=== PATIENT | male | born 1965 | race Caucasian/White ===

== ENCOUNTER 2019-03-28 04:32 | Inpatient (IN) | payer OTHER ==
[~2019-03-28] VITALS: Ht 172.7 cm; Wt 75.4 kg
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
--- OUTSIDE RECORDS SUMMARY | 2019-03-28 04:38 | XMS REPORT | CCD ---
Author Author Auto Generated Organization [facility] Address Unknown Phone Unavailable Care Team Providers Care Ticket Taker Name Role Phone Ken Alvares CP Allergies, Adverse Reactions, Alerts Substance Reaction Status NKDA Active Problem List Condition Effective Dates Status Chest pain Active Medications Medication Instructions Start Date End Date Status Saline Flush 0.9% 5 ml, Route: IVP, Drug Form: INJ, 10/22/2011 10/22/2011 Discontinued PRN, PRN Line Flush, Start date: 10/22/11 15:08:00, Duration: 24 hr, Stop date: 10/23/11 15:07:00 pneumococcal 0.5 ml, Route: IM, Drug Form: INJ, 12/16/2008 12/17/2008 Completed 23-valent vaccine ONCALL, Start date: 12/16/08 10:05:11, Stop date: 01/15/09 9:50:11 Zofran 4 mg, Route: IVP, Drug form: INJ, 10/22/2011 10/22/2011 Completed ONCE, Priority: STAT, Start date: 10/22/11 17:01:00, Stop date: 10/22/11 17:01:00 morphine Sulfate 4 mg, Route: IVP, ONCE, Priority: 10/22/2011 10/22/2011 Completed STAT, Start date: 10/22/11 17:00:00, Stop date: 10/22/11 17:00:00 acetaminophen-hydroc 1 tab, PO, Q4H, PRN, 15 tab, for 10/22/2011 Ordered odone 325 mg-5 mg pain, Substitution Allowed, oral tablet Maintenance, TAB Immunizations Vaccine Date Status pneumococcal 23-valent vaccine 12/17/2008 Auth (Verified) Vital Signs Most recent to oldest [Reference Range]: 1 Height 172.72 cm (10/22/2011 13:28:00) Weight 72.727 kg (10/22/2011 13:28:00) Results URINALYSIS Most recent to oldest [Reference Range]: 1 UA Turbidity [Clear] Clear (10/22/2011 17:00:00) UA Color [Yellow] Yellow *NA* (10/22/2011 17:00:00) UA pH [5.0-8.0] 8.5 *HI* (10/22/2011 17:00:00) UA Spec Grav [<=1.030] 1.010 (10/22/2011 17:00:00) UA Glucose [Negative] Negative (10/22/2011 17:00:00) UA Blood [Negative] Negative (10/22/2011 17:00:00) UA Ketones [Negative] Negative *NA* (10/22/2011 17:00:00) UA Protein [Negative] Trace *ABN* (10/22/2011 17:00:00) UA Urobilinogen [0.1-1.0 EU/dL] 1.0 EU/dL (10/22/2011 17:00:00) UA Bili [Negative] Negative *NA* (10/22/2011 17:00:00) UA Leuk Est [Negative] Negative (10/22/2011 17:00:00) UA Nitrite [Negative] Negative (10/22/2011 17:00:00) UA WBC [None Seen /HPF] 3-5 /HPF (10/22/2011 17:00:00) UA RBC [0-2 /HPF] 0-2 /HPF (10/22/2011 17:00:00) UA Bacteria [None Seen /HPF] Occasional /HPF (10/22/2011 17:00:00) UA Sq Epi [Few /LPF] Rare /LPF (10/22/2011 17:00:00) Micro? Performed (10/22/2011 17:00:00) CHEMISTRY Most recent to oldest [Reference Range]: 1 Sodium Lvl [135-145 mEq/L] 141 mEq/L (10/22/2011 15:00:00) Potassium Lvl [3.5-5.1 mEq/L] 4.2 mEq/L (10/22/2011 15:00:00) Chloride Lvl [95-109 mEq/L] 106 mEq/L (10/22/2011 15:00:00) CO2 [24-32 mEq/L] 26 mEq/L (10/22/2011 15:00:00) AGAP [10.0-20.0 mEq/L] 13.2 mEq/L (10/22/2011 15:00:00) Creatinine Lvl [0.5-1.4 mg/dL] 0.7 mg/dL (10/22/2011 15:00:00) BUN [7-22 mg/dL] 10 mg/dL (10/22/2011 15:00:00) B/C Ratio [6-25] 14 (10/22/2011 15:00:00) Glucose Lvl 92 mg/dL 1 *NA* (10/22/2011:00:00) Total Protein [6.4-8.4 g/dL] 7.2 g/dL (10/22/2011:00:00) Albumin Lvl [3.5-5.0 g/dL] 3.9 g/dL (10/22/2011 15:00:00) Globulin [2.0-4.0 g/dL] 3.3 g/dL (10/22/2011 15:00:00) A/G Ratio [0.7-1.6] 1.2 (10/22/2011 15:00:00) Calcium Lvl [8.5-10.5 mg/dL] 8.7 mg/dL (10/22/2011 15:00:00) ALT [0-65 U/L] 52 U/L (10/22/2011 15:00:00) AST [0-37 U/L] 42 U/L *HI* (10/22/2011 15:00:00) Alk Phos [39-136 U/L] 97 U/L (10/22/2011 15:00:00) Bili Total [0.2-1.3 mg/dL] 0.3 mg/dL (10/22/2011 15:00:00) Lipase Lvl [73-393 U/L] 494 U/L *HI* (10/22/2011 15:00:00) Total CK [12-191 U/L] 23 U/L (10/22/2011 15:00:00) CK MB [0.5-3.6 ng/mL] <0.5 ng/mL (10/22/2011 15:00:00) CK MB Index [0.0-2.5] <2.2 (10/22/2011 15:00:00) Troponin-I [0.00-0.40 ng/mL] <0.02 ng/mL (10/22/2011 15:00:00) U Amph Scr [Negative] Negative *NA* (10/22/2011 17:00:00) U Stephanie Scr [Negative] Negative *NA* (10/22/2011 17:00:00) U Benzodia Scr [Negative] Positive *ABN* (10/22/2011 17:00:00) U Cocaine Scr [Negative] Negative *NA* (10/22/2011 17:00:00) U Opiate Scr [Negative] Negative *NA* (10/22/2011 17:00:00) U Phencyc Scr [Negative] Negative *NA* (10/22/2011 17:00:00) U Cannab Scr [Negative] Positive *ABN* (10/22/2011 17:00:00) UDS Note See Note 2 (10/22/2011 17:00:00) 1Interpretive Data: Reference Ranges : 0 - 7 days : 41 - 90 mg/dL7 days - 150 yrs : 70 - 99 mg/dL (fasting), based on the clinical recommendations of the [place] [employer]. 2Interpretive Data: Drugs reported as positive have not been confirmed by a second method and should be used for medical purposes only. To orderconfirmation, contact laboratory. note: Below are cut-off concentrations for all urine drugs of abuse performed in the laboratory. Some drugs listed in the table may not be included in this panel.Description Cut-off concentration Amphetamine 1000 ng/mLBarbiturates 200 ng/mLBenzodiazepines 300 ng/mLCocaine metabolites 300 ng/mLOpiates 300 ng/mLPhencyclidine 25 ng/mLPropoxyphene 300 ng/mLMarijuana metabolites 50 ng/mLMethadone 300 ng/mLUrine alcohol 20 mg/dL HEMATOLOGY Most recent to oldest [Reference Range]: 1 WBC [3.7-10.4 K/CMM] 2.9 K/CMM *LOW* (10/22/2011 15:00:00) RBC [4.70-6.10 M/CMM] 3.70 M/CMM *LOW* (10/22/2011 15:00:00) Hgb [14.0-18.0 g/dL] 12.2 g/dL *LOW* (10/22/2011 15:00:00) Hct [42.0-54.0 %] 35.3 % *LOW* (10/22/2011:00:00) MCV [80.0-94.0 fL] 95.6 fL *HI* (10/22/2011 15:00:00) MCH [27.0-31.0 pg] 33.1 pg *HI* (10/22/2011:00:00) MCHC [32.0-36.0 g/dL] 34.6 g/dL (10/22/2011 15:00:00) RDW [11.5-14.5 %] 15.4 % *HI* (10/22/2011 15:00:00) Platelet [133-450 K/CMM] 113 K/CMM *LOW* (10/22/2011 15:00:00) MPV [7.4-10.4 fL] 7.5 fL (10/22/2011 15:00:00) Segs [45.0-75.0 %] 36.0 % *LOW* (10/22/2011:00:00) Bands [0.0-11.0 %] 26.0 % *HI* (10/22/2011 15:00:00) Lymphocytes [20.0-40.0 %] 23.0 % (10/22/2011 15:00:00) Monocytes [2.0-12.0 %] 13.0 % *HI* (10/22/2011:00:00) Eosinophils [0.0-4.0 %] 2.0 % (10/22/2011 15:00:00) Segs-Bands # [1.5-8.1 K/CMM] 1.8 K/CMM (10/22/2011 15:00:00) Lymphocytes # [1.0-5.5 K/CMM] 0.7 K/CMM *LOW* (10/22/2011 15:00:00) Monocytes # [0.0-0.8 K/CMM] 0.4 K/CMM (10/22/2011 15:00:00) Eosinophils # [0.0-0.5 K/CMM] 0.1 K/CMM (10/22/2011 15:00:00) Tear Cell [None Seen] Slight *ABN* (10/22/2011 15:00:00) Elliptocyte [None Seen] Slight *ABN* (10/22/2011 15:00:00) Schistocyte [None Seen] 1-3 per HPF (10/22/2011 15:00:00) Plt Morph Normal (10/22/2011 15:00:00)
--- OUTSIDE RECORDS SUMMARY | 2019-03-28 04:39 | XMS REPORT | CCD ---
Author Author Auto Generated Organization [facility] Address Unknown Phone Unavailable Care Team Providers Care Link Wire Fabric Machine Operator Name Role Phone Ariel Weir CP Allergies, Adverse Reactions, Alerts Substance Reaction Status NKDA Active Problem List Condition Effective Dates Status Chest pain Active Medications Medication Instructions Start Date End Date Status morphine Sulfate 4 mg, Route: IVP, Drug form: INJ, 10/26/2011 10/26/2011 Completed ONCE, Priority: STAT, Start date: 10/26/11 15:51:00, Stop date: 10/26/11 15:51:00 ondansetron 4 mg, 2 mL, Route: IVP, Drug form: 10/26/2011 10/26/2011 Completed INJ, ONCE, Priority: STAT, Start date: 10/26/11 15:51:00, Stop date: 10/26/11 15:51:00 Saline Flush 0.9% 5 ml, Route: IVP, Drug Form: INJ, 10/26/2011 10/26/2011 Discontinued PRN, PRN Line Flush, Start date: 10/26/11 15:51:00, Duration: 24 hr, Stop date: 10/27/11 15:50:00 pneumococcal 0.5 ml, Route: IM, Drug Form: INJ, 12/16/2008 12/17/2008 Completed 23-valent vaccine ONCALL, Start date: 12/16/08 10:05:11, Stop date: 01/15/09 9:50:11 Immunizations Vaccine Date Status pneumococcal 23-valent vaccine 12/17/2008 Auth (Verified) Vital Signs Most recent to oldest [Reference Range]: 1 Height 172.72 cm (10/26/2011 13:42:00) Weight 72.727 kg (10/26/2011 13:42:00) Results CHEMISTRY Most recent to oldest [Reference Range]: 1 Sodium Lvl [135-145 mEq/L] 144 mEq/L (10/26/2011 16:09:00) Potassium Lvl [3.5-5.1 mEq/L] 3.6 mEq/L (10/26/2011 16:09:00) Chloride Lvl [95-109 mEq/L] 111 mEq/L *HI* (10/26/2011 16:09:00) CO2 [24-32 mEq/L] 24 mEq/L (10/26/2011 16:09:00) AGAP [10.0-20.0 mEq/L] 12.6 mEq/L (10/26/2011 16:09:00) Creatinine Lvl [0.5-1.4 mg/dL] 0.7 mg/dL (10/26/2011 16:09:00) BUN [7-22 mg/dL] 8 mg/dL (10/26/2011 16:09:00) B/C Ratio [6-25] 11 (10/26/2011:09:00) Glucose Lvl 100 mg/dL 1 *NA* (10/26/2011 16:09:00) Total Protein [6.4-8.4 g/dL] 7.1 g/dL (10/26/2011 16:09:00) Albumin Lvl [3.5-5.0 g/dL] 3.7 g/dL (10/26/2011 16:09:00) Globulin [2.0-4.0 g/dL] 3.4 g/dL (10/26/2011 16:09:00) A/G Ratio [0.7-1.6] 1.1 (10/26/2011:09:00) Calcium Lvl [8.5-10.5 mg/dL] 8.9 mg/dL (10/26/2011 16:09:00) ALT [0-65 U/L] 62 U/L (10/26/2011 16:09:00) AST [0-37 U/L] 33 U/L (10/26/2011 16:09:00) Alk Phos [39-136 U/L] 119 U/L (10/26/2011 16:09:00) Bili Total [0.2-1.3 mg/dL] 0.3 mg/dL (10/26/2011 16:09:00) Amylase Lvl [25-115 U/L] 31 U/L (10/26/2011 16:09:00) Lipase Lvl [73-393 U/L] 142 U/L (10/26/2011 16:09:00) 1Interpretive Data: Reference Ranges : 0 - 7 days : 41 - 90 mg/dL7 days - 150 yrs : 70 - 99 mg/dL (fasting), based on the clinical recommendations of the [place] [employer]. HEMATOLOGY Most recent to oldest [Reference Range]: 1 WBC [3.7-10.4 K/CMM] 2.7 K/CMM *LOW* (10/26/2011 16:09:00) RBC [4.70-6.10 M/CMM] 3.70 M/CMM *LOW* (10/26/2011 16:09:00) Hgb [14.0-18.0 g/dL] 12.2 g/dL *LOW* (10/26/2011 16:09:00) Hct [42.0-54.0 %] 35.0 % *LOW* (10/26/2011 16:09:00) MCV [80.0-94.0 fL] 94.7 fL *HI* (10/26/2011 16:09:00) MCH [27.0-31.0 pg] 32.9 pg *HI* (10/26/2011 16:09:00) MCHC [32.0-36.0 g/dL] 34.8 g/dL (10/26/2011 16:09:00) RDW [11.5-14.5 %] 15.2 % *HI* (10/26/2011 16:09:00) Platelet [133-450 K/CMM] 100 K/CMM *LOW* (10/26/2011 16:09:00) MPV [7.4-10.4 fL] 7.9 fL (10/26/2011 16:09:00) Segs [45.0-75.0 %] 61.0 % (10/26/2011 16:09:00) Bands [0.0-11.0 %] 4.0 % (10/26/2011 16:09:00) Lymphocytes [20.0-40.0 %] 22.0 % (10/26/2011 16:09:00) Atypical Lymphs [<=0.0 %] 4.0 % *HI* (10/26/2011 16:09:00) Monocytes [2.0-12.0 %] 7.0 % (10/26/2011 16:09:00) Eosinophils [0.0-4.0 %] 2.0 % (10/26/2011 16:09:00) Segs-Bands # [1.5-8.1 K/CMM] 1.8 K/CMM (10/26/2011 16:09:00) Lymphocytes # [1.0-5.5 K/CMM] 0.7 K/CMM *LOW* (10/26/2011 16:09:00) Monocytes # [0.0-0.8 K/CMM] 0.2 K/CMM (10/26/2011 16:09:00) Eosinophils # [0.0-0.5 K/CMM] 0.1 K/CMM (10/26/2011 16:09:00) RBC Morph See Note (10/26/2011 16:09:00) Anisocyte [None Seen] 1+ *ABN* (10/26/2011 16:09:00) Polychrom [None Seen] Slight (10/26/2011 16:09:00) Hypochrom [None Seen] Slight (10/26/2011 16:09:00) Tear Cell [None Seen] Slight *ABN* (10/26/2011 16:09:00) Elliptocyte [None Seen] Slight *ABN* (10/26/2011 16:09:00) Neut Vac [None Seen] Slight *ABN* (10/26/2011 16:09:00) Hayden Cell [None Seen] Slight *ABN* (10/26/2011 16:09:00) Schistocyte [None Seen] 1-3 per HPF (10/26/2011 16:09:00) Plt Morph Normal (10/26/2011 16:09:00)
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
--- OUTSIDE RECORDS SUMMARY | 2019-03-28 04:39 | XMS REPORT | CCD ---
Author Author Auto Generated Organization [facility] Address Unknown Phone Unavailable Care Team Providers Care Casing Finisher And Stuffer Name Role Phone Ariel Nunez CP Allergies, Adverse Reactions, Alerts Substance Reaction Status NKDA Active Problem List Condition Effective Dates Status Chest pain Active Medications Medication Instructions Start Date End Date Status ondansetron 4 mg, 2 mL, Route: IVP, Drug form: 11/21/2011 11/21/2011 Completed INJ, ONCE, Priority: STAT, Start date: 11/21/11 10:21:00, Stop date: 11/21/11 10:21:00 morphine Sulfate 4 mg, 2 mL, Route: IVP, Drug form: 11/21/2011 11/21/2011 Completed INJ, ONCE, Priority: STAT, Start date: 11/21/11 10:21:00, Stop date: 11/21/11 10:21:00 Saline Flush 0.9% 5 ml, Route: IVP, Drug Form: INJ, 11/21/2011 11/21/2011 Discontinued PRN, PRN Line Flush, Start date: 11/21/11 10:21:00, Duration: 24 hr, Stop date: 11/22/11 11:20:00 pneumococcal 0.5 ml, Route: IM, Drug Form: INJ, 12/16/2008 12/17/2008 Completed 23-valent vaccine ONCALL, Start date: 12/16/08 10:05:11, Stop date: 01/15/09 9:50:11 Immunizations Vaccine Date Status pneumococcal 23-valent vaccine 12/17/2008 Auth (Verified) Vital Signs Most recent to oldest [Reference Range]: 1 Height 167.64 cm (11/21/2011 10:00:00) Weight 81.818 kg (11/21/2011 10:00:00) Results CHEMISTRY Most recent to oldest [Reference Range]: 1 Sodium Lvl [135-145 mEq/L] 144 mEq/L (11/21/2011 11:00:00) Potassium Lvl [3.5-5.1 mEq/L] 4.3 mEq/L (11/21/2011 11:00:00) Chloride Lvl [95-109 mEq/L] 109 mEq/L (11/21/2011 11:00:00) CO2 [24-32 mEq/L] 25 mEq/L (11/21/2011 11:00:00) AGAP [10.0-20.0 mEq/L] 14.3 mEq/L (11/21/2011 11:00:00) Creatinine Lvl [0.5-1.4 mg/dL] 0.7 mg/dL (11/21/2011 11:00:00) BUN [7-22 mg/dL] 5 mg/dL *LOW* (11/21/2011 11:00:00) B/C Ratio [6-25] 7 (11/21/2011 11:00:00) Glucose Lvl 103 mg/dL 1 *NA* (11/21/2011 11:00:00) Total Protein [6.4-8.4 g/dL] 7.4 g/dL (11/21/2011 11:00:00) Albumin Lvl [3.5-5.0 g/dL] 3.9 g/dL (11/21/2011 11:00:00) Globulin [2.0-4.0 g/dL] 3.5 g/dL (11/21/2011 11:00:00) A/G Ratio [0.7-1.6] 1.1 (11/21/2011 11:00:00) Calcium Lvl [8.5-10.5 mg/dL] 8.9 mg/dL (11/21/2011 11:00:00) ALT [0-65 U/L] 31 U/L (11/21/2011 11:00:00) AST [0-37 U/L] 25 U/L (11/21/2011 11:00:00) Alk Phos [39-136 U/L] 109 U/L (11/21/2011 11:00:00) Bili Total [0.2-1.3 mg/dL] 0.2 mg/dL (11/21/2011 11:00:00) Amylase Lvl [25-115 U/L] 37 U/L (11/21/2011 11:00:00) Lipase Lvl [73-393 U/L] 185 U/L (11/21/2011 11:00:00) Total CK [12-191 U/L] 37 U/L (11/21/2011 11:00:00) CK MB [0.5-3.6 ng/mL] 1.1 ng/mL (11/21/2011 11:00:00) CK MB Index [0.0-2.5] 3.0 *HI* (11/21/2011 11:00:00) Troponin-I [0.00-0.40 ng/mL] <0.02 ng/mL (11/21/2011 11:00:00) 1Interpretive Data: Reference Ranges : 0 - 7 days : 41 - 90 mg/dL7 days - 150 yrs : 70 - 99 mg/dL (fasting), based on the clinical recommendations of the [place] [employer]. HEMATOLOGY Most recent to oldest [Reference Range]: 1 WBC [3.7-10.4 K/CMM] 2.4 K/CMM *LOW* (11/21/2011 11:00:00) RBC [4.70-6.10 M/CMM] 3.82 M/CMM *LOW* (11/21/2011 11:00:00) Hgb [14.0-18.0 g/dL] 12.3 g/dL *LOW* (11/21/2011 11:00:00) Hct [42.0-54.0 %] 36.3 % *LOW* (11/21/2011 11:00:00) MCV [80.0-94.0 fL] 95.0 fL *HI* (11/21/2011 11:00:00) MCH [27.0-31.0 pg] 32.1 pg *HI* (11/21/2011 11:00:00) MCHC [32.0-36.0 g/dL] 33.8 g/dL (11/21/2011 11:00:00) RDW [11.5-14.5 %] 14.5 % (11/21/2011 11:00:00) Platelet [133-450 K/CMM] 82 K/CMM *LOW* (11/21/2011 11:00:00) MPV [7.4-10.4 fL] 7.2 fL *LOW* (11/21/2011 11:00:00) Segs [45.0-75.0 %] 68.8 % (11/21/2011 11:00:00) Lymphocytes [20.0-40.0 %] 24.1 % (11/21/2011 11:00:00) Monocytes [2.0-12.0 %] 5.0 % (11/21/2011 11:00:00) Eosinophils [0.0-4.0 %] 1.9 % (11/21/2011 11:00:00) Basophils [0.0-1.0 %] 0.2 % (11/21/2011 11:00:00) Segs-Bands # [1.5-8.1 K/CMM] 1.7 K/CMM (11/21/2011 11:00:00) Lymphocytes # [1.0-5.5 K/CMM] 0.6 K/CMM *LOW* (11/21/2011 11:00:00) Monocytes # [0.0-0.8 K/CMM] 0.1 K/CMM (11/21/2011 11:00:00) Eosinophils # [0.0-0.5 K/CMM] 0.0 K/CMM (11/21/2011 11:00:00) Basophils # [0.0-0.2 K/CMM] 0.0 K/CMM (11/21/2011 11:00:00) RBC Morph Normal (11/21/2011 11:00:00) Plt Morph Normal (11/21/2011 11:00:00)
--- OUTSIDE RECORDS SUMMARY | 2019-03-28 04:39 | XMS REPORT ---
Author Author Jovi Elizabeth [facility] eClinicalWorks Address Unknown Phone Unavailable Care Team Providers Care Merchandise Associate Name Role Phone Jovi Elizabeth CP Unavailable Allergies, Adverse Reactions, Alerts Substance Reaction Event Type N.K.D.A. 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 Problem Splenomegaly R16.1 Active Medications Medication Code System Code Instructions Start Date End Date Status Dosage Ergocalciferol [facility] 17732542362 [address]63 UNIT Orally once week Oct 26, 2018 January 24, 2019 Active 1 capsule Toprol XL [facility] 13687243064 25 MG Orally Once a day December 16, 2018 Active 1 tablet Pantoprazole Sodium [facility] 06078245587 40 MG Orally Once a day Active 1 tablet Losartan Potassium ND 03524581090 25 MG Orally Once a day Active 1 tablet Suboxone [facility] 47356530425 8-2 MG Sublingual three times a day (tid) Active 1 tablet under the tongue and allow to dissolve Mucinex [facility] [address]-79 600 MG Orally every 12 hrs December 16, 2018 December 31, 2018 Active 1 tablet as needed Metoprolol Succinate ND 0 50 mg Orally once a day Active not defined Mirtazapine ND 73148536318 30 MG Orally Once a day Active 1 tablet before bedtime in the evening Fish Oil [facility] 85181513248 1200 MG Orally Once a day Active 1 capsule Lactulose [facility] 82162805839 20 GM/30ML Orally twice a day (bid) December 16, 2018 Jun 14, 2019 Active 15 ml Vital Signs Date/Time: December 16, 2018 BMI 29.98 Index Weight 186.3 lbs Height 66.1 in Temperature 98.4 F Cardiac Monitoring Heart Rate 79 /min Blood Pressure Diastolic 62 mm Hg Blood Pressure Systolic 125 mm Hg Results No Known Results Summary Purpose eClinicalWorks Submission
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
--- OUTSIDE RECORDS SUMMARY | 2019-03-28 04:40 | XMS REPORT ---
Author Author Jovi Elizabeth Organization [employer] Address Unknown Phone Unavailable Care Team Providers Care Shellfish Bed Worker Name Role Phone Jovi Elizabeth CP Unavailable Allergies, Adverse Reactions, Alerts Substance Reaction Event Type N.K.D.A. 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 Problem COPD exacerbation J44.1 Active Problem Splenomegaly R16.1 Active Problem Portal hypertension K76.6 Active Problem Hepatitis C B19.20 Active Problem Hx of pancreatitis Z87.19 Active Medications Medication Code System Code Instructions Start Date End Date Status Dosage ProAir HFA [facility] 37762457088 108 (90 Base) MCG/ACT Inhalation every 6 hrs January 13, 2019 Active 2 puffs as needed Medrol (Dimitri) NDC 0 4 mg Orally as directed January 13, 2019 January 19, 2019 Active as directed Toprol XL ND 58485026442 25 MG Orally Once a day December 16, 2018 Active 1 tablet Lactulose ND 53554456182 20 GM/30ML Orally twice a day (bid) December 16, 2018 Jun 14, 2019 Active 15 ml Ceftin NDC 0 500 mg Orally every 12 hrs January 13, 2019 January 23, 2019 Active 1 tablet Suboxone [facility] 32822289385 8-2 MG Sublingual three times a day (tid) Active 1 tablet under the tongue and allow to dissolve Omeprazole ND 64643474659 40 mg Orally Once a day January 13, 2019 Active 1 capsule Metoprolol Succinate [facility] [address]-53 50 mg Orally once a day Active not defined Losartan Potassium ND 07602710754 25 MG Orally Once a day Active 1 tablet Clonazepam ND 52577313095 1 MG Orally Once a day Active 1 tablet Fish Oil ND 23031421230 1200 MG Orally Once a day Active 1 capsule Mirtazapine [facility] 49564840030 30 MG Orally Once a day Active 1 tablet before bedtime in the evening Pantoprazole Sodium [facility] 56285900515 40 MG Orally Once a day Active 1 tablet Ergocalciferol [facility] 12526662444 [address] UNIT Orally once week Oct 26, 2018 January 24, 2019 Active 1 capsule Vital Signs Date/Time: January 13, 2019 BMI 28.95 Index Weight 179.9 lbs Height 66.1 in Temperature 98.2 F Cardiac Monitoring Heart Rate 89 /min Blood Pressure Diastolic 75 mm Hg Blood Pressure Systolic 143 mm Hg Results No Known Results Summary Purpose eClinicalWorks Submission
--- OUTSIDE RECORDS SUMMARY | 2019-03-28 04:40 | XMS REPORT ---
Author Author Jovi Elizabeth [facility] eClinicalWorks Address Unknown Phone Unavailable Care Team Providers Care Full Time Babysitter Name Role Phone Jovi Elizabeth CP Unavailable Allergies, Adverse Reactions, Alerts Substance Reaction Event Type N.K.D.A. 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 24786571879 20 MG Orally Once a day Active 1 tablet Metoprolol Succinate ER ND 98096550479 25 MG Orally Once a day Active 1 tablet Fish Oil [facility] 62277488043 1200 MG Orally Once a day Active 1 capsule Spironolactone [facility] 61086101721 100 MG Orally Once a day Active 1 tablet Lactulose [facility] 24683064802 20 GM/30ML Orally twice a day (bid) December 16, 2018 Jun 14, 2019 Active 15 ml Clonazepam [facility] 93670717079 1 MG Orally Once a day Active 1 tablet Suboxone [facility] 79965954407 8-2 MG Sublingual three times a day (tid) Active 1 tablet under the tongue and allow to dissolve Losartan Potassium ND 15312428237 25 MG Orally Once a day Active 1 tablet Cefdinir [facility] [address]-42 300 MG Orally twice a day (bid) Active as directed Neurontin ND 80994102967 100 mg Orally Twice a day January 27, 2019 Active 1 capsule Mirtazapine [facility] 07394785421 30 MG Orally Once a day Active 1 tablet before bedtime in the evening Pantoprazole Sodium [facility] 77213698174 40 MG Orally Once a day Active 1 tablet [place] [facility] 97822904551 5-325 MG Orally every 6 hrs February 21, 2019 March 08, 2019 Active 1 tablet as needed Toprol XL [facility] 87806089410 25 MG Orally Once a day December 16, 2018 Active 1 tablet Metoprolol Succinate [facility] [address]-47 50 mg Orally once a day Active not defined Omeprazole [facility] 84660491148 40 mg Orally Once a day January 13, 2019 Active 1 capsule ProAir HFA [facility] 89509507881 108 (90 Base) MCG/ACT Inhalation every 6 hrs January 13, 2019 Active 2 puffs as needed Vital Signs Date/Time: February 21, 2019 BMI 28.72 Index Weight 178.5 lbs Height 66.1 in Temperature 97.0 F Cardiac Monitoring Heart Rate 88 /min Blood Pressure Diastolic 70 mm Hg Blood Pressure Systolic 133 mm Hg Results No Known Results Summary Purpose eClinicalWorks Submission
--- OUTSIDE RECORDS SUMMARY | 2019-03-28 04:40 | XMS REPORT ---
Author Author Jovi Elizabeth [facility] eClinicalWorks Address Unknown Phone Unavailable Care Team Providers Care Field Administrative Assistant Name Role Phone Jovi Elizabeth CP Unavailable Allergies, Adverse Reactions, Alerts Substance Reaction Event Type N.K.D.A. 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 Problem Splenomegaly R16.1 Active Assessment Splenomegaly R16.1 Active Assessment Portal hypertension K76.6 Active Assessment Hx of pancreatitis Z87.19 Active Assessment Pancytopenia D61.818 Active Assessment Hepatitis C B19.20 Active Assessment Benign essential hypertension I10 Active Assessment 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 Assessment Coronary atherosclerosis of [place] coronary artery I25.10 Active Assessment Hepatic cirrhosis K74.60 Active Assessment Encounter for general adult medical examination with abnormal findings Z00.01 Active Medications Medication Code System Code Instructions Start Date End Date Status Dosage Pantoprazole Sodium [facility] 79418434702 40 MG Orally Once a day Active 1 tablet Mirtazapine [facility] 23598566886 30 MG Orally Once a day Active 1 tablet before bedtime in the evening Fish Oil [facility] 09868226319 1200 MG Orally Once a day Active 1 capsule Suboxone [facility] 80958467352 8-2 MG Sublingual three times a day (tid) Active 1 tablet under the tongue and allow to dissolve Prevnar 13 [facility] 30118458274 - Intramuscular as directed Aug 17, 2018 Aug 18, 2018 Active as directed Metoprolol Succinate ND 0 50 mg Orally once a day Active not defined Losartan Potassium ND 44808136195 25 MG Orally Once a day Active 1 tablet Vital Signs Date/Time: Aug 17, 2018 BMI 29.49 Index Weight 183.3 lbs Height 66.1 in Temperature 97.7 F Cardiac Monitoring Heart Rate 79 /min Blood Pressure Diastolic 63 mm Hg Blood Pressure Systolic 116 mm Hg Results No Known Results Summary Purpose eClinicalWorks Submission
--- OUTSIDE RECORDS SUMMARY | 2019-03-28 04:41 | XMS REPORT ---
Author Author Jovi Elizabeth [facility] eClinicalWorks Address Unknown Phone Unavailable Care Team Providers Care Locomotive Electrician Name Role Phone Jovi Elizabeth CP Unavailable Allergies No Known Allergies Problems Problem Type Condition Code Onset Dates Condition Status Problem Benign essential hypertension I10 Active Problem Coronary atherosclerosis of [place] coronary artery I25.10 Active Problem Hx of pancreatitis Z87.19 Active Problem Hepatic cirrhosis K74.60 Active Problem Hepatitis C B19.20 Active Problem Portal hypertension K76.6 Active Problem Pancytopenia D61.818 Active Problem 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
--- OUTSIDE RECORDS SUMMARY | 2019-03-28 04:41 | XMS REPORT ---
Author Author Jovi Elizabeth [facility] eClinicalWorks Address Unknown Phone Unavailable Care Team Providers Care Jewel Bearing Broacher Name Role Phone Jovi Elizabeth CP Unavailable Allergies, Adverse Reactions, Alerts Substance Reaction Event Type N.K.D.A. 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10 Active Assessment Hepatic cirrhosis K74.60 Active Assessment Benign essential hypertension I10 Active Medications Medication Code System Code Instructions Start Date End Date Status Dosage Twinrix [facility] [address]-37 720-20 Intramuscular as directed January 27, 2016 January 28, 2016 Active as directed Fish Oil [facility] [address]-77 1200 MG Orally Once a day Active 1 capsule Pantoprazole Sodium [facility] [address]-77 40 MG Orally Once a day Active 1 tablet Mirtazapine [facility] [address]-94 30 MG Orally Once a day Active 1 tablet before bedtime in the evening omeprazole 40 mg Cap, Delayed Release Unknown 0 40 mg by ORAL route Oct 23, 2011 Inactive take [place] 10 mg-325 mg Tab Unknown 0 10-325 mg by ORAL route Oct 23, 2011 Inactive take Losartan Potassium [facility] [address]-35 25 MG Orally Once a day Active 1 tablet Metoprolol Succinate Unknown 0 50 MG Orally Active Unknown Suboxone [facility] [address]-88 8-2 MG Sublingual three times a day (tid) Active 1 tablet under the tongue and allow to dissolve Pancreaze 4,200-10,000-17,500 unit Cap Unknown 0 4,200-10,000 -17,500 unit -17,500 unit Oct 23, 2011 Inactive Unknown Social History Social History Element Qualifiers Date Reported Tobacco Use: . Are you a: former smoker HE IS QUITTING TODAY. 01/27/16, How much do you smoke? Half of a pack to a full pack per day, Pack Years 20, What year did you quit? 2015January 27, 2016 Use of recreational / street drugs? . Answer: No January 27, 2016 Marital Status: . January 27, 2016 Do you drink alcohol? . Status: No January 27, 2016 Occupation: . NOT WOKING--ON SSI January 27, 2016 Vital Signs Date/Time: January 27, 2016 Weight 202.7 lbs Height 66.1 in Temperature 97.9 F Cardiac Monitoring Heart Rate 76 /min Blood Pressure Diastolic 78 mm Hg Blood Pressure Systolic 149 mm Hg Immunizations Vaccine Administration Date Pneumococcal January 27, 2016 Summary Purpose eClinicalWorks Submission
--- OUTSIDE RECORDS SUMMARY | 2019-03-28 04:41 | XMS REPORT ---
Author Author Jovi Elizabeth Organization eClinicalWorks Address Unknown Phone Unavailable Care Team Providers Care Nuclear Equipment Operator Name Role Phone Jovi Elizabeth CP Unavailable Allergies No Known Allergies Problems Problem Type Condition Code Onset Dates Condition Status Problem Benign essential hypertension I10 Active Problem Coronary atherosclerosis of [place] coronary artery I25.10 Active Problem Hx of pancreatitis Z87.19 Active Problem Hepatic cirrhosis K74.60 Active Problem Hepatitis C B19.20 Active Problem Portal hypertension K76.6 Active Problem Pancytopenia D61.818 Active Problem 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
--- OUTSIDE RECORDS SUMMARY | 2019-03-28 04:41 | XMS REPORT ---
Author Author Jovi Elizabeth [facility] eClinicalWorks Address Unknown Phone Unavailable Care Team Providers Care Counter Server Name Role Phone Jovi Elizabeth CP Unavailable Allergies, Adverse Reactions, Alerts Substance Reaction Event Type N.K.D.A. 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 Problem Hepatitis C B19.20 Active Problem Pancytopenia D61.818 Active Problem Hx of pancreatitis Z87.19 Active Problem Portal hypertension K76.6 Active Problem Splenomegaly R16.1 Active Assessment Portal hypertension K76.6 Active Assessment Hepatic cirrhosis K74.60 Active Assessment Wheezing R06.2 Active Assessment Hepatitis C B19.20 Active Assessment Pancytopenia D61.818 Active Assessment Coronary atherosclerosis 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 Active Medications Medication Code System Code Instructions Start Date End Date Status Dosage Pantoprazole Sodium [facility] [address]-17 40 MG Orally Once a day Active 1 tablet Losartan Potassium [facility] [address]-94 25 MG Orally Once a day Active 1 tablet Breo Ellipta [facility] [address]-96 200-25 MCG/INH Inhalation Once a day November 13, 2016 February 13, 2017 Active 1 puff Mirtazapine [facility] [address]-43 30 MG Orally Once a day Active 1 tablet before bedtime in the evening Fish Oil [facility] [address]-12 1200 MG Orally Once a day Active 1 capsule Metoprolol Succinate Unknown 0 50 MG Orally Active Unknown Suboxone [facility] [address]-37 8-2 MG Sublingual three times a day (tid) Active 1 tablet under the tongue and allow to dissolve Social History Social History Element Qualifiers Date [...] . NOT WOKING--ON SSI November 13, 2016 Family history Qualifier Description Comment Date Reported Maternal Grandmother Comment not available November [...] SISTER HAD BREAST CA November 13, 2016 Vital Signs Date/Time: November 13, 2016 Weight 203.0 lbs Height 66.1 in Temperature 98.0 F Cardiac Monitoring Heart Rate 74 /min Blood Pressure Diastolic 63 mm Hg Blood Pressure Systolic 117 mm Hg Summary Purpose eClinicalWorks Submission
--- OUTSIDE RECORDS SUMMARY | 2019-03-28 04:41 | XMS REPORT ---
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 NOT WOKING--ON SSI January 27, 2016 Summary Purpose eClinicalWorks Submission
--- OUTSIDE RECORDS SUMMARY | 2019-03-28 04:42 | XMS REPORT ---
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 Allergies, Adverse Reactions, Alerts Allergy Name Allergy Type Status Severity Reaction(s) Onset Date Inactive Date Treating Clinician Comments No Known Allergies DA Active U 2016 00:00:00 Medications This patient has no known medications. Results Test Description Test Time Test Comments Text Results Atomic Results Result Comments AMMONIA 2019-02-17 06:15:00 AMMONIA (test code=AMM) 25 umol/L 0-35 CBC W/AUTO [id number] 08:14:00* Test Item Value Reference Range Comments WHITE BLOOD CELL (test code=WBC) 1.98 x10 3/uL 4.5-11.0 RED BLOOD CELL (test code=RBC) 2.83 x10 6/uL 4.00-5.60 HEMOGLOBIN (test code=HGB) 8.5 g/dL 12.5-16.9 HEMATOCRIT (test code=HCT) 25.4 % 37.5-50.7 MEAN CELL VOLUME (test code=MCV) 89.8 fL 81.0-99.0 MEAN CELL HGB (test code=MCH) 30.0 pg 27.0-33.0 MEAN CELL HGB CONCETRATION (test code=MCHC) 33.5 g/dL 33.0-37.0 RED CELL DISTRIBUTION WIDTH CV (test code=RDW) 15.5 % 11.5-14.5 RED CELL DISTRIBUTION WIDTH SD (test code=RDW-SD) 49.0 fL 37.0-54.0 PLATELET COUNT (test code=PLT) x10 3/uL 150-400 SEE PLT ESTIMATE MEAN PLATELET VOLUME (test code=MPV) 10.5 fL 7.0-9.0 NEUTROPHIL % (test code=NT%) 56.6 % 56.0-77.0 IMMATURE GRANULOCYTE % (test code=IG%) 0.5 % 0.0-2.0 LYMPHOCYTE % (test code=LY%) 27.8 % 14.0-32.0 MONOCYTE % (test code=MO%) 12.1 % 4.8-9.0 EOSINOPHIL % (test code=EO%) 2.0 % 0.3-3.7 BASOPHIL % (test code=BA%) 1.0 % 0.0-2.0 NUCLEATED RBC % (test code=NRBC%) 0.0 % 0-0 NEUTROPHIL # (test code=NT#) 1.12 x10 3/uL 2.0-7.6 IMMATURE GRANULOCYTE # (test code=IG#) 0.01 x10 3/uL 0.00-0.03 LYMPHOCYTE # (test code=LY#) 0.55 x10 3/uL 1.0-3.8 MONOCYTE # (test code=MO#) 0.24 x10 3/uL 0.1-0.8 EOSINOPHIL # (test code=EO#) 0.04 x10 3/uL 0.0-0.2 BASOPHIL # (test code=BA#) 0.02 x10 3/uL 0.0-0.2 NUCLEATED RBC # (test code=NRBC#) 0.00 x10 3/uL 0.0-0.1 MANUAL DIFF REQUIRED (test code=MDIFF) NO SLIDE REVIEWED, CONSISTENT WITH AUTO DIFF. COMMENTS: Daily while in ICUPLT [id number] 08:14:00* Test Item Value Reference Range Comments PLATELET ESTIMATE (test code=PLTEST) 72-90 THOUSAND ADEQUATE PLATELET MORPHOLOGY (test code=PLTMORPH) LARGE PLATELETS COMMENTS: Daily while in ICUCBC W/AUTO [id number] 08:13:00* Test Item Value Reference Range Comments WHITE BLOOD CELL (test code=WBC) 1.98 x10 3/uL 4.5-11.0 RED BLOOD CELL (test code=RBC) 2.83 x10 6/uL 4.00-5.60 HEMOGLOBIN (test code=HGB) 8.5 g/dL 12.5-16.9 HEMATOCRIT (test code=HCT) 25.4 % 37.5-50.7 MEAN CELL VOLUME (test code=MCV) 89.8 fL 81.0-99.0 MEAN CELL HGB (test code=MCH) 30.0 pg 27.0-33.0 MEAN CELL HGB CONCETRATION (test code=MCHC) 33.5 g/dL 33.0-37.0 RED CELL DISTRIBUTION WIDTH CV (test code=RDW) 15.5 % 11.5-14.5 RED CELL DISTRIBUTION WIDTH SD (test code=RDW-SD) 49.0 fL 37.0-54.0 PLATELET COUNT (test code=PLT) x10 3/uL 150-400 SEE PLT ESTIMATE MEAN PLATELET VOLUME (test code=MPV) 10.5 fL 7.0-9.0 NEUTROPHIL % (test code=NT%) 56.6 % 56.0-77.0 IMMATURE GRANULOCYTE % (test code=IG%) 0.5 % 0.0-2.0 LYMPHOCYTE % (test code=LY%) 27.8 % 14.0-32.0 MONOCYTE % (test code=MO%) 12.1 % 4.8-9.0 EOSINOPHIL % (test code=EO%) 2.0 % 0.3-3.7 BASOPHIL % (test code=BA%) 1.0 % 0.0-2.0 NUCLEATED RBC % (test code=NRBC%) 0.0 % 0-0 NEUTROPHIL # (test code=NT#) 1.12 x10 3/uL 2.0-7.6 IMMATURE GRANULOCYTE # (test code=IG#) 0.01 x10 3/uL 0.00-0.03 LYMPHOCYTE # (test code=LY#) 0.55 x10 3/uL 1.0-3.8 MONOCYTE # (test code=MO#) 0.24 x10 3/uL 0.1-0.8 EOSINOPHIL # (test code=EO#) 0.04 x10 3/uL 0.0-0.2 BASOPHIL # (test code=BA#) 0.02 x10 3/uL 0.0-0.2 NUCLEATED RBC # (test code=NRBC#) 0.00 x10 3/uL 0.0-0.1 MANUAL DIFF REQUIRED (test code=MDIFF) NO SLIDE REVIEWED, CONSISTENT WITH AUTO DIFF. COMMENTS: Daily while in ICUPLT [id number] 08:13:00* Test Item Value Reference Range Comments PLATELET ESTIMATE (test code=PLTEST) THOUSAND ADEQUATE COMMENTS: Daily while in ICUCBC W/AUTO [id number] 08:13:00* Test Item Value Reference Range Comments WHITE BLOOD CELL (test code=WBC) 1.98 x10 3/uL 4.5-11.0 RED BLOOD CELL (test code=RBC) 2.83 x10 6/uL 4.00-5.60 HEMOGLOBIN (test code=HGB) 8.5 g/dL 12.5-16.9 HEMATOCRIT (test code=HCT) 25.4 % 37.5-50.7 MEAN CELL VOLUME (test code=MCV) 89.8 fL 81.0-99.0 MEAN CELL HGB (test code=MCH) 30.0 pg 27.0-33.0 MEAN CELL HGB CONCETRATION (test code=MCHC) 33.5 g/dL 33.0-37.0 RED CELL DISTRIBUTION WIDTH CV (test code=RDW) 15.5 % 11.5-14.5 RED CELL DISTRIBUTION WIDTH SD (test code=RDW-SD) 49.0 fL 37.0-54.0 PLATELET COUNT (test code=PLT) x10 3/uL 150-400 SEE PLT ESTIMATE MEAN PLATELET VOLUME (test code=MPV) 10.5 fL 7.0-9.0 NEUTROPHIL % (test code=NT%) 56.6 % 56.0-77.0 IMMATURE GRANULOCYTE % (test code=IG%) 0.5 % 0.0-2.0 LYMPHOCYTE % (test code=LY%) 27.8 % 14.0-32.0 MONOCYTE % (test code=MO%) 12.1 % 4.8-9.0 EOSINOPHIL % (test code=EO%) 2.0 % 0.3-3.7 BASOPHIL % (test code=BA%) 1.0 % 0.0-2.0 NUCLEATED RBC % (test code=NRBC%) 0.0 % 0-0 NEUTROPHIL # (test code=NT#) 1.12 x10 3/uL 2.0-7.6 IMMATURE GRANULOCYTE # (test code=IG#) 0.01 x10 3/uL 0.00-0.03 LYMPHOCYTE # (test code=LY#) 0.55 x10 3/uL 1.0-3.8 MONOCYTE # (test code=MO#) 0.24 x10 3/uL 0.1-0.8 EOSINOPHIL # (test code=EO#) 0.04 x10 3/uL 0.0-0.2 BASOPHIL # (test code=BA#) 0.02 x10 3/uL 0.0-0.2 NUCLEATED RBC # (test code=NRBC#) 0.00 x10 3/uL 0.0-0.1 MANUAL DIFF REQUIRED (test code=MDIFF) NO SLIDE REVIEWED, CONSISTENT WITH AUTO DIFF. COMMENTS: Daily while in ICUPLT [id number] 08:13:00* Test Item Value Reference Range Comments PLATELET ESTIMATE (test code=PLTEST) THOUSAND ADEQUATE COMMENTS: Daily while in ICUBASIC METABOLIC [id number] 08:05:00* Test Item Value Reference Range Comments SODIUM (test code=NA) 139 mEq/L 134-147 POTASSIUM (test code=K) 3.7 mEq/L 3.4-5.0 CHLORIDE (test code=CL) 108 mEq/L 100-108 CARBON DIOXIDE (test code=CO2) 26 mEq/L 21-33 ANION GAP (test code=GAP) 9 0-20 GLUCOSE (test code=GLU) 92 mg/dL 70-110 BLOOD UREA NITROGEN (test code=BUN) 14 mg/dL 7-18 GLOMERULAR FILTRATION RATE (test code=GFR) 173.9 90-95 Units of measure=ml/min/1.73 m2 CREATININE (test code=CREAT) 0.5 mg/dL 0.6-1.3 CALCIUM (test code=CA) 7.8 mg/dL 8.0-10.5 COMMENTS: Daily while in ICUCBC W/AUTO [id number] 07:41:00* Test Item Value Reference Range Comments WHITE BLOOD CELL (test code=WBC) 1.98 x10 3/uL 4.5-11.0 RED BLOOD CELL (test code=RBC) 2.83 x10 6/uL 4.00-5.60 HEMOGLOBIN (test code=HGB) 8.5 g/dL 12.5-16.9 HEMATOCRIT (test code=HCT) 25.4 % 37.5-50.7 MEAN CELL VOLUME (test code=MCV) 89.8 fL 81.0-99.0 MEAN CELL HGB (test code=MCH) 30.0 pg 27.0-33.0 MEAN CELL HGB CONCETRATION (test code=MCHC) 33.5 g/dL 33.0-37.0 RED CELL DISTRIBUTION WIDTH CV (test code=RDW) 15.5 % 11.5-14.5 RED CELL DISTRIBUTION WIDTH SD (test code=RDW-SD) 49.0 fL 37.0-54.0 PLATELET COUNT (test code=PLT) x10 3/uL 150-400 SEE PLT ESTIMATE MEAN PLATELET VOLUME (test code=MPV) 10.5 fL 7.0-9.0 LYMPHOCYTE % (test code=LY%) % 14.0-32.0 MANUAL DIFF REQUIRED (test code=MDIFF) COMMENTS: Daily while in [id number] 05:57:00* Test Item Value Reference Range Comments AMMONIA (test code=AMM) 46 umol/L 0-35 [id number] 03:58:00* Test Item Value Reference Range Comments AMMONIA (test code=AMM) 28 umol/L 0-35 ICE,INFORMED RN SHEREEN HICKS TO SEND GREEN TOP ON ICE.BY G.LAB.KDPBASIC METABOLIC [id number] 03:51:00* Test Item Value Reference Range Comments SODIUM (test code=NA) 140 mEq/L 134-147 POTASSIUM (test code=K) 3.8 mEq/L 3.4-5.0 CHLORIDE (test code=CL) 107 mEq/L 100-108 CARBON DIOXIDE (test code=CO2) 27 mEq/L 21-33 ANION GAP (test code=GAP) 10 0-20 GLUCOSE (test code=GLU) 102 mg/dL 70-110 BLOOD UREA NITROGEN (test code=BUN) 9 mg/dL 7-18 GLOMERULAR FILTRATION RATE (test code=GFR) 140.9 90-95 Units of measure=ml/min/1.73 m2 CREATININE (test code=CREAT) 0.6 mg/dL 0.6-1.3 CALCIUM (test code=CA) 7.3 mg/dL 8.0-10.5 COMMENTS: Daily while in ICUCBC W/AUTO [id number] 03:34:00* Test Item Value Reference Range Comments WHITE BLOOD CELL (test code=WBC) 2.78 x10 3/uL 4.5-11.0 RED BLOOD CELL (test code=RBC) 3.18 x10 6/uL 4.00-5.60 HEMOGLOBIN (test code=HGB) 9.5 g/dL 12.5-16.9 HEMATOCRIT (test code=HCT) 28.2 % 37.5-50.7 MEAN CELL VOLUME (test code=MCV) 88.7 fL 81.0-99.0 MEAN CELL HGB (test code=MCH) 29.9 pg 27.0-33.0 MEAN CELL HGB CONCETRATION (test code=MCHC) 33.7 g/dL 33.0-37.0 RED CELL DISTRIBUTION WIDTH CV (test code=RDW) 15.2 % 11.5-14.5 RED CELL DISTRIBUTION WIDTH SD (test code=RDW-SD) 47.3 fL 37.0-54.0 PLATELET COUNT (test code=PLT) 58 x10 3/uL 150-400 IMMATURE PLATELET FRACTION (test code=IPF) 1.7 % 0.9-11.2 MEAN PLATELET VOLUME (test code=MPV) 10.0 fL 7.0-9.0 NEUTROPHIL % (test code=NT%) 49.3 % 56.0-77.0 IMMATURE GRANULOCYTE % (test code=IG%) 1.1 % 0.0-2.0 LYMPHOCYTE % (test code=LY%) 30.2 % 14.0-32.0 MONOCYTE % (test code=MO%) 16.9 % 4.8-9.0 EOSINOPHIL % (test code=EO%) 1.8 % 0.3-3.7 BASOPHIL % (test code=BA%) 0.7 % 0.0-2.0 NUCLEATED RBC % (test code=NRBC%) 1.4 % 0-0 NEUTROPHIL # (test code=NT#) 1.37 x10 3/uL 2.0-7.6 IMMATURE GRANULOCYTE # (test code=IG#) 0.03 x10 3/uL 0.00-0.03 LYMPHOCYTE # (test code=LY#) 0.84 x10 3/uL 1.0-3.8 MONOCYTE # (test code=MO#) 0.47 x10 3/uL 0.1-0.8 EOSINOPHIL # (test code=EO#) 0.05 x10 3/uL 0.0-0.2 BASOPHIL # (test code=BA#) 0.02 x10 3/uL 0.0-0.2 NUCLEATED RBC # (test code=NRBC#) 0.04 x10 3/uL 0.0-0.1 MANUAL DIFF REQUIRED (test code=MDIFF) NO COMMENTS: Daily while in ICUPROTHROMBIN [id number] 18:16:00* Test Item Value Reference Range Comments PROTHROMBIN TIME PATIENT (test code=PTP) 20.1 SECONDS 9.3-12.9 INTERNATIONAL NORMAL RATIO (test code=INR) 1.8 0.8-1.2 TARGET INR BY INDICATION Indication INR1. Prophylaxis of venous thrombosis 2.0 - 3.0 (orthopedic surgery), Prophylaxis of venous thrombosis (other than high-risk surgery), Treatment of Deep Vein Thrombosis/Pulmonary Embolism, Prevention of systemic embolism - Tissue heart valves, Acute Myocardial Infarction (to prevent systemic embolism), Valvular heart disease, Atrial Fibrillation, Bileaflet mechanical valve in aortic position.2. Mechanical prosthetic valves (high risk), 2.5 - 3.5 Presence of Lupus Anticoagulant or Antiphospholipid Antibodies, Prevention of systemic embolism - Acute Myocardial Infarction (to prevent recurrent infarct). THROMBOPLASTIN TIME [id number] 18:16:00* Test Item Value Reference Range Comments THROMBOPLASTIN TIME PARTIAL (test code=PTT) 39.1 Seconds 25.0-39.5 Therapeutic Range: 50.4 - 88.3 Seconds Effective 12/27/2018 - US ABDOMEN [id number] 15:30:00 Name: ISAK BEAN [facility] : 1965 Age/S: 54 / M [address] [place] [address] Unit #: [id number] Loc: [place] [address] Phys: aYz Rodriguez MD Acct: [id number] Dis Date: Status: ADM IN PHONE #: [phone] Exam Date: 02/14/2019 1522 FAX #: [phone] Reason: ascites EXAMS: CPT CODE: [id number] US ABDOMEN LTD 13043 Limited abdominal ultrasound HISTORY: Ascites. Comparison made to CT abdomen dated 02/11/19. FINDINGS: There is trace perihepatic ascites. Insufficient volume for paracentesis, which was not performed. IMPRESSION: Trace perihepatic ascites. SL:01 at 1530 Reported and signed by: Larry Hester M.D. CC: Annmarie Jaquez MD; Yaz Rodriguez MD Technologist: Salma Marrero Trnscb Date/Time: 02/14/2019 (153) tFCO Orig Print D/T: S: 02/14/2019 (1532) Probe: PAGE 1 Signed Report CBC W/AUTO DIFF 2019-02-14 10:41:00* Test Item Value Reference Range Comments WHITE BLOOD CELL (test code=WBC) 2.02 x10 3/uL 4.5-11.0 RED BLOOD CELL (test code=RBC) 3.22 x10 6/uL 4.00-5.60 HEMOGLOBIN (test code=HGB) 9.7 g/dL 12.5-16.9 HEMATOCRIT (test code=HCT) 29.2 % 37.5-50.7 MEAN CELL VOLUME (test code=MCV) 90.7 fL 81.0-99.0 MEAN CELL HGB (test code=MCH) 30.1 pg 27.0-33.0 MEAN CELL HGB CONCETRATION (test code=MCHC) 33.2 g/dL 33.0-37.0 RED CELL DISTRIBUTION WIDTH CV (test code=RDW) 15.2 % 11.5-14.5 RED CELL DISTRIBUTION WIDTH SD (test code=RDW-SD) 47.0 fL 37.0-54.0 PLATELET COUNT (test code=PLT) x10 3/uL 150-400 SEE PLT EST. MEAN PLATELET VOLUME (test code=MPV) 10.4 fL 7.0-9.0 NEUTROPHIL % (test code=NT%) 59.8 % 56.0-77.0 IMMATURE GRANULOCYTE % (test code=IG%) 1.0 % 0.0-2.0 LYMPHOCYTE % (test code=LY%) 23.3 % 14.0-32.0 MONOCYTE % (test code=MO%) 13.4 % 4.8-9.0 EOSINOPHIL % (test code=EO%) 2.0 % 0.3-3.7 BASOPHIL % (test code=BA%) 0.5 % 0.0-2.0 NUCLEATED RBC % (test code=NRBC%) 2.0 % 0-0 NEUTROPHIL # (test code=NT#) 1.21 x10 3/uL 2.0-7.6 IMMATURE GRANULOCYTE # (test code=IG#) 0.02 x10 3/uL 0.00-0.03 LYMPHOCYTE # (test code=LY#) 0.47 x10 3/uL 1.0-3.8 MONOCYTE # (test code=MO#) 0.27 x10 3/uL 0.1-0.8 EOSINOPHIL # (test code=EO#) 0.04 x10 3/uL 0.0-0.2 BASOPHIL # (test code=BA#) 0.01 x10 3/uL 0.0-0.2 NUCLEATED RBC # (test code=NRBC#) 0.04 x10 3/uL 0.0-0.1 MANUAL DIFF REQUIRED (test code=MDIFF) NO PLT [id number] 10:41:00* Test Item Value Reference Range Comments PLATELET ESTIMATE (test code=PLTEST) 68-85 THOUSAND ADEQUATE PLATELET MORPHOLOGY (test code=PLTMORPH) GIANT PLATELETS COMPREHENSIVE METABOLIC [id number] 08:30:00* Test Item Value Reference Range Comments SODIUM (test code=NA) 139 mEq/L 134-147 POTASSIUM (test code=K) 3.7 mEq/L 3.4-5.0 CHLORIDE (test code=CL) 111 mEq/L 100-108 CARBON DIOXIDE (test code=CO2) 21 mEq/L 21-33 ANION GAP (test code=GAP) 11 0-20 GLUCOSE (test code=GLU) 83 mg/dL 70-110 BLOOD UREA NITROGEN (test code=BUN) 8 mg/dL 7-18 GLOMERULAR FILTRATION RATE (test code=GFR) 173.9 90-95 Units of measure=ml/min/1.73 m2 CREATININE (test code=CREAT) 0.5 mg/dL 0.6-1.3 TOTAL PROTEIN (test code=PROT) 5.1 g/dL 6.4-8.2 ALBUMIN (test code=ALB) 2.20 g/dL 3.4-5.0 CALCIUM (test code=CA) 7.4 mg/dL 8.0-10.5 BILIRUBIN TOTAL (test code=BILT) 1.60 mg/dL 0.0-1.0 SGOT/AST (test code=AST) 228 IUnit/L 15-37 SGPT/ALT (test code=ALT) 159 IUnit/L 15-65 ALKALINE PHOSPHATASE TOTAL (test code=ALKP) 99 IUnit/L 20-125 CBC W/AUTO [id number] 08:13:00* Test Item Value Reference Range Comments WHITE BLOOD CELL (test code=WBC) 2.02 x10 3/uL 4.5-11.0 RED BLOOD CELL (test code=RBC) 3.22 x10 6/uL 4.00-5.60 HEMOGLOBIN (test code=HGB) 9.7 g/dL 12.5-16.9 HEMATOCRIT (test code=HCT) 29.2 % 37.5-50.7 MEAN CELL VOLUME (test code=MCV) 90.7 fL 81.0-99.0 MEAN CELL HGB (test code=MCH) 30.1 pg 27.0-33.0 MEAN CELL HGB CONCETRATION (test code=MCHC) 33.2 g/dL 33.0-37.0 RED CELL DISTRIBUTION WIDTH CV (test code=RDW) 15.2 % 11.5-14.5 RED CELL DISTRIBUTION WIDTH SD (test code=RDW-SD) 47.0 fL 37.0-54.0 PLATELET COUNT (test code=PLT) x10 3/uL 150-400 SEE PLT EST. MEAN PLATELET VOLUME (test code=MPV) 10.4 fL 7.0-9.0 NEUTROPHIL % (test code=NT%) 59.8 % 56.0-77.0 IMMATURE GRANULOCYTE % (test code=IG%) 1.0 % 0.0-2.0 LYMPHOCYTE % (test code=LY%) 23.3 % 14.0-32.0 MONOCYTE % (test code=MO%) 13.4 % 4.8-9.0 EOSINOPHIL % (test code=EO%) 2.0 % 0.3-3.7 BASOPHIL % (test code=BA%) 0.5 % 0.0-2.0 NUCLEATED RBC % (test code=NRBC%) 2.0 % 0-0 NEUTROPHIL # (test code=NT#) 1.21 x10 3/uL 2.0-7.6 IMMATURE GRANULOCYTE # (test code=IG#) 0.02 x10 3/uL 0.00-0.03 LYMPHOCYTE # (test code=LY#) 0.47 x10 3/uL 1.0-3.8 MONOCYTE # (test code=MO#) 0.27 x10 3/uL 0.1-0.8 EOSINOPHIL # (test code=EO#) 0.04 x10 3/uL 0.0-0.2 BASOPHIL # (test code=BA#) 0.01 x10 3/uL 0.0-0.2 NUCLEATED RBC # (test code=NRBC#) 0.04 x10 3/uL 0.0-0.1 MANUAL DIFF REQUIRED (test code=MDIFF) NO PLT [id number] 08:13:00* Test Item Value Reference Range Comments PLATELET ESTIMATE (test code=PLTEST) THOUSAND ADEQUATE CBC W/AUTO [id number] 08:13:00* Test Item Value Reference Range Comments WHITE BLOOD CELL (test code=WBC) 2.02 x10 3/uL 4.5-11.0 RED BLOOD CELL (test code=RBC) 3.22 x10 6/uL 4.00-5.60 HEMOGLOBIN (test code=HGB) 9.7 g/dL 12.5-16.9 HEMATOCRIT (test code=HCT) 29.2 % 37.5-50.7 MEAN CELL VOLUME (test code=MCV) 90.7 fL 81.0-99.0 MEAN CELL HGB (test code=MCH) 30.1 pg 27.0-33.0 MEAN CELL HGB CONCETRATION (test code=MCHC) 33.2 g/dL 33.0-37.0 RED CELL DISTRIBUTION WIDTH CV (test code=RDW) 15.2 % 11.5-14.5 RED CELL DISTRIBUTION WIDTH SD (test code=RDW-SD) 47.0 fL 37.0-54.0 PLATELET COUNT (test code=PLT) x10 3/uL 150-400 SEE PLT EST. MEAN PLATELET VOLUME (test code=MPV) 10.4 fL 7.0-9.0 NEUTROPHIL % (test code=NT%) 59.8 % 56.0-77.0 IMMATURE GRANULOCYTE % (test code=IG%) 1.0 % 0.0-2.0 LYMPHOCYTE % (test code=LY%) 23.3 % 14.0-32.0 MONOCYTE % (test code=MO%) 13.4 % 4.8-9.0 EOSINOPHIL % (test code=EO%) 2.0 % 0.3-3.7 BASOPHIL % (test code=BA%) 0.5 % 0.0-2.0 NUCLEATED RBC % (test code=NRBC%) 2.0 % 0-0 NEUTROPHIL # (test code=NT#) 1.21 x10 3/uL 2.0-7.6 IMMATURE GRANULOCYTE # (test code=IG#) 0.02 x10 3/uL 0.00-0.03 LYMPHOCYTE # (test code=LY#) 0.47 x10 3/uL 1.0-3.8 MONOCYTE # (test code=MO#) 0.27 x10 3/uL 0.1-0.8 EOSINOPHIL # (test code=EO#) 0.04 x10 3/uL 0.0-0.2 BASOPHIL # (test code=BA#) 0.01 x10 3/uL 0.0-0.2 NUCLEATED RBC # (test code=NRBC#) 0.04 x10 3/uL 0.0-0.1 MANUAL DIFF REQUIRED (test code=MDIFF) NO PLT [id number] 08:13:00* Test Item Value Reference Range Comments PLATELET ESTIMATE (test code=PLTEST) THOUSAND ADEQUATE HGB [id number] 20:16:00* Test Item Value Reference Range Comments HEMOGLOBIN (test code=HGB) 9.1 g/dL 12.5-16.9 HEMATOCRIT (test code=HCT) 26.3 % 37.5-50.7 [id number] 15:14:00* Test Item Value Reference Range Comments AMMONIA (test code=AMM) 74 umol/L 0-35 HGB [id number] 14:59:00* Test Item Value Reference Range Comments HEMOGLOBIN (test code=HGB) 8.5 g/dL 12.5-16.9 HEMATOCRIT (test code=HCT) 25.8 % 37.5-50.7 CBC W/AUTO [id number] 12:02:00* Test Item Value Reference Range Comments WHITE BLOOD CELL (test code=WBC) 2.05 x10 3/uL 4.5-11.0 RED BLOOD CELL (test code=RBC) 2.76 x10 6/uL 4.00-5.60 HEMOGLOBIN (test code=HGB) 8.2 g/dL 12.5-16.9 HEMATOCRIT (test code=HCT) 24.7 % 37.5-50.7 MEAN CELL VOLUME (test code=MCV) 89.5 fL 81.0-99.0 MEAN CELL HGB (test code=MCH) 29.7 pg 27.0-33.0 MEAN CELL HGB CONCETRATION (test code=MCHC) 33.2 g/dL 33.0-37.0 RED CELL DISTRIBUTION WIDTH CV (test code=RDW) 14.8 % 11.5-14.5 RED CELL DISTRIBUTION WIDTH SD (test code=RDW-SD) 47.5 fL 37.0-54.0 PLATELET COUNT (test code=PLT) x10 3/uL 150-400 SEE PLT EST MEAN PLATELET VOLUME (test code=MPV) 10.2 fL 7.0-9.0 NEUTROPHIL % (test code=NT%) 61.9 % 56.0-77.0 IMMATURE GRANULOCYTE % (test code=IG%) 1.0 % 0.0-2.0 LYMPHOCYTE % (test code=LY%) 22.4 % 14.0-32.0 MONOCYTE % (test code=MO%) 11.7 % 4.8-9.0 EOSINOPHIL % (test code=EO%) 2.0 % 0.3-3.7 BASOPHIL % (test code=BA%) 1.0 % 0.0-2.0 NUCLEATED RBC % (test code=NRBC%) 2.0 % 0-0 NEUTROPHIL # (test code=NT#) 1.27 x10 3/uL 2.0-7.6 IMMATURE GRANULOCYTE # (test code=IG#) 0.02 x10 3/uL 0.00-0.03 LYMPHOCYTE # (test code=LY#) 0.46 x10 3/uL 1.0-3.8 MONOCYTE # (test code=MO#) 0.24 x10 3/uL 0.1-0.8 EOSINOPHIL # (test code=EO#) 0.04 x10 3/uL 0.0-0.2 BASOPHIL # (test code=BA#) 0.02 x10 3/uL 0.0-0.2 NUCLEATED RBC # (test code=NRBC#) 0.04 x10 3/uL 0.0-0.1 MANUAL DIFF REQUIRED (test code=MDIFF) NO COMMENTS: Daily while in ICUPLT [id number] 12:02:00* Test Item Value Reference Range Comments PLATELET ESTIMATE (test code=PLTEST) 84-105 THOUSAND ADEQUATE COMMENTS: Daily while in ICUCOMPREHENSIVE METABOLIC [id number] 06:18:00* Test Item Value Reference Range Comments SODIUM (test code=NA) 142 mEq/L 134-147 POTASSIUM (test code=K) 3.7 mEq/L 3.4-5.0 CHLORIDE (test code=CL) 110 mEq/L 100-108 CARBON DIOXIDE (test code=CO2) 27 mEq/L 21-33 ANION GAP (test code=GAP) 9 0-20 GLUCOSE (test code=GLU) 109 mg/dL 70-110 BLOOD UREA NITROGEN (test code=BUN) 9 mg/dL 7-18 GLOMERULAR FILTRATION RATE (test code=GFR) 173.9 90-95 Units of measure=ml/min/1.73 m2 CREATININE (test code=CREAT) 0.5 mg/dL 0.6-1.3 TOTAL PROTEIN (test code=PROT) 4.7 g/dL 6.4-8.2 ALBUMIN (test code=ALB) 2.50 g/dL 3.4-5.0 CALCIUM (test code=CA) 7.7 mg/dL 8.0-10.5 BILIRUBIN TOTAL (test code=BILT) 1.70 mg/dL 0.0-1.0 SGOT/AST (test code=AST) 377 IUnit/L 15-37 SGPT/ALT (test code=ALT) 183 IUnit/L 15-65 ALKALINE PHOSPHATASE TOTAL (test code=ALKP) 98 IUnit/L 20-125 COMMENTS: Daily while in [id number] 06:18:00* Test Item Value Reference Range Comments MAGNESIUM (test code=MAG) 2.00 mg/dL 1.8-2.4 COMMENTS: Daily while in ICUCBC W/AUTO [id number] 06:01:00* Test Item Value Reference Range Comments WHITE BLOOD CELL (test code=WBC) 2.05 x10 3/uL 4.5-11.0 RED BLOOD CELL (test code=RBC) 2.76 x10 6/uL 4.00-5.60 HEMOGLOBIN (test code=HGB) 8.2 g/dL 12.5-16.9 HEMATOCRIT (test code=HCT) 24.7 % 37.5-50.7 MEAN CELL VOLUME (test code=MCV) 89.5 fL 81.0-99.0 MEAN CELL HGB (test code=MCH) 29.7 pg 27.0-33.0 MEAN CELL HGB CONCETRATION (test code=MCHC) 33.2 g/dL 33.0-37.0 RED CELL DISTRIBUTION WIDTH CV (test code=RDW) 14.8 % 11.5-14.5 RED CELL DISTRIBUTION WIDTH SD (test code=RDW-SD) 47.5 fL 37.0-54.0 PLATELET COUNT (test code=PLT) x10 3/uL 150-400 SEE PLT EST MEAN PLATELET VOLUME (test code=MPV) 10.2 fL 7.0-9.0 NEUTROPHIL % (test code=NT%) 61.9 % 56.0-77.0 IMMATURE GRANULOCYTE % (test code=IG%) 1.0 % 0.0-2.0 LYMPHOCYTE % (test code=LY%) 22.4 % 14.0-32.0 MONOCYTE % (test code=MO%) 11.7 % 4.8-9.0 EOSINOPHIL % (test code=EO%) 2.0 % 0.3-3.7 BASOPHIL % (test code=BA%) 1.0 % 0.0-2.0 NUCLEATED RBC % (test code=NRBC%) 2.0 % 0-0 NEUTROPHIL # (test code=NT#) 1.27 x10 3/uL 2.0-7.6 IMMATURE GRANULOCYTE # (test code=IG#) 0.02 x10 3/uL 0.00-0.03 LYMPHOCYTE # (test code=LY#) 0.46 x10 3/uL 1.0-3.8 MONOCYTE # (test code=MO#) 0.24 x10 3/uL 0.1-0.8 EOSINOPHIL # (test code=EO#) 0.04 x10 3/uL 0.0-0.2 BASOPHIL # (test code=BA#) 0.02 x10 3/uL 0.0-0.2 NUCLEATED RBC # (test code=NRBC#) 0.04 x10 3/uL 0.0-0.1 MANUAL DIFF REQUIRED (test code=MDIFF) NO COMMENTS: Daily while in ICUPLT [id number] 06:01:00* Test Item Value Reference Range Comments PLATELET ESTIMATE (test code=PLTEST) THOUSAND ADEQUATE COMMENTS: Daily while in ICUCBC W/AUTO [id number] 06:01:00* Test Item Value Reference Range Comments WHITE BLOOD CELL (test code=WBC) 2.05 x10 3/uL 4.5-11.0 RED BLOOD CELL (test code=RBC) 2.76 x10 6/uL 4.00-5.60 HEMOGLOBIN (test code=HGB) 8.2 g/dL 12.5-16.9 HEMATOCRIT (test code=HCT) 24.7 % 37.5-50.7 MEAN CELL VOLUME (test code=MCV) 89.5 fL 81.0-99.0 MEAN CELL HGB (test code=MCH) 29.7 pg 27.0-33.0 MEAN CELL HGB CONCETRATION (test code=MCHC) 33.2 g/dL 33.0-37.0 RED CELL DISTRIBUTION WIDTH CV (test code=RDW) 14.8 % 11.5-14.5 RED CELL DISTRIBUTION WIDTH SD (test code=RDW-SD) 47.5 fL 37.0-54.0 PLATELET COUNT (test code=PLT) x10 3/uL 150-400 SEE PLT EST MEAN PLATELET VOLUME (test code=MPV) 10.2 fL 7.0-9.0 NEUTROPHIL % (test code=NT%) 61.9 % 56.0-77.0 IMMATURE GRANULOCYTE % (test code=IG%) 1.0 % 0.0-2.0 LYMPHOCYTE % (test code=LY%) 22.4 % 14.0-32.0 MONOCYTE % (test code=MO%) 11.7 % 4.8-9.0 EOSINOPHIL % (test code=EO%) 2.0 % 0.3-3.7 BASOPHIL % (test code=BA%) 1.0 % 0.0-2.0 NUCLEATED RBC % (test code=NRBC%) 2.0 % 0-0 NEUTROPHIL # (test code=NT#) 1.27 x10 3/uL 2.0-7.6 IMMATURE GRANULOCYTE # (test code=IG#) 0.02 x10 3/uL 0.00-0.03 LYMPHOCYTE # (test code=LY#) 0.46 x10 3/uL 1.0-3.8 MONOCYTE # (test code=MO#) 0.24 x10 3/uL 0.1-0.8 EOSINOPHIL # (test code=EO#) 0.04 x10 3/uL 0.0-0.2 BASOPHIL # (test code=BA#) 0.02 x10 3/uL 0.0-0.2 NUCLEATED RBC # (test code=NRBC#) 0.04 x10 3/uL 0.0-0.1 MANUAL DIFF REQUIRED (test code=MDIFF) NO COMMENTS: Daily while in ICUPLT [id number] 06:01:00* Test Item Value Reference Range Comments PLATELET ESTIMATE (test code=PLTEST) THOUSAND ADEQUATE COMMENTS: Daily while in ICUHGB [id number] 23:35:00* Test Item Value Reference Range Comments HEMOGLOBIN (test code=HGB) 8.6 g/dL 12.5-16.9 HEMATOCRIT (test code=HCT) 25.4 % 37.5-50.7 HGB [id number] 17:48:00* Test Item Value Reference Range Comments HEMOGLOBIN (test code=HGB) 9.4 g/dL 12.5-16.9 HEMATOCRIT (test code=HCT) 27.9 % 37.5-50.7 ALPHA FETOPROTEIN TUMOR [id number] 12:07:00* Test Item Value Reference Range Comments ALPHA FETOPROTEIN TUMOR MARKER (test code=AFPTM) 0.9 ng/mL 0.0-8.3 [employer] Electrochemiluminescence Immunoassay(ECLIA)Values obtained with different assay methods or kits cannotbe used interchangeably. Results cannot be interpreted asabsolute evidence of the presence or absence of malignantdisease.This test is not interpretable in females.Performed At: [facility] [id number] [place], [place] [id number] Georges Guerra MD Ph:[phone] CBC W/AUTO [id number] 12:01:00* Test Item Value Reference Range Comments WHITE BLOOD CELL (test code=WBC) 1.50 x10 3/uL 4.5-11.0 RED BLOOD CELL (test code=RBC) 2.05 x10 6/uL 4.00-5.60 HEMOGLOBIN (test code=HGB) 5.9 g/dL 12.5-16.9 HEMATOCRIT (test code=HCT) 18.4 % 37.5-50.7 MEAN CELL VOLUME (test code=MCV) 89.8 fL 81.0-99.0 MEAN CELL HGB (test code=MCH) 28.8 pg 27.0-33.0 MEAN CELL HGB CONCETRATION (test code=MCHC) 32.1 g/dL 33.0-37.0 RED CELL DISTRIBUTION WIDTH CV (test code=RDW) 15.3 % 11.5-14.5 RED CELL DISTRIBUTION WIDTH SD (test code=RDW-SD) 49.8 fL 37.0-54.0 PLATELET COUNT (test code=PLT) x10 3/uL 150-400 SEE PLT EST. MEAN PLATELET VOLUME (test code=MPV) 9.2 fL 7.0-9.0 MANUAL DIFF REQUIRED (test code=MDIFF) YES COMMENTS: Daily while in ICUWBC [id number] 12:01:00* Test Item Value Reference Range Comments SEGMENTED NEUTROPHILS (test code=SEG) 58.0 % 37-69 LYMPHOCYTE (test code=LYMPH) 30.8 % 23-55 MONOCYTE (test code=MON) 7.5 % 0-10 EOSINOPHIL (test code=EOS) 2.8 % 0.0-4.0 BASOPHIL (test code=BASO) 0.9 % 0.0-2.0 NUCLEATED RED BLOOD CELL (test code=NRBC) 0.9 % POLYCHROMASIA (test code=POLC) 1+ POIKILOCYTOSIS (test code=POIK) SLIGHT BASOPHILIC STIPPLING (test code=STP) FEW ANISOCYTOSIS (test code=ANISO) 1+ MICROCYTOSIS (test code=MICR) 1+ PLATELET ESTIMATE (test code=PLTEST) 80-100 THOUSAND ADEQUATE PLATELET MORPHOLOGY (test code=PLTMORPH) LARGE PLATELETS FEW LARGE PLTS SEEN COMMENTS: [facility] [id number] 11:56:00* Test Item Value Reference Range Comments WHITE BLOOD CELL (test code=WBC) 1.50 x10 3/uL 4.5-11.0 RED BLOOD CELL (test code=RBC) 2.05 x10 6/uL 4.00-5.60 HEMOGLOBIN (test code=HGB) 5.9 g/dL 12.5-16.9 HEMATOCRIT (test code=HCT) 18.4 % 37.5-50.7 MEAN CELL VOLUME (test code=MCV) 89.8 fL 81.0-99.0 MEAN CELL HGB (test code=MCH) 28.8 pg 27.0-33.0 MEAN CELL HGB CONCETRATION (test code=MCHC) 32.1 g/dL 33.0-37.0 RED CELL DISTRIBUTION WIDTH CV (test code=RDW) 15.3 % 11.5-14.5 RED CELL DISTRIBUTION WIDTH SD (test code=RDW-SD) 49.8 fL 37.0-54.0 PLATELET COUNT (test code=PLT) x10 3/uL 150-400 SEE PLT EST. MEAN PLATELET VOLUME (test code=MPV) 9.2 fL 7.0-9.0 MANUAL DIFF REQUIRED (test code=MDIFF) YES COMMENTS: Daily while in [facility] [id number] 11:56:00* Test Item Value Reference Range Comments ANISOCYTOSIS (test code=ANISO) PLATELET ESTIMATE (test code=PLTEST) THOUSAND ADEQUATE COMMENTS: Daily while in [facility] W/AUTO [id number] 11:56:00* Test Item Value Reference Range Comments WHITE BLOOD CELL (test code=WBC) 1.50 x10 3/uL 4.5-11.0 RED BLOOD CELL (test code=RBC) 2.05 x10 6/uL 4.00-5.60 HEMOGLOBIN (test code=HGB) 5.9 g/dL 12.5-16.9 HEMATOCRIT (test code=HCT) 18.4 % 37.5-50.7 MEAN CELL VOLUME (test code=MCV) 89.8 fL 81.0-99.0 MEAN CELL HGB (test code=MCH) 28.8 pg 27.0-33.0 MEAN CELL HGB CONCETRATION (test code=MCHC) 32.1 g/dL 33.0-37.0 RED CELL DISTRIBUTION WIDTH CV (test code=RDW) 15.3 % 11.5-14.5 RED CELL DISTRIBUTION WIDTH SD (test code=RDW-SD) 49.8 fL 37.0-54.0 PLATELET COUNT (test code=PLT) x10 3/uL 150-400 SEE PLT EST. MEAN PLATELET VOLUME (test code=MPV) 9.2 fL 7.0-9.0 MANUAL DIFF REQUIRED (test code=MDIFF) YES COMMENTS: Daily while in ICUWBC [id number] 11:56:00* Test Item Value Reference Range Comments ANISOCYTOSIS (test code=ANISO) PLATELET ESTIMATE (test code=PLTEST) THOUSAND ADEQUATE COMMENTS: Daily while in ICUCBC W/AUTO [id number] 07:33:00* Test Item Value Reference Range Comments WHITE BLOOD CELL (test code=WBC) 1.50 x10 3/uL 4.5-11.0 RED BLOOD CELL (test code=RBC) 2.05 x10 6/uL 4.00-5.60 HEMOGLOBIN (test code=HGB) 5.9 g/dL 12.5-16.9 HEMATOCRIT (test code=HCT) 18.4 % 37.5-50.7 MEAN CELL VOLUME (test code=MCV) 89.8 fL 81.0-99.0 MEAN CELL HGB (test code=MCH) 28.8 pg 27.0-33.0 MEAN CELL HGB CONCETRATION (test code=MCHC) 32.1 g/dL 33.0-37.0 RED CELL DISTRIBUTION WIDTH CV (test code=RDW) 15.3 % 11.5-14.5 RED CELL DISTRIBUTION WIDTH SD (test code=RDW-SD) 49.8 fL 37.0-54.0 PLATELET COUNT (test code=PLT) x10 3/uL 150-400 SEE PLT EST. MEAN PLATELET VOLUME (test code=MPV) 9.2 fL 7.0-9.0 LYMPHOCYTE % (test code=LY%) % 14.0-32.0 MANUAL DIFF REQUIRED (test code=MDIFF) COMMENTS: Daily while in [facility] [id number] 07:22:00* Test Item Value Reference Range Comments SODIUM (test code=NA) 144 mEq/L 134-147 POTASSIUM (test code=K) 3.9 mEq/L 3.4-5.0 CHLORIDE (test code=CL) 111 mEq/L 100-108 CARBON DIOXIDE (test code=CO2) 27 mEq/L 21-33 ANION GAP (test code=GAP) 10 0-20 GLUCOSE (test code=GLU) 99 mg/dL 70-110 BLOOD UREA NITROGEN (test code=BUN) 11 mg/dL 7-18 GLOMERULAR FILTRATION RATE (test code=GFR) 173.9 90-95 Units of measure=ml/min/1.73 m2 CREATININE (test code=CREAT) 0.5 mg/dL 0.6-1.3 CALCIUM (test code=CA) 7.3 mg/dL 8.0-10.5 COMMENTS: Daily while in [id number] 07:22:00* Test Item Value Reference Range Comments TROPONIN-I (test code=TROPI) 0.418 ng/mL 0.000-0.045 Negative: <=0.045 Positive: >=0.046 Correlation with serial results, other cardiac markers andclinical findings is necessary to determine the clinicalsignificance of this result. Results using different methodologies should not be comparedto one another as quantitative results may vary by method. COMMENTS: Daily while in ICUPROTHROMBIN [id number] 06:29:00* Test Item Value Reference Range Comments PROTHROMBIN TIME PATIENT (test code=PTP) 14.4 SECONDS 9.3-12.9 INTERNATIONAL NORMAL RATIO (test code=INR) 1.3 0.8-1.2 TARGET INR BY INDICATION Indication INR1. Prophylaxis of venous thrombosis 2.0 - 3.0 (orthopedic surgery), Prophylaxis of venous thrombosis (other than high-risk surgery), Treatment of Deep Vein Thrombosis/Pulmonary Embolism, Prevention of systemic embolism - Tissue heart valves, Acute Myocardial Infarction (to prevent systemic embolism), Valvular heart disease, Atrial Fibrillation, Bileaflet mechanical valve in aortic position.2. Mechanical prosthetic valves (high risk), 2.5 - 3.5 Presence of Lupus Anticoagulant or Antiphospholipid Antibodies, Prevention of systemic embolism - Acute Myocardial Infarction (to prevent recurrent infarct). LIPOPROTEIN [id number] 20:40:00* Test Item Value Reference Range Comments LIPOPROTEIN LDL (test code=LDL) 95 mg/dL 0-100 <100 [id number] NEAR OPTIMAL/ABOVE [id number] HIGH>XR=471 VERY HIGH*Guidelines provided by the National Cholesterol EducationProgram Adult Treatment Panel III [id number] 20:20:00* Test Item Value Reference Range Comments TROPONIN-I (test code=TROPI) 0.347 ng/mL 0.000-0.045 Negative: <=0.045 Positive: >=0.046 Correlation with serial results, other cardiac markers andclinical findings is necessary to determine the clinicalsignificance of this result. Results using different methodologies should not be comparedto one another as quantitative results may vary by method. HGB [id number] 12:35:00* Test Item Value Reference Range Comments HEMOGLOBIN (test code=HGB) 7.7 g/dL 12.5-16.9 HEMATOCRIT (test code=HCT) 22.7 % 37.5-50.7 [id number] 12:11:00* Test Item Value Reference Range Comments AMMONIA (test code=AMM) 43 umol/L 0-35 [id number] 12:11:00* Test Item Value Reference Range Comments TROPONIN-I (test code=TROPI) 0.029 ng/mL 0.000-0.045 Negative: <=0.045 Positive: >=0.046 Correlation with serial results, other cardiac markers andclinical findings is necessary to determine the clinicalsignificance of this result. Results using different methodologies should not be comparedto one another as quantitative results may vary by method. COMMENTS: 3 troponins total (including troponin done in ED)URINALYSIS COMPLETE 2019-02-11 07:03:00* Test Item Value Reference Range Comments UA COLOR (test code=COLU) YELLOW YEL/STRAW UA APPEARANCE (test code=APPU) CLEAR CLEAR UA GLUCOSE DIPSTICK (test code=DGLUU) NEGATIVE NEGATIVE UA BILIRUBIN DIPSTICK (test code=BILU) NEGATIVE NEGATIVE UA KETONE DIPSTICK (test code=KETU) 1+ NEGATIVE UA SPECIFIC GRAVITY (test code=SGU) 1.015 1.005-1.030 UA BLOOD DIPSTICK (test code=MIKAYLA) 1+ NEGATIVE UA PH DIPSTICK (test code=LI) 5.0 5.0-7.0 UA PROTEIN DIPSTICK (test code=PROU) 2+ NEGATIVE UA UROBILINIOGEN DIPSTICK (test code=URO) 0.2 mg/dL 0.2-1.0 UA NITRITE DIPSTICK (test code=ABRAM) NEGATIVE NEGATIVE UA LEUKOCYTE ESTERASE DIPSTICK (test code=LEUU) NEGATIVE NEGATIVE UA WBC (test code=WBCU) WBC/HPF 0-3 UA RBC (test code=RBCU) RBC/HPF 0-3 COMMENTS: Clean CatchURINALYSIS [id number] 07:03:00* Test Item Value Reference Range Comments UA COLOR (test code=COLU) YELLOW YEL/STRAW UA APPEARANCE (test code=APPU) CLEAR CLEAR UA GLUCOSE DIPSTICK (test code=DGLUU) NEGATIVE NEGATIVE UA BILIRUBIN DIPSTICK (test code=BILU) NEGATIVE NEGATIVE UA KETONE DIPSTICK (test code=KETU) 1+ NEGATIVE UA SPECIFIC GRAVITY (test code=SGU) 1.015 1.005-1.030 UA BLOOD DIPSTICK (test code=MIKAYLA) 1+ NEGATIVE UA PH DIPSTICK (test code=LI) 5.0 5.0-7.0 UA PROTEIN DIPSTICK (test code=PROU) 2+ NEGATIVE UA UROBILINIOGEN DIPSTICK (test code=URO) 0.2 mg/dL 0.2-1.0 UA NITRITE DIPSTICK (test code=ABRAM) NEGATIVE NEGATIVE UA LEUKOCYTE ESTERASE DIPSTICK (test code=LEUU) NEGATIVE NEGATIVE UA WBC (test code=WBCU) 0-3 WBC/HPF 0-3 UA RBC (test code=RBCU) 0-3 RBC/HPF 0-3 UA BACTERIA (test code=BACU) TRACE /HPF NONE SEEN UA SQUAMOUS CELLS (test code=SQU) 0-5 /HPF NONE SEEN UA MUCUS (test code=MUCU) TRACE /LPF NONE SEEN COMMENTS: Clean [id number] 05:44:00* Test Item Value Reference Range Comments PHOSPHOROUS (test code=PHOS) 4.3 mg/dL 2.5-4.9 [id number] 05:44:00* Test Item Value Reference Range Comments MAGNESIUM (test code=MAG) 1.70 mg/dL 1.8-2.4 THYROID STIMULATING [id number] 05:44:00* Test Item Value Reference Range Comments THYROID STIMULATING HORMONE (test code=TSH) 1.52 0.42-5.47 Results in farheen-International Units/mL [id number] 05:44:00* Test Item Value Reference Range Comments TROPONIN-I (test code=TROPI) 0.017 ng/mL 0.000-0.045 Negative: <=0.045 Positive: >=0.046 Correlation with serial results, other cardiac markers andclinical findings is necessary to determine the clinicalsignificance of this result. Results using different methodologies should not be comparedto one another as quantitative results may vary by method. - CT ABD PELVIS [id number] 05:36:00 Name: ISAK BEAN [facility] : 1965 Age/S: 54 / M [address] [place] [address] Blvd Unit #: [id number] Loc: [place] [address] Phys: Talon Deras MD Acct: [id number] Dis Date: Status: REG ER PHONE #: [phone] Exam Date: 02/11/2019 0453 FAX #: [phone] Reason: UPPER AND LOWER GI BLEED; ABDOMINAL PAINS/P COL EXAMS: CPT CODE: [id number] CT ABD PELVIS W/CONT [id number] PROCEDURE: CT abdomen and pelvis with contrast dated 02/11/2019 INDICATION: GI bleed. Abdominal pain. Nausea and vomiting. COMPARISON: CT abdomen dated 11/08/2018. TECHNIQUE: A CT of the abdomen pelvis was performed using helical images from the thoracic outlet through the pubic symphysis with subsequent sagittal and coronal reconstruction. IV CONTRAST: 100 cc of Isovue-300 GI CONTRAST: None. CT imaging performed at this location utilizes radiation dose optimization techniques which include one or more of the followin) Automated exposure control; 2) Adjustment of mA and/or kV; 3) Use of iterative reconstructive technique. CT radiation dose DLP (mGy- cm): 299. FINDINGS: SOLID ORGANS: The liver demonstrates diffuse parenchymal heterogeneity with surface lobularity, compatible with cirrhosis. Ill-defined decreased density is identified in the medial segment of the left hepatic lobe that appears new when compared to the preceding CT. The main portal vein appears patent. Low-density filling defects are identified in both the left and right portal veins which may represent bland or tumor thrombus. The spleen is markedly enlarged (20 cm). This finding combined with recanalization of the paraumbilical vein likely indicate portal hypertension. The spleen appears to enhance homogeneously. No CT abnormalities of the pancreas, ad renal glands or kidneys are identified. There is no CT evidence of acute renal collecting system obstruction or calcified renal collecting system stone. BILIARY: The gallbladder is normally distended. No si gnificant biliary ductal dilatation is identified. BOWEL: Jc wel assessment is limited by the absence of bowel contrast. No gross abno rmalities of the stomach or duodenum are identified. No small bowel dilat ation is present to suggest obstruction. No findings concerning for appen dicitis are noted. A metallic clip is noted to project in the lumen of th e cecum. No diverticular disease is identified. The portions of the colo n that are sufficiently distended for wall assessment demonstrate no signi ficant inflammatory wall PAGE 1 Signed Report (CONTINUED) Name: ISAK BEAN [facility] : 1965 Age/S: 54 / M [address] [place] [address] B lvd Unit #: [id number] Loc: [place] [address] Phys: Talon Deras MD Acct: [id number] Dis Date: Status: REG ER PHONE #: [phone] Exam Date: 02/11/2019 0453 FAX #: [phone] Reason: UPPER AND LOWER GI BLEED; ABDOMINAL PAINS/P COL EXAMS: CPT CODE: [id number] CT ABD PELVIS W/CONT 41743 < Continued> thickening. PERITONEUM: There is no evidence of free intraperitoneal air. A small volume of free intraperitoneal fluid is identified adjacent to the liver and spleen. RETROPERITONEUM: The abdominal aorta is normal in caliber. Several enlarged retroperitoneal lymph nodes are again identified and appear stable. PELVIS: The bladder has an unremarkable appearance. LOWER CHEST: The lung bases appear clear of acute disease. ADDITIONAL FINDINGS: A fluid containing ventral hernia is identified just above the umbilicus. IMPRESSION: 1. Cirrhosis of the liver with portal hypertension, marked splenomegaly and small volume ascites. 2. Ill-defined decreased density is identified in the medial segment of the left lobe of the liver that appears new when compared to the prior CT of 11/08/2018. While nonspecific, infiltrating hepatocellular carcinoma would be included in the differential diagnosis. 3. Low-density filling defects are identified in the left and right portal veins which may represent bland or tumor thrombus. SL: 131 at 0536 Reported and signed by: Jamshid Valerio M.D. CC: Talon Deras MD Technologist:Yani Streeter RT(R)(CT) CTDI: DLP: Trnscb Date/Time: 02/11/2019 (0536) t.SORIN Orig Print D/T: S: 02/11/2019 (0516) PAGE 2 Signed Report PROTHROMBIN [id number] 05:30:00* Test Item Value Reference Range Comments PROTHROMBIN TIME PATIENT (test code=PTP) 20.2 SECONDS 9.3-12.9 INTERNATIONAL NORMAL RATIO (test code=INR) 1.8 0.8-1.2 TARGET INR BY INDICATION Indication INR1. Prophylaxis of venous thrombosis 2.0 - 3.0 (orthopedic surgery), Prophylaxis of venous thrombosis (other than high-risk surgery), Treatment of Deep Vein Thrombosis/Pulmonary Embolism, Prevention of systemic embolism - Tissue heart valves, Acute Myocardial Infarction (to prevent systemic embolism), Valvular heart disease, Atrial Fibrillation, Bileaflet mechanical valve in aortic position.2. Mechanical prosthetic valves (high risk), 2.5 - 3.5 Presence of Lupus Anticoagulant or Antiphospholipid Antibodies, Prevention of systemic embolism - Acute Myocardial Infarction (to prevent recurrent infarct). HEPATIC FUNCTION [id number] 05:01:00* Test Item Value Reference Range Comments TOTAL PROTEIN (test code=PROT) 5.4 g/dL 6.4-8.2 ALBUMIN (test code=ALB) 3.00 g/dL 3.4-5.0 BILIRUBIN TOTAL (test code=BILT) 1.60 mg/dL 0.0-1.0 BILIRUBIN DIRECT (test code=BILD) 0.40 MG/DL 0.0-0.30 BILIRUBIN INDIRECT (test code=BILIND) 1.20 MG/DL SGOT/AST (test code=AST) 157 IUnit/L 15-37 SGPT/ALT (test code=ALT) 89 IUnit/L 15-65 ALKALINE PHOSPHATASE TOTAL (test code=ALKP) 124 IUnit/L 20-125 [id number] 05:01:00* Test Item Value Reference Range Comments LIPASE (test code=LIP) 89 IUnit/L 73-393 CBC W/AUTO [id number] 04:24:00* Test Item Value Reference Range Comments WHITE BLOOD CELL (test code=WBC) 9.59 x10 3/uL 4.5-11.0 RED BLOOD CELL (test code=RBC) 3.53 x10 6/uL 4.00-5.60 HEMOGLOBIN (test code=HGB) 10.3 g/dL 12.5-16.9 HEMATOCRIT (test code=HCT) 30.3 % 37.5-50.7 MEAN CELL VOLUME (test code=MCV) 85.8 fL 81.0-99.0 MEAN CELL HGB (test code=MCH) 29.2 pg 27.0-33.0 MEAN CELL HGB CONCETRATION (test code=MCHC) 34.0 g/dL 33.0-37.0 RED CELL DISTRIBUTION WIDTH CV (test code=RDW) 15.4 % 11.5-14.5 RED CELL DISTRIBUTION WIDTH SD (test code=RDW-SD) 47.5 fL 37.0-54.0 PLATELET COUNT (test code=PLT) 136 x10 3/uL 150-400 MEAN PLATELET VOLUME (test code=MPV) 9.2 fL 7.0-9.0 NEUTROPHIL % (test code=NT%) 64.1 % 56.0-77.0 IMMATURE GRANULOCYTE % (test code=IG%) 0.6 % 0.0-2.0 LYMPHOCYTE % (test code=LY%) 23.4 % 14.0-32.0 MONOCYTE % (test code=MO%) 9.6 % 4.8-9.0 EOSINOPHIL % (test code=EO%) 1.8 % 0.3-3.7 BASOPHIL % (test code=BA%) 0.5 % 0.0-2.0 NUCLEATED RBC % (test code=NRBC%) 0.3 % 0-0 NEUTROPHIL # (test code=NT#) 6.15 x10 3/uL 2.0-7.6 IMMATURE GRANULOCYTE # (test code=IG#) 0.06 x10 3/uL 0.00-0.03 LYMPHOCYTE # (test code=LY#) 2.24 x10 3/uL 1.0-3.8 MONOCYTE # (test code=MO#) 0.92 x10 3/uL 0.1-0.8 EOSINOPHIL # (test code=EO#) 0.17 x10 3/uL 0.0-0.2 BASOPHIL # (test code=BA#) 0.05 x10 3/uL 0.0-0.2 NUCLEATED RBC # (test code=NRBC#) 0.03 x10 3/uL 0.0-0.1 MANUAL DIFF REQUIRED (test code=MDIFF) NO CHEMISTRY 8 [id number] 04:19:00* Test Item Value Reference Range Comments ISTAT-SODIUM (test code=NAP) MMOL/L 134-147 ISTAT-POTASSIUM (test code=KP) MMOL/L 3.4-5.0 ISTAT-CHLORIDE (test code=CLP) MMOL/L 100-108 ISTAT CARBON DIOXIDE (test code=ISTAT-CO2) mmol/L 21-33 ISTAT CALCIUM IONIZED (test code=ISTAT-STEVEN) MG/DL 1.12-1.32 ISTAT-GLUCOSE (test code=GLUP) MG/DL 70-110 ISTAT-BUN (test code=BUNP) MG/DL 7-18 BEDSIDE CREATININE (test code=CREATBED) MG/DL 0.6-1.3 GLOMERULAR FILTRATION RATE POC (test code=GFRBED) 239 ML/MIN CHEMISTRY 8 [id number] 04:19:00* Test Item Value Reference Range Comments ISTAT-SODIUM (test code=NAP) 143 MMOL/L 134-147 ISTAT-POTASSIUM (test code=KP) 3.2 MMOL/L 3.4-5.0 ISTAT-CHLORIDE (test code=CLP) 107 MMOL/L 100-108 Performed by certified cylinder press operator helper at [facility] ISTAT CARBON DIOXIDE (test code=ISTAT-CO2) 21.0 mmol/L 21-33 ISTAT CALCIUM IONIZED (test code=ISTAT-STEVEN) 1.02 MG/DL 1.12-1.32 ISTAT-GLUCOSE (test code=GLUP) 115 MG/DL 70-110 ISTAT-BUN (test code=BUNP) 18 MG/DL 7-18 BEDSIDE CREATININE (test code=CREATBED) 0.4 MG/DL 0.6-1.3 GLOMERULAR FILTRATION RATE POC (test code=GFRBED) 239 ML/MIN CBC W/AUTO [id number] 14:51:00* Test Item Value Reference Range Comments WHITE BLOOD CELL (test code=WBC) 2.27 x10 3/uL 4.5-11.0 RED BLOOD CELL (test code=RBC) 4.14 x10 6/uL 4.00-5.60 HEMOGLOBIN (test code=HGB) 12.3 g/dL 12.5-16.9 HEMATOCRIT (test code=HCT) 37.5 % 37.5-50.7 MEAN CELL VOLUME (test code=MCV) 90.6 fL 81.0-99.0 MEAN CELL HGB (test code=MCH) 29.7 pg 27.0-33.0 MEAN CELL HGB CONCETRATION (test code=MCHC) 32.8 g/dL 33.0-37.0 RED CELL DISTRIBUTION WIDTH CV (test code=RDW) 14.8 % 11.5-14.5 RED CELL DISTRIBUTION WIDTH SD (test code=RDW-SD) 49.1 fL 37.0-54.0 PLATELET COUNT (test code=PLT) x10 3/uL 150-400 SEE PLT EST MEAN PLATELET VOLUME (test code=MPV) 9.8 fL 7.0-9.0 NEUTROPHIL % (test code=NT%) 60.5 % 56.0-77.0 IMMATURE GRANULOCYTE % (test code=IG%) 0.4 % 0.0-2.0 LYMPHOCYTE % (test code=LY%) 25.1 % 14.0-32.0 MONOCYTE % (test code=MO%) 10.1 % 4.8-9.0 EOSINOPHIL % (test code=EO%) 3.5 % 0.3-3.7 BASOPHIL % (test code=BA%) 0.4 % 0.0-2.0 NUCLEATED RBC % (test code=NRBC%) 0.0 % 0-0 NEUTROPHIL # (test code=NT#) 1.37 x10 3/uL 2.0-7.6 IMMATURE GRANULOCYTE # (test code=IG#) 0.01 x10 3/uL 0.00-0.03 LYMPHOCYTE # (test code=LY#) 0.57 x10 3/uL 1.0-3.8 MONOCYTE # (test code=MO#) 0.23 x10 3/uL 0.1-0.8 EOSINOPHIL # (test code=EO#) 0.08 x10 3/uL 0.0-0.2 BASOPHIL # (test code=BA#) 0.01 x10 3/uL 0.0-0.2 NUCLEATED RBC # (test code=NRBC#) 0.00 x10 3/uL 0.0-0.1 MANUAL DIFF REQUIRED (test code=MDIFF) NO PLT [id number] 14:51:00* Test Item Value Reference Range Comments PLATELET ESTIMATE (test code=PLTEST) 72-90 THOUSAND ADEQUATE PLATELET MORPHOLOGY (test code=PLTMORPH) LARGE PLATELETS CBC W/AUTO [id number] 14:48:00* Test Item Value Reference Range Comments WHITE BLOOD CELL (test code=WBC) 2.27 x10 3/uL 4.5-11.0 RED BLOOD CELL (test code=RBC) 4.14 x10 6/uL 4.00-5.60 HEMOGLOBIN (test code=HGB) 12.3 g/dL 12.5-16.9 HEMATOCRIT (test code=HCT) 37.5 % 37.5-50.7 MEAN CELL VOLUME (test code=MCV) 90.6 fL 81.0-99.0 MEAN CELL HGB (test code=MCH) 29.7 pg 27.0-33.0 MEAN CELL HGB CONCETRATION (test code=MCHC) 32.8 g/dL 33.0-37.0 RED CELL DISTRIBUTION WIDTH CV (test code=RDW) 14.8 % 11.5-14.5 RED CELL DISTRIBUTION WIDTH SD (test code=RDW-SD) 49.1 fL 37.0-54.0 PLATELET COUNT (test code=PLT) x10 3/uL 150-400 SEE PLT EST MEAN PLATELET VOLUME (test code=MPV) 9.8 fL 7.0-9.0 NEUTROPHIL % (test code=NT%) 60.5 % 56.0-77.0 IMMATURE GRANULOCYTE % (test code=IG%) 0.4 % 0.0-2.0 LYMPHOCYTE % (test code=LY%) 25.1 % 14.0-32.0 MONOCYTE % (test code=MO%) 10.1 % 4.8-9.0 EOSINOPHIL % (test code=EO%) 3.5 % 0.3-3.7 BASOPHIL % (test code=BA%) 0.4 % 0.0-2.0 NUCLEATED RBC % (test code=NRBC%) 0.0 % 0-0 NEUTROPHIL # (test code=NT#) 1.37 x10 3/uL 2.0-7.6 IMMATURE GRANULOCYTE # (test code=IG#) 0.01 x10 3/uL 0.00-0.03 LYMPHOCYTE # (test code=LY#) 0.57 x10 3/uL 1.0-3.8 MONOCYTE # (test code=MO#) 0.23 x10 3/uL 0.1-0.8 EOSINOPHIL # (test code=EO#) 0.08 x10 3/uL 0.0-0.2 BASOPHIL # (test code=BA#) 0.01 x10 3/uL 0.0-0.2 NUCLEATED RBC # (test code=NRBC#) 0.00 x10 3/uL 0.0-0.1 MANUAL DIFF REQUIRED (test code=MDIFF) NO PLT [id number] 14:48:00* Test Item Value Reference Range Comments PLATELET ESTIMATE (test code=PLTEST) THOUSAND ADEQUATE - XR CHEST 2 [id number] 09:50:00 FAX: Horace Reis MD [phone] [place]: St: PRE FAX: Jovi Edward MD [phone] FAX: Eliseo Garsia [facility] [phone] Name: ISAK BEAN [facility] : 1965 Age/S: 54/M [address] [place] [address] Blvd Unit #: [id number] Loc: [place] [address] Phys: Eliseo Garsia MURPHY Acct: [id number] Dis Date: Status: PRE SDC PH ONE #: [phone] Exam Date: 02/09/2019 0941 FAX #: [phone] Reason: CIRRHOSIS EXAMS: CPT CODE: [id number] XR CHEST 2 V 50488 CLINICAL HISTO RY: CIRRHOSIS COMPARISON: November 30, 2018. PA and lat eral films of the chest demonstrate that heart size is normal. Lung field s are clear. No evidence of pneumonia or congestive failure is seen. Reg ional skeletal structures are within normal limits. IMPRES JOSE: No evidence of pneumonia or congestive failure is seen. Electr onically Signed by Robert Patel on 02/09/2019 at 0950 Reported and signed by: Minor Patel M.D. CC: Luisa Arias MD; Jovi Elizabeth MD; Eliseo Garsia Technologist: Antonia jarrett RT(R) Trnscrd Date/Time/By: 02/09/2019 (9679) : By: Joanna Orig Print D/T: S: 02/09/2019 (0953) PAGE 1 Signed Report CBC W/AUTO [id number] 09:40:00* Test Item Value Reference Range Comments WHITE BLOOD CELL (test code=WBC) 2.27 x10 3/uL 4.5-11.0 RED BLOOD CELL (test code=RBC) 4.14 x10 6/uL 4.00-5.60 HEMOGLOBIN (test code=HGB) 12.3 g/dL 12.5-16.9 HEMATOCRIT (test code=HCT) 37.5 % 37.5-50.7 MEAN CELL VOLUME (test code=MCV) 90.6 fL 81.0-99.0 MEAN CELL HGB (test code=MCH) 29.7 pg 27.0-33.0 MEAN CELL HGB CONCETRATION (test code=MCHC) 32.8 g/dL 33.0-37.0 RED CELL DISTRIBUTION WIDTH CV (test code=RDW) 14.8 % 11.5-14.5 RED CELL DISTRIBUTION WIDTH SD (test code=RDW-SD) 49.1 fL 37.0-54.0 PLATELET COUNT (test code=PLT) x10 3/uL 150-400 MEAN PLATELET VOLUME (test code=MPV) 9.8 fL 7.0-9.0 NEUTROPHIL % (test code=NT%) 60.5 % 56.0-77.0 IMMATURE GRANULOCYTE % (test code=IG%) 0.4 % 0.0-2.0 LYMPHOCYTE % (test code=LY%) 25.1 % 14.0-32.0 MONOCYTE % (test code=MO%) 10.1 % 4.8-9.0 EOSINOPHIL % (test code=EO%) 3.5 % 0.3-3.7 BASOPHIL % (test code=BA%) 0.4 % 0.0-2.0 NUCLEATED RBC % (test code=NRBC%) 0.0 % 0-0 NEUTROPHIL # (test code=NT#) 1.37 x10 3/uL 2.0-7.6 IMMATURE GRANULOCYTE # (test code=IG#) 0.01 x10 3/uL 0.00-0.03 LYMPHOCYTE # (test code=LY#) 0.57 x10 3/uL 1.0-3.8 MONOCYTE # (test code=MO#) 0.23 x10 3/uL 0.1-0.8 EOSINOPHIL # (test code=EO#) 0.08 x10 3/uL 0.0-0.2 BASOPHIL # (test code=BA#) 0.01 x10 3/uL 0.0-0.2 NUCLEATED RBC # (test code=NRBC#) 0.00 x10 3/uL 0.0-0.1 MANUAL DIFF REQUIRED (test code=MDIFF) NO PLT [id number] 09:40:00* Test Item Value Reference Range Comments PLATELET ESTIMATE (test code=PLTEST) THOUSAND ADEQUATE CBC W/AUTO [id number] 09:40:00* Test Item Value Reference Range Comments WHITE BLOOD CELL (test code=WBC) 2.27 x10 3/uL 4.5-11.0 RED BLOOD CELL (test code=RBC) 4.14 x10 6/uL 4.00-5.60 HEMOGLOBIN (test code=HGB) 12.3 g/dL 12.5-16.9 HEMATOCRIT (test code=HCT) 37.5 % 37.5-50.7 MEAN CELL VOLUME (test code=MCV) 90.6 fL 81.0-99.0 MEAN CELL HGB (test code=MCH) 29.7 pg 27.0-33.0 MEAN CELL HGB CONCETRATION (test code=MCHC) 32.8 g/dL 33.0-37.0 RED CELL DISTRIBUTION WIDTH CV (test code=RDW) 14.8 % 11.5-14.5 RED CELL DISTRIBUTION WIDTH SD (test code=RDW-SD) 49.1 fL 37.0-54.0 PLATELET COUNT (test code=PLT) x10 3/uL 150-400 MEAN PLATELET VOLUME (test code=MPV) 9.8 fL 7.0-9.0 NEUTROPHIL % (test code=NT%) 60.5 % 56.0-77.0 IMMATURE GRANULOCYTE % (test code=IG%) 0.4 % 0.0-2.0 LYMPHOCYTE % (test code=LY%) 25.1 % 14.0-32.0 MONOCYTE % (test code=MO%) 10.1 % 4.8-9.0 EOSINOPHIL % (test code=EO%) 3.5 % 0.3-3.7 BASOPHIL % (test code=BA%) 0.4 % 0.0-2.0 NUCLEATED RBC % (test code=NRBC%) 0.0 % 0-0 NEUTROPHIL # (test code=NT#) 1.37 x10 3/uL 2.0-7.6 IMMATURE GRANULOCYTE # (test code=IG#) 0.01 x10 3/uL 0.00-0.03 LYMPHOCYTE # (test code=LY#) 0.57 x10 3/uL 1.0-3.8 MONOCYTE # (test code=MO#) 0.23 x10 3/uL 0.1-0.8 EOSINOPHIL # (test code=EO#) 0.08 x10 3/uL 0.0-0.2 BASOPHIL # (test code=BA#) 0.01 x10 3/uL 0.0-0.2 NUCLEATED RBC # (test code=NRBC#) 0.00 x10 3/uL 0.0-0.1 MANUAL DIFF REQUIRED (test code=MDIFF) NO PLT [id number] 09:40:00* Test Item Value Reference Range Comments PLATELET ESTIMATE (test code=PLTEST) THOUSAND ADEQUATE PROTHROMBIN [id number] 09:27:00* Test Item Value Reference Range Comments PROTHROMBIN TIME PATIENT (test code=PTP) 16.3 SECONDS 9.3-12.9 INTERNATIONAL NORMAL RATIO (test code=INR) 1.4 0.8-1.2 TARGET INR BY INDICATION Indication INR1. Prophylaxis of venous thrombosis 2.0 - 3.0 (orthopedic surgery), Prophylaxis of venous thrombosis (other than high-risk surgery), Treatment of Deep Vein Thrombosis/Pulmonary Embolism, Prevention of systemic embolism - Tissue heart valves, Acute Myocardial Infarction (to prevent systemic embolism), Valvular heart disease, Atrial Fibrillation, Bileaflet mechanical valve in aortic position.2. Mechanical prosthetic valves (high risk), 2.5 - 3.5 Presence of Lupus Anticoagulant or Antiphospholipid Antibodies, Prevention of systemic embolism - Acute Myocardial Infarction (to prevent recurrent infarct). THROMBOPLASTIN TIME [id number] 09:27:00* Test Item Value Reference Range Comments THROMBOPLASTIN TIME PARTIAL (test code=PTT) 43.7 Seconds 25.0-39.5 Therapeutic Range: 50.4 - 88.3 Seconds Effective 12/27/2018 BASIC METABOLIC [id number] 08:57:00* Test Item Value Reference Range Comments SODIUM (test code=NA) 140 mEq/L 134-147 POTASSIUM (test code=K) 4.4 mEq/L 3.4-5.0 CHLORIDE (test code=CL) 106 mEq/L 100-108 CARBON DIOXIDE (test code=CO2) 30 mEq/L 21-33 ANION GAP (test code=GAP) 8 0-20 GLUCOSE (test code=GLU) 109 mg/dL 70-110 BLOOD UREA NITROGEN (test code=BUN) 7 mg/dL 7-18 GLOMERULAR FILTRATION RATE (test code=GFR) 118.0 90-95 Units of measure=ml/min/1.73 m2 CREATININE (test code=CREAT) 0.7 mg/dL 0.6-1.3 CALCIUM (test code=CA) 8.3 mg/dL 8.0-10.5 CBC W/AUTO [id number] 14:50:00* Test Item Value Reference Range Comments WHITE BLOOD CELL (test code=WBC) 1.47 x10 3/uL 4.5-11.0 RED BLOOD CELL (test code=RBC) 3.55 x10 6/uL 4.00-5.60 HEMOGLOBIN (test code=HGB) 10.7 g/dL 12.5-16.9 HEMATOCRIT (test code=HCT) 33.1 % 37.5-50.7 MEAN CELL VOLUME (test code=MCV) 93.2 fL 81.0-99.0 MEAN CELL HGB (test code=MCH) 30.1 pg 27.0-33.0 MEAN CELL HGB CONCETRATION (test code=MCHC) 32.3 g/dL 33.0-37.0 RED CELL DISTRIBUTION WIDTH CV (test code=RDW) 14.1 % 11.5-14.5 RED CELL DISTRIBUTION WIDTH SD (test code=RDW-SD) 47.9 fL 37.0-54.0 PLATELET COUNT (test code=PLT) x10 3/uL 150-400 SEE PLT EST MEAN PLATELET VOLUME (test code=MPV) 9.8 fL 7.0-9.0 NEUTROPHIL % (test code=NT%) 53.7 % 56.0-77.0 IMMATURE GRANULOCYTE % (test code=IG%) 0.0 % 0.0-2.0 LYMPHOCYTE % (test code=LY%) 34.0 % 14.0-32.0 MONOCYTE % (test code=MO%) 8.2 % 4.8-9.0 EOSINOPHIL % (test code=EO%) 3.4 % 0.3-3.7 BASOPHIL % (test code=BA%) 0.7 % 0.0-2.0 NUCLEATED RBC % (test code=NRBC%) 0.0 % 0-0 NEUTROPHIL # (test code=NT#) 0.79 x10 3/uL 2.0-7.6 IMMATURE GRANULOCYTE # (test code=IG#) 0.00 x10 3/uL 0.00-0.03 LYMPHOCYTE # (test code=LY#) 0.50 x10 3/uL 1.0-3.8 MONOCYTE # (test code=MO#) 0.12 x10 3/uL 0.1-0.8 EOSINOPHIL # (test code=EO#) 0.05 x10 3/uL 0.0-0.2 BASOPHIL # (test code=BA#) 0.01 x10 3/uL 0.0-0.2 NUCLEATED RBC # (test code=NRBC#) 0.00 x10 3/uL 0.0-0.1 MANUAL DIFF REQUIRED (test code=MDIFF) NO SLIDE REVIEWED, CONSISTENT WITH AUTO DIFF. PLT [id number] 14:50:00* Test Item Value Reference Range Comments PLATELET ESTIMATE (test code=PLTEST) 52-65 THOUSAND ADEQUATE CBC W/AUTO [id number] 14:49:00* Test Item Value Reference Range Comments WHITE BLOOD CELL (test code=WBC) 1.47 x10 3/uL 4.5-11.0 RED BLOOD CELL (test code=RBC) 3.55 x10 6/uL 4.00-5.60 HEMOGLOBIN (test code=HGB) 10.7 g/dL 12.5-16.9 HEMATOCRIT (test code=HCT) 33.1 % 37.5-50.7 MEAN CELL VOLUME (test code=MCV) 93.2 fL 81.0-99.0 MEAN CELL HGB (test code=MCH) 30.1 pg 27.0-33.0 MEAN CELL HGB CONCETRATION (test code=MCHC) 32.3 g/dL 33.0-37.0 RED CELL DISTRIBUTION WIDTH CV (test code=RDW) 14.1 % 11.5-14.5 RED CELL DISTRIBUTION WIDTH SD (test code=RDW-SD) 47.9 fL 37.0-54.0 PLATELET COUNT (test code=PLT) x10 3/uL 150-400 SEE PLT EST MEAN PLATELET VOLUME (test code=MPV) 9.8 fL 7.0-9.0 NEUTROPHIL % (test code=NT%) 53.7 % 56.0-77.0 IMMATURE GRANULOCYTE % (test code=IG%) 0.0 % 0.0-2.0 LYMPHOCYTE % (test code=LY%) 34.0 % 14.0-32.0 MONOCYTE % (test code=MO%) 8.2 % 4.8-9.0 EOSINOPHIL % (test code=EO%) 3.4 % 0.3-3.7 BASOPHIL % (test code=BA%) 0.7 % 0.0-2.0 NUCLEATED RBC % (test code=NRBC%) 0.0 % 0-0 NEUTROPHIL # (test code=NT#) 0.79 x10 3/uL 2.0-7.6 IMMATURE GRANULOCYTE # (test code=IG#) 0.00 x10 3/uL 0.00-0.03 LYMPHOCYTE # (test code=LY#) 0.50 x10 3/uL 1.0-3.8 MONOCYTE # (test code=MO#) 0.12 x10 3/uL 0.1-0.8 EOSINOPHIL # (test code=EO#) 0.05 x10 3/uL 0.0-0.2 BASOPHIL # (test code=BA#) 0.01 x10 3/uL 0.0-0.2 NUCLEATED RBC # (test code=NRBC#) 0.00 x10 3/uL 0.0-0.1 MANUAL DIFF REQUIRED (test code=MDIFF) NO SLIDE REVIEWED, CONSISTENT WITH AUTO DIFF. PLT [id number] 14:49:00* Test Item Value Reference Range Comments PLATELET ESTIMATE (test code=PLTEST) THOUSAND ADEQUATE CBC W/AUTO [id number] 14:49:00* Test Item Value Reference Range Comments WHITE BLOOD CELL (test code=WBC) 1.47 x10 3/uL 4.5-11.0 RED BLOOD CELL (test code=RBC) 3.55 x10 6/uL 4.00-5.60 HEMOGLOBIN (test code=HGB) 10.7 g/dL 12.5-16.9 HEMATOCRIT (test code=HCT) 33.1 % 37.5-50.7 MEAN CELL VOLUME (test code=MCV) 93.2 fL 81.0-99.0 MEAN CELL HGB (test code=MCH) 30.1 pg 27.0-33.0 MEAN CELL HGB CONCETRATION (test code=MCHC) 32.3 g/dL 33.0-37.0 RED CELL DISTRIBUTION WIDTH CV (test code=RDW) 14.1 % 11.5-14.5 RED CELL DISTRIBUTION WIDTH SD (test code=RDW-SD) 47.9 fL 37.0-54.0 PLATELET COUNT (test code=PLT) x10 3/uL 150-400 SEE PLT EST MEAN PLATELET VOLUME (test code=MPV) 9.8 fL 7.0-9.0 NEUTROPHIL % (test code=NT%) 53.7 % 56.0-77.0 IMMATURE GRANULOCYTE % (test code=IG%) 0.0 % 0.0-2.0 LYMPHOCYTE % (test code=LY%) 34.0 % 14.0-32.0 MONOCYTE % (test code=MO%) 8.2 % 4.8-9.0 EOSINOPHIL % (test code=EO%) 3.4 % 0.3-3.7 BASOPHIL % (test code=BA%) 0.7 % 0.0-2.0 NUCLEATED RBC % (test code=NRBC%) 0.0 % 0-0 NEUTROPHIL # (test code=NT#) 0.79 x10 3/uL 2.0-7.6 IMMATURE GRANULOCYTE # (test code=IG#) 0.00 x10 3/uL 0.00-0.03 LYMPHOCYTE # (test code=LY#) 0.50 x10 3/uL 1.0-3.8 MONOCYTE # (test code=MO#) 0.12 x10 3/uL 0.1-0.8 EOSINOPHIL # (test code=EO#) 0.05 x10 3/uL 0.0-0.2 BASOPHIL # (test code=BA#) 0.01 x10 3/uL 0.0-0.2 NUCLEATED RBC # (test code=NRBC#) 0.00 x10 3/uL 0.0-0.1 MANUAL DIFF REQUIRED (test code=MDIFF) NO SLIDE REVIEWED, CONSISTENT WITH AUTO DIFF. PLT [id number] 14:49:00* Test Item Value Reference Range Comments PLATELET ESTIMATE (test code=PLTEST) THOUSAND ADEQUATE BASIC METABOLIC [id number] 13:28:00* Test Item Value Reference Range Comments SODIUM (test code=NA) 140 mEq/L 134-147 POTASSIUM (test code=K) 4.0 mEq/L 3.4-5.0 CHLORIDE (test code=CL) 109 mEq/L 100-108 CARBON DIOXIDE (test code=CO2) 29 mEq/L 21-33 ANION GAP (test code=GAP) 6 0-20 GLUCOSE (test code=GLU) 95 mg/dL 70-110 BLOOD UREA NITROGEN (test code=BUN) 9 mg/dL 7-18 GLOMERULAR FILTRATION RATE (test code=GFR) 141.5 90-95 Units of measure=ml/min/1.73 m2 CREATININE (test code=CREAT) 0.6 mg/dL 0.6-1.3 CALCIUM (test code=CA) 8.3 mg/dL 8.0-10.5 PROTHROMBIN [id number] 13:24:00* Test Item Value Reference Range Comments PROTHROMBIN TIME PATIENT (test code=PTP) 14.2 SECONDS 9.3-12.9 INTERNATIONAL NORMAL RATIO (test code=INR) 1.3 0.8-1.2 TARGET INR BY INDICATION Indication INR1. Prophylaxis of venous thrombosis 2.0 - 3.0 (orthopedic surgery), Prophylaxis of venous thrombosis (other than high-risk surgery), Treatment of Deep Vein Thrombosis/Pulmonary Embolism, Prevention of systemic embolism - Tissue heart valves, Acute Myocardial Infarction (to prevent systemic embolism), Valvular heart disease, Atrial Fibrillation, Bileaflet mechanical valve in aortic position.2. Mechanical prosthetic valves (high risk), 2.5 - 3.5 Presence of Lupus Anticoagulant or Antiphospholipid Antibodies, Prevention of systemic embolism - Acute Myocardial Infarction (to prevent recurrent infarct). THROMBOPLASTIN TIME [id number] 13:24:00* Test Item Value Reference Range Comments THROMBOPLASTIN TIME PARTIAL (test code=PTT) 34.7 Seconds 25.0-39.5 Therapeutic Range: 61.8-83.8 Sec Effective 10/11/2013 CBC W/AUTO [id number] 13:19:00* Test Item Value Reference Range Comments WHITE BLOOD CELL (test code=WBC) 1.47 x10 3/uL 4.5-11.0 RED BLOOD CELL (test code=RBC) 3.55 x10 6/uL 4.00-5.60 HEMOGLOBIN (test code=HGB) 10.7 g/dL 12.5-16.9 HEMATOCRIT (test code=HCT) 33.1 % 37.5-50.7 MEAN CELL VOLUME (test code=MCV) 93.2 fL 81.0-99.0 MEAN CELL HGB (test code=MCH) 30.1 pg 27.0-33.0 MEAN CELL HGB CONCETRATION (test code=MCHC) 32.3 g/dL 33.0-37.0 RED CELL DISTRIBUTION WIDTH CV (test code=RDW) 14.1 % 11.5-14.5 RED CELL DISTRIBUTION WIDTH SD (test code=RDW-SD) 47.9 fL 37.0-54.0 PLATELET COUNT (test code=PLT) x10 3/uL 150-400 SEE PLT EST MEAN PLATELET VOLUME (test code=MPV) 9.8 fL 7.0-9.0 LYMPHOCYTE % (test code=LY%) % 14.0-32.0 MANUAL DIFF REQUIRED (test code=MDIFF) - XR CHEST 2 [id number] 12:34:00 FAX: Horace Reis MD [phone] [place]: St: PRE FAX: Jovi Edward MD [phone] FAX: Sara Almonte Name: ISAK BEAN [facility] : 1965 Age/S: 53/M [address] [place] [address] Unit #: [id number] Loc: [place] [address] Phys: Sara Almonte INSURANCE ASSOCIATE Acct: [id number] Dis Date: Status: PRE SDC PH ONE #: [phone] Exam Date: 11/30/2018 1226 FAX #: [phone] Reason: ADVANCED CIRRHOSIS/UMBILICAL HERNIA/PRE PROCEDU EXAMS: CPT CODE: [id number] XR CHEST 2 V 95375 PROCEDURE: [facility] TWO VIEW INDICATION: ADVANCED CIRRHOSIS/UMBILICAL HERNIA/PRE P ROCEDURE COMPARISON: November 2015 FINDINGS: The lungs are clear. No pleural abnormality. The cardiomediastinal silhouette is normal. The trachea is midline. Chronic healed right rib fractures. No acute skeletal abnormality. IMPRESSION: No acute radiographic ab normality. SL: [id number] El ectronically Signed by Robert Sin on 11/30 at 1234 Reported and signed by: Peña Sin M.D. CC: Horace Arias MD; Jovi Elizabeth MD; Sara Almonte NP Technologist: RT Delano(R) Trnscrd Date/Time/By: 11/30/2018 (1233) : By: [email or web address] Orig Pr int D/T: S: 11/30/2018 (7003) PAGE 1 Signed Report - CT ABD PELVIS [id number] 16:18:00 Name: ISAK BEAN [facility] : 1965 Age/S: 53 / M [address] [place] [address] Unit #: [id number] Loc: [place] [address] Phys: Horace Arias MD Acct: [id number] Dis Date: Status: REG CLI PHONE #: [phone] Exam Date: 11/08/2018 1409 FAX #: [phone] Reason: K42.9 UMB HERNIA EXAMS: CPT CODE: [id number] CT ABD PELVIS W/CONT 97968 CT ABDOMEN AND PELVIS WITH CONTRAST AND MULTIPLANAR REFORMATS 11/08/2018. INDICATION: Umbilical hernia. COMPARISON: None relevant. TECHNIQUE: Helical imaging was performed diaphragm through the symphysis with axial and coronal reformations obtained. IV CONTRAST: 100 mL Isovue-300. GI CONTRAST: 10 mL Gastrografin diluted in water. RSM=174.4 mGy-cm FINDINGS: LOWER CHEST: Clear lung bases with old granulomatous disease. No pleural or pericardial effusion. No adenopathy. SOLID ORGANS: Markedly enlarged spleen measuring 24.5 cm in craniocaudal dimension with very prominent, redundant splenic vein measuring up to 3.2 cm in maximum diameter (compared to 2.5 cm IVC diameter). Patent, albeit prominent main portal vein. The liver measures 11.7 cm in craniocaudal dimension at the midclavicular line with mild diffuse hypodensity and mild surface contour nodularity likely reflecting cirrhosis. The gallbladder, pancreas, adrenal glands and kidneys show no gross focal abnormality other than partial right renal displacement by the enlarged spleen. BOWEL: Nonobstructive bowel gas pattern without pneumatosis or portal venous air. Negative appendix. No signs of diverticulitis. Normal caliber small bowel. PERITONEUM: No free intraperitoneal fluid or air. Multiple prominent splenic hilar lymph nodes measuring up to 14 mm in short axis. RETROPERITONEUM: Scattered mildly prominent aortocaval/pericaval lymph nodes measuring up to 13 mm in short axis diameter. Moderate aortoiliac calcification without aneurysm. PELVIS: No pelvic adenopathy, mass or free fluid. Unremarkable bladder. No inguinal hernia or adenopathy. Mild presacral/pelvic wall edema, of indeterminate significance. MUSCULOSKELETAL: Severe degenerative disc disease at L5-S1 with moderate to severe lumbosacral facet arthrosis. Superior endplate Schmorl node is noted at L2. Unfused versus chronically fractured PAGE 1 Signed Report (CONTINUED) Name: ISAK BEAN [facility] : 1965 Age/S: 53 / M [address] [place] [address] Unit #: [id number] Loc: [place] [address] Phys: Horace Arias MD Acct: [id number] Dis Date: Status: REG CLI PHONE #: [phone] Exam Date: 11/08/2018 1409 FAX #: [phone] Reason: K42.9 UMB HERNIA EXAMS: CPT CODE: [id number] CT ABD PELVIS W/CONT 91963 <Continued> right L4 transverse process. IMPRESSION: 1. Cirrhotic, fatty-replaced liver with patent, albeit prominent splenoportal venous system. No enhancing lesion. 2. Marked splenomegaly with prominent splenic venous drainage and mild splenic hilum/retroperitoneal adenopathy. This may be reactive or neoplastic. 3. Atherosclerosis. ____ CT imaging performed at this location utilizes radiation dose optimization techniques which include one or more of the following: - Automated exposure control -Adjustment of the mA and/or kV according to patient size -Use of iterative reconstruction technique SL: [id number] at 1618 Reported and signed by: Kj Zendejas M.D. CC: Horace Arias MD; Jovi Elizabeth MD Technologist:Kristian Worley, RT(R)(CT) CTDI: DLP: Trnscb Date/Time: 11/08/2018 (9076) [email or web address] Orig Print D/T: S: 11/08/2018 (3154) CTDI: DLP: PAGE 2 Signed Report
[2019-03-28 05:09] LABS: BASOPHILS % 0.6 % (0.0-1.0); EOSINOPHILS # (AUTO) 0.1 (0.0-0.4); EOSINOPHILS % 2.1 % (0.0-6.0); HEMATOCRIT 32.8 % (38.2-49.6); HEMOGLOBIN 10.4 g/dL (14.0-18.0); LYMPHOCYTES # (AUTO) 0.6 (1.0-3.2); LYMPHOCYTES % 18.7 % (18.0-39.1); MEAN CORPUSCULAR HEMOGLOBIN 26.3 pg (28-32); MEAN CORPUSCULAR HGB CONC 31.7 g/dL (31-35); MONOCYTES # (AUTO) 0.4 (0.2-0.8); NEUTROPHILS # (AUTO) 2.3 (2.1-6.9); PLATELET COUNT 98 x10e3/uL (140-360); RED BLOOD COUNT 3.95 x10e6/uL (4.3-5.7); RED CELL DISTRIBUTION WIDTH 15.2 % (11.7-14.4)
[2019-03-28 05:11] LABS: INR 1.28; PROTHROMBIN TIME 16.6 seconds (11.9-14.5)
[2019-03-28 05:12] LABS: PARTIAL THROMBOPLASTIN TIME 45.6 seconds (23.8-35.5)
[2019-03-28 05:20] LABS: AMYLASE 24 U/L (25-125); LIPASE 24 U/L (8-78)
[2019-03-28 05:22] LABS: ALANINE AMINOTRANSFERASE 203 IU/L (0-55); ALBUMIN 3.3 g/dL (3.5-5.0); ALBUMIN/GLOBULIN RATIO 1.1 (0.8-2.0); ALKALINE PHOSPHATASE 206 IU/L (40-150); ANION GAP 14.6 mmol/L (8-16); BLOOD UREA NITROGEN 10 mg/dL (7-26); BUN/CREATININE RATIO 16 (6-25); CALCIUM 8.8 mg/dL (8.4-10.2); CARBON DIOXIDE 25 mmol/L (22-29); CHLORIDE 99 mmol/L (98-107); CREATININE, SERUM 0.63 mg/dL (0.72-1.25); EST GLOMERULAR FILTRATION RATE > 60 ML/MIN (60-); GLUCOSE 105 mg/dL (74-118); POTASSIUM 3.6 mmol/L (3.5-5.1); SODIUM 135 mmol/L (136-145)
[2019-03-28] MEDS ORDERED: PANTOPRAZOLE 40 MG 10ML VIAL IV STA (05:40)
[2019-03-28] MEDS ORDERED: SODIUM CHLORIDE 0.9% 50ML 50 ML ONE (05:58)
[2019-03-28] MEDS ORDERED: IOPAMIDOL 370 MG/ML 200 ML INFUS..BTL INJ ONE (05:59)
--- NOTE | 2019-03-28 06:59 | Diagnostic Imaging Report ---
EXAM: CT of the abdomen and pelvis WITH contrast HISTORY: Abdominal pain, history of cirrhosis, epigastric pain COMPARISON: None. TECHNIQUE: The abdomen and pelvis were scanned utilizing a multidetector helical scanner. Coronal and sagittal reformats are provided. PROTOCOL: Routine IV CONTRAST: 100 cc of Isovue-370. ORAL CONTRAST: Water RADIATION DOSE: Total DLP: 548.98 mGy*cm Estimated effective dose: (DLP x 0.015 x size factor) Dose modulation, iterative reconstruction, and/or weight based adjustment of the mA/kV was utilized to reduce the radiation dose to as low as reasonably achievable. COMPLICATIONS: None FINDINGS: LOWER THORAX: Two subcentimeter calcified granulomas within the right lower lobe. Trace left effusion. HEPATOBILIARY: Nodular contour with heterogeneous density of the right lobe greater than the left lobe. A 1.9 cm fluid density near the dome of the right lobe, compatible with a cyst. The gallbladder is contracted with prominent nonspecific wall edema. Branching hypodensities within the central liver. SPLEEN: Severely enlarged spleen, 24 cm. PANCREAS: No focal masses or ductal dilatation. Diffuse parenchymal atrophy. ADRENALS: No discrete adrenal nodule. KIDNEYS/URETERS: No hydronephrosis, stones, or definite solid mass lesions. A too small to characterize hypodensity within the left kidney, statistically most likely small cyst. PELVIC ORGANS/BLADDER: The urinary bladder is partially decompressed, which limits the evaluation. GI TRACT: The stomach is decompressed, which limits evaluation. Mild nonspecific duodenal wall edema. No focal inflammatory changes about the cecum. PERITONEUM / RETROPERITONEUM: Small volume low density ascites. Diffuse mesenteric fat stranding and small lymph nodes. LYMPH NODES: No pathologically enlarged lymph node. VESSELS: Diffuse scattered atherosclerotic vascular calcifications. Prominent valentine-splenic varices. Enlarged main portal vein, up to 3.1 cm in diameter. Branching hypodensity within the right hepatic vein. Probable branching more subtle hypodensities within the left portal vein and branches, biliary dilation appears less likely. BONES: No aggressive osseous lesion or acute fracture. Chronic appearing superior endplate central compression deformity of L2. SOFT TISSUES: A small fluid containing supraumbilical hernia. IMPRESSION: 1. Multifocal portal vein thrombus. If warranted, ultrasound evaluation may provide further characterization regarding the extent of the thrombus burden. 2. Cirrhosis with portal hypertension, marked splenomegaly, ascites, nonspecific gallbladder and bowel wall thickening. Discussed with Dr. Galarza via phone on March 28, 2019 at 0655. Signed by: Dr. Celestino Monroy D.O., M.M.M. on 03/28/2019 6:56 AM
--- NOTE | 2019-03-28 07:00 | NUR ---
walking rounds with justin walton
[2019-03-28] MEDS ORDERED: SODIUM CHLORIDE 0.9% 500ML 500 ML IV STA (07:29)
[2019-03-28] MEDS ORDERED: DIPHENHYDRAMINE HCL INJ 50 MG/ML VIAL IV PRN (07:30)
--- NOTE | 2019-03-28 07:39 | NUR ---
LAB CALLED TO DRAW BLOOD CULTURES
--- NOTE | 2019-03-28 07:51 | NUR ---
LAB AT BEDSIDE DRAWING BLOOD CULTURES AND AMMONIA
[2019-03-28] MEDS: TRAMADOL HCL 50 MG TAB PO PRN (08:13)
[2019-03-28] MEDS: CEFTRIAXONE SOD 1 GRAM/0.9% SOD CHL 50ML BAG IV SCH (08:13)
[2019-03-28] MEDS: LACTATED RINGER'S 1,000 ML IV SCH ×2 (08:13→20:49)
--- NOTE | 2019-03-28 08:22 | Diagnostic Imaging Report ---
EXAMINATION: CHEST SINGLE (PORTABLE) INDICATION: Pleuritic chest pain COMPARISON: CT abdomen pelvis of 03/28/2019 FINDINGS: TUBES and LINES: None. LUNGS: The lung volumes are normal. No focal consolidation or pulmonary edema. PLEURA: No pleural effusion or pneumothorax. HEART AND MEDIASTINUM: The cardiomediastinal silhouette is normal in size and contour. BONES AND SOFT TISSUES: No acute fracture or dislocation. UPPER ABDOMEN: No free air under the diaphragm. IMPRESSION: No focal pneumonia or pulmonary edema. Signed by: Shelly Wagner MD on 03/28/2019 8:19 AM
--- NOTE | 2019-03-28 08:36 | NUR ---
MARYANN West TO SENT TECH TO TRANSPORT PATIENT
--- NOTE | 2019-03-28 09:05 | NUR ---
Recvd patient from ER, AAOx3, c/o severe pain on abdomen, call placed Dr Sebastian strange recvd, patient denies any SOB or Chest pain, no distress noted, call light in reach
[2019-03-28] MEDS: MORPHINE SULFATE INJ 4 MG/ML INJ 1ML IV PRN ×3 (09:20→21:20)
[2019-03-28 10:15] VITALS: BP 131/61
[2019-03-28 11:20] VITALS: BP 131/61
--- NOTE | 2019-03-28 13:50 | NUR ---
Visit made by the Spiritual Care Department Pastoral Visitor, Mara Orta. PV provided pastoral presence, prayer, hospitality, and supportive listening. Pastoral Visitor informed pt/family of the scope of [employer] and availability. ANGY HUNT Small Machine Bindery Operator Spiritual Care Department O: [phone] Pager: [phone] ([phone] calling from)
[2019-03-28 15:34] VITALS: BP 119/61
--- NOTE | 2019-03-28 16:11 | Diagnostic Imaging Report ---
EXAM: US ABDOMEN LIMITED DATE: 03/28/2019 12:00 AM INDICATION: Abdominal pain, fever COMPARISON: CT abdomen pelvis of 03/28/2019 TECHNIQUE: Transverse and longitudinal mulligan scale and sonographic images of the left upper quadrant, right upper quadrant, right lower quadrant and left lower quadrant were obtained. FINDINGS: Sonographic evaluation of all 4 quadrants of the abdomen demonstrates no significant free fluid. No safe window was seen for paracentesis. Nodular liver surface contour consistent with cirrhosis. IMPRESSION: Insufficient free fluid for paracentesis. Liver cirrhosis. Signed by: Shelly Wagner MD on 03/28/2019 4:08 PM
[2019-03-28 19:18] VITALS: BP 137/72
[2019-03-28 19:46] LABS: ALANINE AMINOTRANSFERASE 170 IU/L (0-55); ALKALINE PHOSPHATASE 184 IU/L (40-150); ANION GAP 14.5 mmol/L (8-16); BLOOD UREA NITROGEN 10 mg/dL (7-26); BUN/CREATININE RATIO 16 (6-25); CALCIUM 8.7 mg/dL (8.4-10.2); CARBON DIOXIDE 24 mmol/L (22-29); CHLORIDE 101 mmol/L (98-107); CREATININE, SERUM 0.61 mg/dL (0.72-1.25); EST GLOMERULAR FILTRATION RATE > 60 ML/MIN (60-); GLUCOSE 104 mg/dL (74-118); POTASSIUM 3.5 mmol/L (3.5-5.1); SODIUM 136 mmol/L (136-145)
[2019-03-28] MEDS: ONDANSETRON HCL INJ 2MG/ML 2ML 2 MG/ML VIAL IV PRN (20:28)
[2019-03-28] MEDS ORDERED: ZOLPIDEM TARTRATE 5 MG TAB PO PRN (21:00)
--- NOTE | 2019-03-28 22:18 | History and Physical ---
A 54-year-old male comes in with abdominal pain. HISTORY OF PRESENTING ILLNESS: Mr. Beltran, who is a 54-year-old gentleman with a history of hepatitis C, history of portal vein thrombosis, history of ascites, was in usual state of health three days prior to admission the patient started to have fever and chills. Fever was greater is 100.7 degrees. The patient did have some abdominal pain for three days and came into the emergency room with fever and possible ascites and acute bacterial peritonitis. PAST MEDICAL HISTORY: History of cirrhosis of the liver, history of CAD, history of hypertension, history of hyperlipidemia and history of chronic pain and history of reflux esophagitis, and history of portal vein thrombosis. MEDICATIONS: That he takes include Zolpidem, takes lactulose. The patient takes also tramadol for pain control. No cardiac medications noted by the patient. PAST SURGICAL HISTORY: History of repair of jaw and history of angioplasty by doctor at [facility]. The patient apparently had a main LAD blockage with 99% blockage. SOCIAL HISTORY: No EtOH. No IV drug abuse. The patient has a history of hepatitis C, which has been treated by Dr. Karen Sheriff. REVIEW OF SYSTEMS: Negative for chest pain. Positive for shortness of breath. Positive for some nausea. No vomiting. No diarrhea. No hematochezia. No hematemesis. Positive for jaundice and icterus. The patient also has some headache. No diplopia. No blurry vision. ALLERGIES: NO DRUG ALLERGIES. PHYSICAL EXAMINATION: VITAL SIGNS: Temperature is 97.3, T-max is 98.9, pulse of 85, respirations of 21, blood pressure is 119/61. HEENT: Normocephalic, atraumatic. The patient has icterus. CVS: S1, S2 normal, regular rhythm. ABDOMEN: Distended. No fluid or thrill present. EXTREMITIES: No clubbing, no cyanosis, no edema. Changes of ascites and hepatitis seen throughout the body. The patient's lower extremity has trace edema and vascular changes present too. LABORATORY VALUES: Initial sodium was 135, potassium 3.6, BUN of 10, creatinine 0.63. Total bilirubin is 3.1, AST 126, ALT 203, alkaline phosphate 206, amylase 24, lipase 242. Hematology; white count 3.37, hemoglobin of 10.4, hematocrit of 32.8, platelet counts 98. The patient's coags PT of 16.6, INR of 1.2 with a PTT of 45.6. MICROBIOLOGY: Blood cultures are pending. IMAGING STUDIES: Abdominal CT shows multifocal portal vein thrombosis, and cirrhosis with portal vein hypertension, marked splenomegaly, ascites and nonspecific gallbladder and bowel wall thickening. Chest x-ray shows no focal pneumonia, pulmonary edema, and abdominal ultrasound done later showed insufficient free fluid for paracentesis. Liver with cirrhosis. ASSESSMENT: A 54-year-old gentleman with: 1. Portal vein thrombosis. 2. Ascites. 3. Cirrhosis of the liver. 4. CAD. 5. Liver failure. PLAN: GI consult has been done, awaiting it. The patient has been put on Rocephin 1 g q.24 hours for possible SBP. The patient will continue with this. I am going order ammonia level. Lactulose has been given. The patient will be given morphine for pain control. The patient will discuss the case with Dr. John. Further recommendation, per clinical course. MD DOMINICK Lopez/MODL /[id number]
[2019-03-29] VITALS (8 sets, daily range): BP systolic 124–141; BP diastolic 62–71
--- NOTE | 2019-03-29 02:28 | Consultation ---
DATE OF CONSULTATION: 03/28/2019 HISTORY OF PRESENT ILLNESS: This is a 54-year-old, who presented to the hospital because of abdominal pain, mainly it is in the right upper quadrant area. Workup revealed that he has evidence of a multifocal portal vein thrombosis. Has also evidence of cirrhosis or portal hypertension and splenomegaly as well as ascites. He has an ultrasound, which also shows evidence of liver cirrhosis. It is not clear whether this portal vein thrombosis is new. He is anemic with hemoglobin 10.4. There is also coagulopathy. He apparently has a history of GI bleed from varices before. PAST MEDICAL PROBLEM: Significant for liver cirrhosis and with portal hypertension. History of hepatitis C. History of GI bleed. ALLERGIES: NONE. FAMILY HISTORY: Contributory. REVIEW OF SYSTEMS: Denies any chest pain or shortness of breath. Denies any dysphagia or odynophagia. Denies any dysuria, hematuria, or any kind of syncopal episode. PHYSICAL EXAMINATION: GENERAL: The patient is awake, alert, appears to be stable, not in acute distress at this point. VITAL SIGNS: Afebrile currently with stable vital signs. HEAD, EYES, EARS, NOSE, AND THROAT: Normocephalic, atraumatic. Sclerae are mildly icteric. NECK: Supple. HEART: Regular. LUNGS: Clear. ABDOMEN: Soft. There is tenderness in the upper quadrant area. There is no rebound or mass. EXTREMITIES: No cyanosis. No clubbing. LAB VALUES: WBC of 3.37, hemoglobin 10.4, hematocrit 32.8, platelet count of 98,000. Total bilirubin of 3.1 on admission. AST 126, ALT of 203, alkaline phosphatase is 206. CAT scan shows cirrhosis, stable from thrombosis. IMPRESSION: 1. Abdominal pain, probably from acute portal vein thrombosis. 2. Cirrhosis. 3. Portal hypertension. 4. Pancytopenia. RECOMMENDATION: Continue current care at this point. Consult Hematology for portal vein thrombosis. At this point, he can have clear liquid diet. MD CHRISTY Daly/MODL /[id number] cc: David Cortes MD
[2019-03-29] MEDS: MORPHINE SULFATE INJ 4 MG/ML INJ 1ML IV PRN ×3 (03:36→20:41)
[2019-03-29 05:53] LABS: BASOPHILS % 1.1 % (0.0-1.0); EOSINOPHILS # (AUTO) 0.1 (0.0-0.4); EOSINOPHILS % 2.9 % (0.0-6.0); HEMATOCRIT 28.5 % (38.2-49.6); HEMOGLOBIN 8.9 g/dL (14.0-18.0); LYMPHOCYTES # (AUTO) 0.6 (1.0-3.2); LYMPHOCYTES % 22.1 % (18.0-39.1); MEAN CORPUSCULAR HEMOGLOBIN 26.3 pg (28-32); MEAN CORPUSCULAR HGB CONC 31.2 g/dL (31-35); MEAN CORPUSCULAR VOLUME 84.1 fL (81-99); MONOCYTES # (AUTO) 0.4 (0.2-0.8); MONOCYTES % 13.4 % (4.4-11.3); NEUTROPHILS # (AUTO) 1.7 (2.1-6.9); NEUTROPHILS % 60.1 % (38.7-80.0); PLATELET COUNT 88 x10e3/uL (140-360); RED BLOOD COUNT 3.39 x10e6/uL (4.3-5.7); RED CELL DISTRIBUTION WIDTH 15.3 % (11.7-14.4)
--- NOTE | 2019-03-29 06:04 | NUR ---
Called and talked to Dr. Cortes, note written to call attending after 2L bolus LR. Dr. Cortes said to stop fluids.
[2019-03-29 06:17] LABS: ALANINE AMINOTRANSFERASE 149 IU/L (0-55); ALBUMIN 2.7 g/dL (3.5-5.0); ALKALINE PHOSPHATASE 166 IU/L (40-150); ANION GAP 12.7 mmol/L (8-16); BLOOD UREA NITROGEN 9 mg/dL (7-26); BUN/CREATININE RATIO 16 (6-25); CALCIUM 8.4 mg/dL (8.4-10.2); CARBON DIOXIDE 24 mmol/L (22-29); CHLORIDE 102 mmol/L (98-107); CREATININE, SERUM 0.57 mg/dL (0.72-1.25); EST GLOMERULAR FILTRATION RATE > 60 ML/MIN (60-); GLUCOSE 91 mg/dL (74-118); POTASSIUM 3.7 mmol/L (3.5-5.1); SODIUM 135 mmol/L (136-145)
--- NOTE | 2019-03-29 07:16 | Progress Note ---
DATE: 03/29/2019 SUBJECTIVE: The patient is admitted for abdominal pain, portal vein thrombosis and also cirrhosis of the liver with hepatitis and history of pancytopenia. Currently, the patient is feeling better, abdominal pain is better. The patient is breathing better. Yesterday ultrasound showed no collection of fluid to do the paracentesis. OBJECTIVE: VITAL SIGNS: The patient has a temperature of 100.1, T-max of 100.9, blood pressure is 141/66, and pulse oximetry of 93%. HEENT: Normocephalic and atraumatic. The patient is jaundiced. CVS: S1 and S2 normal. Regular rate and rhythm. LUNGS: Decreased air entry. ABDOMEN: Distended. Caput medusae, positive for venous distention. EXTREMITIES: No clubbing. No cyanosis. Positive for vascular changes. LABORATORY VALUES: Today's white count is 2.76 with a hemoglobin of 8.9, hematocrit 28.5, and platelet count was 88, down from 98 yesterday. Chemistries; sodium of 135, potassium is 3.7, BUN of 9, creatinine 0.57, AST 99 down from 106 yesterday, ALT 149, down from 170, and alkaline phosphatase is 166. MICROBIOLOGY: Blood cultures are pending. IMAGING: CT scan did show some ascites and also multifocal portal vein thrombosis. ASSESSMENT: 1. Portal vein thrombosis. 2. Abdominal pain. 3. Cirrhosis. 4. Hepatitis. 5. Hypertension. 6. History suggestive of chronic obstructive pulmonary disease. PLAN: Continue with pain management at this time. The patient is on Rocephin for elevated temperature and monitor his pancytopenia as we go along. A consult with Dr. Pina for pancytopenia and also for portal vein thrombosis has been added. Further recommendation per clinical course. We will continue to monitor the patient and also continue with CBCs and CMPs on a daily basis. MD DOMINICK Lopez/MYRA /[id number]
[2019-03-29] MEDS: CEFTRIAXONE SOD 1 GRAM/0.9% SOD CHL 50ML BAG IV SCH (08:15)
[2019-03-29] MEDS: PANTOPRAZOLE 40 MG 10ML VIAL IV SCH (08:19)
[2019-03-29] MEDS: ONDANSETRON HCL INJ 2MG/ML 2ML 2 MG/ML VIAL IV PRN (09:47)
--- NOTE | 2019-03-29 12:30 | NUR ---
patient was seen sitting in wheelchair being escorted by granddaughter per nursing staff outside of room in the hallway and patient "states he was gonna go outside" upon return patient exhibited increased drowsiness, patient arousable to verbal commands but appears sleepy, will continue to monitor
--- NOTE | 2019-03-29 15:16 | Consultation ---
DATE OF CONSULTATION: 03/29/2019 REQUESTING PHYSICIAN: David Cortes MD. REASON FOR CONSULTATION: Portal vein thrombosis. HISTORY OF PRESENT ILLNESS: Thank you very kindly, Dr. Cortes for letting me participate in the care of this gentleman. He is rather a poor historian. I have reviewed the chart. Discussed the case with Dr. Lyon who is also able to pull old records from [facility] where he was hospitalized last month. He has background of cirrhosis and also is known to have grade 2 varices, which were banded in February of this year at [facility]. He also had a CT scan there which showed evidence of cirrhosis and splenomegaly, but no evidence of portal vein thrombosis. He was admitted with abdominal pain and distention of acute onset a few days back. He has had imaging studies here which revealed besides cirrhosis and splenomegaly, multifocal portal vein thrombosis. I was asked to assess the patient. There is no history of bleeding at present time. Additional details are as recorded in the chart as the patient is not able to provide much of a meaningful history. PHYSICAL EXAMINATION: GENERAL: A chronically ill-looking male, awake, cooperative, but not very clear with recollection of medical history. HEENT: Conjunctivae are little pale. There may be a touch of icterus. There is no palpable peripheral adenopathy. LUNGS: Clinically are clear. ABDOMEN: Markedly distended. Clinically, no definite ascites appreciated. No petechiae noted. LABORATORY DATA: Laboratory evaluation reveals AST of 106, ALT 170, alkaline phosphatase of 184. Bilirubin on admission was 2.5, decreased to 1.9 on followup. Renal function is normal. Hematology assessment reveals leukopenia with count of 2.7, hemoglobin 10.4 on admission and 8.9 on followup. Platelet count was 98,000 on admission, now is 88,000. IMPRESSION: 1. Multifocal portal vein thrombosis, appears new as a CT scan in the February at [facility], did not describe any thrombi. 2. Cirrhosis. Portal hypertension. 3. Splenomegaly. 4. Esophageal varices, grade 2, banded in February. PLAN: In view of the acute nature and symptomatology of pain and abdominal distention and the fact that his varices were grade 2 and banded recently. I would recommend treating the thrombosis with low molecular weight heparin, monitoring his CBC and for other evidence of bleeding. I will discuss the case further with Dr. Cortes. I have already discussed the case with Dr. Lyon. MD RADHA Kemp/MYRA /[id number] cc: Mario Lyon MD
[2019-03-29] MEDS: TRAMADOL HCL 50 MG TAB PO PRN (17:30)
--- NOTE | 2019-03-29 19:15 | NUR ---
Report received from Jimbo RN. Pt resting comfortably in bed at this time. Call light is in reach. Will continue to monitor pt.
[2019-03-29] MEDS: ENOXAPARIN INJ 80 MG/0.8 ML SYR SC SCH (20:42)
--- NOTE | 2019-03-29 20:45 | NUR ---
Pt c/o pain at this time in neck 04/22, pt appears to be agitated. Pt pain medication given as ordered. Pt appears in no distress at this time. Snack provided to patient and pt appears more calm. Pt educated to call nurse for any assistance needed. Bed is in low lock position and call light is in reach of pt. Will continue to monitor.
--- NOTE | 2019-03-29 23:20 | NUR ---
Pt sitting at side of bed in no apparent distress. Pt provided snack at this time. Bed is in low locked position with call light in reach, will continue to monitor pt.
[2019-03-30] VITALS (8 sets, daily range): BP systolic 123–136; BP diastolic 55–72
[2019-03-30] MEDS: MORPHINE SULFATE INJ 4 MG/ML INJ 1ML IV PRN ×4 (03:10→21:23)
[2019-03-30] MEDS: ONDANSETRON HCL INJ 2MG/ML 2ML 2 MG/ML VIAL IV PRN ×2 (05:28→10:29)
[2019-03-30 05:34] LABS: BASOPHILS % 0.9 % (0.0-1.0); EOSINOPHILS # (AUTO) 0.1 (0.0-0.4); EOSINOPHILS % 3.4 % (0.0-6.0); HEMATOCRIT 31.3 % (38.2-49.6); HEMOGLOBIN 9.6 g/dL (14.0-18.0); LYMPHOCYTES # (AUTO) 0.8 (1.0-3.2); LYMPHOCYTES % 26.2 % (18.0-39.1); MEAN CORPUSCULAR HGB CONC 30.7 g/dL (31-35); MEAN CORPUSCULAR VOLUME 84.8 fL (81-99); MONOCYTES # (AUTO) 0.4 (0.2-0.8); MONOCYTES % 12.5 % (4.4-11.3); NEUTROPHILS # (AUTO) 1.8 (2.1-6.9); NEUTROPHILS % 56.1 % (38.7-80.0); PLATELET COUNT 102 x10e3/uL (140-360); RED BLOOD COUNT 3.69 x10e6/uL (4.3-5.7); RED CELL DISTRIBUTION WIDTH 15.4 % (11.7-14.4)
[2019-03-30 05:48] LABS: ALANINE AMINOTRANSFERASE 148 IU/L (0-55); ALKALINE PHOSPHATASE 169 IU/L (40-150); BLOOD UREA NITROGEN 6 mg/dL (7-26); BUN/CREATININE RATIO 10 (6-25); CALCIUM 8.8 mg/dL (8.4-10.2); CARBON DIOXIDE 23 mmol/L (22-29); CHLORIDE 100 mmol/L (98-107); CREATININE, SERUM 0.61 mg/dL (0.72-1.25); EST GLOMERULAR FILTRATION RATE > 60 ML/MIN (60-); GLUCOSE 121 mg/dL (74-118); SODIUM 134 mmol/L (136-145)
[2019-03-30] MEDS: TRAMADOL HCL 50 MG TAB PO PRN (07:30)
[2019-03-30] MEDS: CEFTRIAXONE SOD 1 GRAM/0.9% SOD CHL 50ML BAG IV SCH ×2 (07:30→08:06)
--- NOTE | 2019-03-30 07:30 | NUR ---
Received patient this morning, a/ox3, in bed, call light within reach, no resp distress, c/o abdl pains and medicated per orders, rounds completed and will monitor
--- NOTE | 2019-03-30 07:50 | Progress Note ---
DATE: 03/30/2019 SUBJECTIVE: This patient is here for portal vein thrombosis, history of cirrhosis, history of ascites, history of hypertension, history of coronary artery disease. CURRENT MEDICATIONS: The patient is on ceftriaxone, diphenhydramine as needed, enoxaparin, Lovenox for portal vein thrombosis, morphine sulfate, pantoprazole, tramadol, and zolpidem. Did discuss the case with Dr. Cruz yesterday. OBJECTIVE: VITAL SIGNS: Temperature is 99, T-max of 99.8, pulse of 100, respirations of 20, blood pressure is 132/63, pulse oximetry of 95%. HEENT: Normocephalic and atraumatic. Positive for jaundice and icterus. CVS: S1 and S2 distant. Regular rate and rhythm. ABDOMEN: Distended. Vascular changes. EXTREMITIES: No clubbing. No cyanosis. Possible vascular changes. LABORATORY VALUES: White count of 3.21, hemoglobin of 9.6, hematocrit 31.3. Chemistries: Sodium of 134, potassium 4.0, BUN of 6, creatinine 0.61. ALT 148, AST 106, and total bilirubin is 2.2, total protein of 6. Coags within normal limits when first admitted. IMAGING STUDIES: No imaging studies done yesterday. ASSESSMENT: 1. Portal vein thrombosis. 2. Cirrhosis of the liver. 3. Hypertension. 4. Splenomegaly. 5. History of esophageal varices. 6. History of gastrointestinal bleed with variceal bleed. 7. Fever. 8. Protein-energy malnutrition, severe. PLAN: 1. To have the patient on Lovenox. Monitoring his CBC on a daily basis. We did discuss the case with Dr. Cruz. Plan is to switch him over to Eliquis and antibiotic for five days. Continue with Lovenox. 2. Cirrhosis and portal hypertension. Continue with diuretics and also continue with lactulose for encephalopathy as needed. 3. Splenomegaly. Continue watching esophageal versus, currently stable. No need for banding. GI is on case. Further recommendation and clinical course. Plan is to continue to monitor the patient, CBC and keep in here for 2-3 more days for stability and for observing the total vein thrombosis. David Cortes MD ASJ/MODL /[id number]
[2019-03-30] MEDS: PANTOPRAZOLE 40 MG 10ML VIAL IV SCH (08:06)
[2019-03-30] MEDS: ENOXAPARIN INJ 80 MG/0.8 ML SYR SC SCH ×2 (08:07→20:32)
--- NOTE | 2019-03-30 18:29 | NUR ---
Patient alert and responsive, transferred at this time to room 211 and not in any acute distress at this time, Report given to receiving nurse and patient transferred with belongings.
[2019-03-31] VITALS (8 sets, daily range): BP systolic 123–134; BP diastolic 59–72
[2019-03-31] MEDS: ONDANSETRON HCL INJ 2MG/ML 2ML 2 MG/ML VIAL IV PRN (02:15)
[2019-03-31] MEDS: MORPHINE SULFATE INJ 4 MG/ML INJ 1ML IV PRN ×4 (03:30→21:55)
[2019-03-31 05:27] LABS: EOSINOPHILS # (AUTO) 0.1 (0.0-0.4); EOSINOPHILS % 2.8 % (0.0-6.0); HEMOGLOBIN 9.3 g/dL (14.0-18.0); LYMPHOCYTES # (AUTO) 0.7 (1.0-3.2); LYMPHOCYTES % 25.8 % (18.0-39.1); MEAN CORPUSCULAR HEMOGLOBIN 26.3 pg (28-32); MEAN CORPUSCULAR VOLUME 84.7 fL (81-99); MONOCYTES # (AUTO) 0.4 (0.2-0.8); MONOCYTES % 12.2 % (4.4-11.3); NEUTROPHILS # (AUTO) 1.7 (2.1-6.9); NEUTROPHILS % 57.9 % (38.7-80.0); PLATELET COUNT 105 x10e3/uL (140-360); RED BLOOD COUNT 3.54 x10e6/uL (4.3-5.7); RED CELL DISTRIBUTION WIDTH 15.2 % (11.7-14.4)
[2019-03-31 05:54] LABS: ALANINE AMINOTRANSFERASE 120 IU/L (0-55); ALBUMIN 2.8 g/dL (3.5-5.0); ALKALINE PHOSPHATASE 159 IU/L (40-150); BLOOD UREA NITROGEN 6 mg/dL (7-26); BUN/CREATININE RATIO 10 (6-25); CALCIUM 8.4 mg/dL (8.4-10.2); CARBON DIOXIDE 28 mmol/L (22-29); CHLORIDE 102 mmol/L (98-107); EST GLOMERULAR FILTRATION RATE > 60 ML/MIN (60-); GLUCOSE 122 mg/dL (74-118); SODIUM 137 mmol/L (136-145)
--- NOTE | 2019-03-31 07:00 | NUR ---
BEDSIDE SHIFT REPORT RECEIVED FROM THE MECHATRONICS ENGINEER RN. PT DENIES NEEDS AT THIS TIME.
--- NOTE | 2019-03-31 07:09 | Progress Note ---
DATE: 03/31/2019 HISTORY OF PRESENT ILLNESS: The patient is a 54-year-old gentleman with history of cirrhosis of the liver, portal vein thrombosis, hypertension, history of coronary artery disease, comes in with abdominal pain. The patient is found to have portal vein thrombosis. The patient is currently on low-molecular weight heparin. Continues to be faring better. Did have a discussion with Dr. Martinez. The plan is to keep the patient in for about 2 more days with Lovenox and possible discharge on Wednesday with Eliquis on-board. Currently asymptomatic. Walk around, get short of breath and dyspnea on exertion noted. Positive also for pain, which has been controlled by morphine. MEDICATIONS: He is on Rocephin 1 g, diphenhydramine, enoxaparin, lactulose, morphine sulfate, tramadol as needed, and also pantoprazole. PHYSICAL EXAMINATION: VITAL SIGNS: Temperature is 98.8, last T-max was 99.5 on 03/30 at 2229. The patient's respirations of 18, blood pressure is 123/62. HEENT: Normocephalic, atraumatic. Jaundice present. CVS: S1 and S2 distant. Regular rate and rhythm. ABDOMEN: Distended, soft though, and slight tenderness in the right upper quadrant appreciated. EXTREMITIES: No clubbing. No cyanosis. Positive for edema and also for vascular changes. LABORATORY VALUES: Today's white count is 2.87, hemoglobin of 9.3, hematocrit of 30. Chemistry; sodium 137, potassium of 4, BUN of 6, creatinine of 0.60. ASSESSMENT: 1. Portal vein thrombosis. 2. Cirrhosis of the liver. 3. Hypertension. 4. Splenomegaly. 5. History of esophageal varices. 6. Severe protein-energy malnutrition. PLAN: 1. Continue with Lovenox. Continue monitoring CBC if he bleeds. The patient has been advised to call nursing or other doctors if the patient notices any other bleeding or rectal bleeding. 2. Continue with all current medications. Plan again would be to probably discharge the patient on Wednesday after introducing Eliquis into the regimen. Further recommendation per clinical course. Continue monitoring the patient. On Wednesday, we will do CBC and possible discharge on Wednesday. MD DOMINICK Lopez/MODL /[id number]
[2019-03-31] MEDS: PANTOPRAZOLE 40 MG 10ML VIAL IV SCH (09:13)
[2019-03-31] MEDS: ENOXAPARIN INJ 80 MG/0.8 ML SYR SC SCH ×2 (09:19→21:55)
--- NOTE | 2019-03-31 11:53 | NUR ---
PAGED DR. HERNANDEZ AND LEFT MESSAGE REGARDING PT ABDOMINAL PAIN AND DIET.
[2019-03-31] MEDS: CEFTRIAXONE SOD 1 GM/NS 50 ML 50 ML IV SCH (12:16)
[2019-03-31] MEDS ORDERED: SODIUM CHLORIDE 0.9% 250ML 250 ML ONE (12:23)
--- NOTE | 2019-03-31 15:40 | NUR ---
DR. HERNANDEZ AT BEDSIDE . DIET CHANGED TO LOW SODIUM.
--- NOTE | 2019-03-31 17:14 | NUR ---
DISCUSSED IN BARRIER ROUNDS, [place] ON LOVENOX AND ELOQUIS, SCHEDULED CBC ON WEDNESDAY THEN POSSIBLE DISCHARGE FOLLOWING RESULTS TO DOCTOR.
--- NOTE | 2019-03-31 19:00 | NUR ---
BEDSIDE SHIFT REPORT GIVEN TO THE COURT SECURITY OFFICER RN. PT DENIED FURTHER NEEDS.
--- NOTE | 2019-03-31 19:15 | NUR ---
Patient visited in room during nursing rounds. Patient alert and oriented x3. Abdomen noticeably distended and firm. Pt ambulatory in room prn. Pt experiences intermittent abdominal pain. Pt will be medicated accordingly. Will monitor closely. Call chan within reach.
--- NOTE | 2019-03-31 19:18 | Progress Note ---
DATE: 03/31/2019 SUBJECTIVE: Thank you Dr. Cortes for letting me participate in the care of this gentleman. I reassessed again today. I had seen him a couple of days back and recommended starting on subcutaneous Lovenox for portal vein thrombosis in the background of cirrhosis and splenomegaly. He is feeling better. Still has abdominal pain, but no nausea or diarrhea. He has been tolerating the Lovenox well with no bleeding. PHYSICAL EXAMINATION: GENERAL: He is much more alert, awake, cooperative, sitting up in bed. VITAL SIGNS: As recorded in the chart. He is afebrile. LUNGS: Clear. ABDOMEN: Distended but tympanitic. No evidence of subcutaneous bleeding. LABORATORY DATA: Laboratory evaluation reveals that his platelet count has improved to 105,000. Hematocrit has been relatively stable. ASSESSMENT AND PLAN: I discussed the case with Dr. Cortes previously and recommended switching him to oral Eliquis for at least three months if he tolerates it well monitoring his CBC. Thank you Dr. Cortes for letting me participate in his care. I will be in the background and would be happy to assist if the need arises, kindly let me know, otherwise I do not plan to follow him on a regular basis while he is in the hospital. MD RADHA Kemp/MYRA /[id number]
[2019-03-31] MEDS: LACTULOSE SYRUP 20 GM/30 ML UDC PO PRN (22:18)
[2019-04-01] MEDS: MORPHINE SULFATE INJ 4 MG/ML INJ 1ML IV PRN ×4 (04:16→22:46)
[2019-04-01 04:35] VITALS: BP 128/62
[2019-04-01] MEDS: ONDANSETRON HCL INJ 2MG/ML 2ML 2 MG/ML VIAL IV PRN (06:09)
[2019-04-01] MEDS: PANTOPRAZOLE 40 MG 10ML VIAL IV SCH ×2 (06:12→09:36)
[2019-04-01 07:30] VITALS: BP 135/76
--- NOTE | 2019-04-01 07:30 | NUR ---
PT REC'D AAOX3, ON ROOM AIR, NO S/S OF DISTRESS. RIGHT IV INTACT AND PATENT. SIDE RAILS UP X2, BED IN LOWEST POSITION, AND CALL ALONSO WITHIN REACH.
[2019-04-01 07:44] VITALS: BP 135/76
[2019-04-01] MEDS: ENOXAPARIN INJ 80 MG/0.8 ML SYR SC SCH ×2 (09:41→21:23)
[2019-04-01] MEDS: CEFTRIAXONE SOD 1 GM/NS 50 ML 50 ML IV SCH (12:15)
[2019-04-01 13:08] VITALS: BP 137/77
[2019-04-01 16:12] VITALS: BP 110/66
--- NOTE | 2019-04-01 17:52 | NUR ---
PT IS EATING DINNER, NO S/S OF DISTRESS, BED IN LOWEST POSITION, SIDE RAILS UP X2, AND CALL ALONSO WITHIN REACH.
[2019-04-01 20:09] VITALS: BP 144/80
[2019-04-02] VITALS (7 sets, daily range): BP systolic 113–143; BP diastolic 54–81
[2019-04-02] MEDS: ONDANSETRON HCL INJ 2MG/ML 2ML 2 MG/ML VIAL IV PRN ×3 (04:06→17:20)
[2019-04-02] MEDS: MORPHINE SULFATE INJ 4 MG/ML INJ 1ML IV PRN ×4 (04:16→23:07)
--- NOTE | 2019-04-02 07:30 | NUR ---
REC'D PT AAOX3, SITTING AT THE SIDE OF THE BED, ON ROOM AIR, IV TO RIGHT FA IS INTACT AND PATENT. NO S/S OF DISTRESS. SIDE RAILS UP X2, BED IN LOWEST POSITION, AND CALL ALONSO WITHIN REACH.
[2019-04-02 08:00] LABS: BASOPHILS # (AUTO) 0.1 (0.0-0.1); BASOPHILS % 0.8 % (0.0-1.0); EOSINOPHILS # (AUTO) 0.2 (0.0-0.4); EOSINOPHILS % 3.3 % (0.0-6.0); HEMATOCRIT 29.5 % (38.2-49.6); HEMOGLOBIN 9.1 g/dL (14.0-18.0); LYMPHOCYTES # (AUTO) 1.5 (1.0-3.2); LYMPHOCYTES % 22.8 % (18.0-39.1); MEAN CORPUSCULAR HEMOGLOBIN 25.9 pg (28-32); MEAN CORPUSCULAR HGB CONC 30.8 g/dL (31-35); MONOCYTES # (AUTO) 0.7 (0.2-0.8); MONOCYTES % 10.1 % (4.4-11.3); NEUTROPHILS % 61.3 % (38.7-80.0); PLATELET COUNT 194 x10e3/uL (140-360); RED BLOOD COUNT 3.51 x10e6/uL (4.3-5.7); RED CELL DISTRIBUTION WIDTH 15.9 % (11.7-14.4)
[2019-04-02 08:27] LABS: ALANINE AMINOTRANSFERASE 96 IU/L (0-55); ALBUMIN 2.8 g/dL (3.5-5.0); ALKALINE PHOSPHATASE 161 IU/L (40-150); ANION GAP 13.5 mmol/L (8-16); BLOOD UREA NITROGEN 9 mg/dL (7-26); BUN/CREATININE RATIO 14 (6-25); CALCIUM 8.6 mg/dL (8.4-10.2); CARBON DIOXIDE 25 mmol/L (22-29); CHLORIDE 100 mmol/L (98-107); CREATININE, SERUM 0.65 mg/dL (0.72-1.25); EST GLOMERULAR FILTRATION RATE > 60 ML/MIN (60-); GLUCOSE 155 mg/dL (74-118); POTASSIUM 4.5 mmol/L (3.5-5.1); SODIUM 134 mmol/L (136-145)
[2019-04-02] MEDS: ENOXAPARIN INJ 80 MG/0.8 ML SYR SC SCH ×2 (08:53→20:58)
[2019-04-02] MEDS: CEFTRIAXONE SOD 1 GM/NS 50 ML 50 ML IV SCH (12:17)
--- NOTE | 2019-04-02 18:45 | NUR ---
PT IS LAYING DOWN RESTING WITH EYES OPENED. NO S/S OF DISTRESS. CALL ALONSO WITHIN REACH, SIDE RAILS UP X2, AND BED IN LOWEST POSITION.
[2019-04-02] MEDS: LACTULOSE SYRUP 20 GM/30 ML UDC PO PRN (20:58)
[2019-04-02] MEDS: TRAMADOL HCL 50 MG TAB PO PRN (22:35)
[2019-04-03] VITALS (8 sets, daily range): BP systolic 105–136; BP diastolic 55–79
[2019-04-03] MEDS: ONDANSETRON HCL INJ 2MG/ML 2ML 2 MG/ML VIAL IV PRN ×3 (04:00→21:25)
[2019-04-03] MEDS: MORPHINE SULFATE INJ 4 MG/ML INJ 1ML IV PRN ×2 (05:40→11:30)
--- NOTE | 2019-04-03 07:06 | NUR ---
received pt lying in bed with eyes open, resp even and unlabored. c/o abdominal discomfort and asking for paracentesis. patient assisted into side lying position to assist in pain relief. patient states paracentesis request made to this morning and awaiting now. call light within reach.
--- NOTE | 2019-04-03 07:37 | NUR ---
GAVE REPORT TO ONCOMING NURSE. CALL LIGHT WITHIN REACH. PATIENT IN BED
[2019-04-03] MEDS: ENOXAPARIN INJ 80 MG/0.8 ML SYR SC SCH ×2 (08:56→21:25)
[2019-04-03] MEDS: PANTOPRAZOLE 40 MG 10ML VIAL IV SCH (08:56)
--- NOTE | 2019-04-03 09:00 | Progress Note ---
DATE: 04/03/2019 SUBJECTIVE: The patient is here for portal vein thrombosis. The patient pain is better until yesterday. The patient started to have left upper quadrant pain, which is described as 5/10. The patient is currently on Lovenox. OBJECTIVE: VITAL SIGNS: Temperature is 96.0, pulse of 119, respirations 18, blood pressure is 136/79, and pulse oximetry of 94%. HEENT: Normocephalic and atraumatic. The patient has icterus. CVS: S1 and S2 normal. Regular rate and rhythm. ABDOMEN: Tender in the left upper quadrant. EXTREMITIES: No clubbing. No cyanosis. Positive for trace edema and vascular changes. ASSESSMENT AND PLAN: 1. Portal vein thrombosis. Continue with Lovenox. Continue monitoring CBCs. 2. Cirrhosis of the liver and ascites, another ultrasound to monitor his fluid level. 3. Hypertension, continue with antihypertensive. 4. Splenomegaly. Continue monitoring. 5. History of esophageal varices and also severe protein energy malnutrition. Continue monitoring and check CBCs. MD DOMINICK Lopez/MODL /[id number]
[2019-04-03] MEDS: CEFTRIAXONE SOD 1 GM/NS 50 ML 50 ML IV SCH (11:25)
--- NOTE | 2019-04-03 11:41 | Diagnostic Imaging Report ---
EXAM: Limited abdominal ultrasound. INDICATION: Assessment for ascites COMPARISON: None. TECHNIQUE: Transverse and longitudinal images of the right upper quadrant, left upper quadrant, right lower quadrant, and left lower quadrant were obtained. FINDINGS: Limited sonographic images of the right upper quadrant, right lower quadrant, left upper quadrant, left lower quadrant, and midline demonstrate moderate to large volume ascites. IMPRESSION: Moderate to large volume of abdominal ascites. Signed by: Shelly Wagner MD on 04/03/2019 11:38 AM
--- NOTE | 2019-04-03 14:07 | NUR ---
DISCUSSED IN BARRIER ROUNDS, PT BEING BRIDGED TO TRACY WATCHING FLUID LEVELS TO DETERMINE IF PARACENTESIS IS NEEDED AND PT IS REQUESTING, POSSIBLE DISCHARGE 04/05
[2019-04-03] MEDS ORDERED: MORPHINE SULFATE INJ 4 MG/ML INJ 1ML IV PRN (15:45)
[2019-04-03] MEDS: MORPHINE SULFATE 2 MG/ML SYR 1ML IV PRN ×2 (15:52→20:20)
--- NOTE | 2019-04-03 17:44 | Diagnostic Imaging Report ---
PROCEDURE: Ultrasound-guided diagnostic and therapeutic paracentesis Procedural Personnel Attending physician(s): Shelly Wagner MD Pre-procedure diagnosis: Ascites Post-procedure diagnosis: Same Indication: Ascites with pain or pressure symptoms Additional clinical history: Prior history of abdominal bleeding at outside hospital requiring transfusion. Complications: No immediate complications. IMPRESSION: Ultrasound-guided paracentesis with drainage of 4800 mL of bloody fluid. Plan: Monitor vitals q30m for 2 hours. Resume care by clinical team. PROCEDURE SUMMARY: - Limited abdominal ultrasound - Ultrasound-guided paracentesis - Additional procedure(s): None PROCEDURE DETAILS: Pre-procedure Consent: Informed consent for the procedure including risks, benefits and alternatives was obtained and time-out was performed prior to the procedure. Preparation: The site was prepared and draped using maximal sterile barrier technique including cutaneous antisepsis. Anesthesia/sedation Level of anesthesia/sedation: No sedation Anesthesia/sedation administered by: Not applicable Initial abdominal ultrasound Initial abdominal ultrasound was performed. Findings: Large ascites. A safe window for paracentesis was identified. Paracentesis Local anesthesia was administered. The peritoneal cavity was accessed and fluid return confirmed position. Ascites was drained. The catheter was then removed, and a sterile bandage was applied. Paracentesis access technique: Real-time ultrasound guidance Catheter placed: 5F Yueh Post-drainage ultrasound: Small ascites Additional Details Additional description of procedure: None Equipment details: None Specimens removed: Abdominal fluid Estimated blood loss (mL): Less than 10 Standardized report: [id number] Attestation Signer name: Shelly Wagner MD I attest that I was present for the entire procedure. I reviewed the stored images and agree with the report as written. Signed by: Shelly Wagner MD on 04/03/2019 5:40 PM
--- NOTE | 2019-04-03 18:28 | NUR ---
per radiology report 4800ml removed during paracentesis.
[2019-04-03 20:01] LABS: EOSINOPHILS,BODY FLUID 2 %; LYMPHOCYTES,BODY FLUID 9 %; MONO/MACROPHG,BODY FLUID 4 %; NEUTROPHILS,BODY FLUID 85 %
[2019-04-03 20:19] LABS: BODY FLUID APPEARANCE TURBID; BODY FLUID COLOR RED
[2019-04-03 22:10] LABS: RBC,BODY FLUID 39258 cells/uL; WBC,BODY FLUID 203 cells/uL
[2019-04-04] VITALS (9 sets, daily range): BP systolic 99–126; BP diastolic 52–57
[2019-04-04] MEDS: MORPHINE SULFATE 2 MG/ML SYR 1ML IV PRN ×2 (00:23→04:41)
[2019-04-04] MEDS: ONDANSETRON HCL INJ 2MG/ML 2ML 2 MG/ML VIAL IV PRN ×2 (04:42→22:30)
--- NOTE | 2019-04-04 07:24 | Progress Note ---
DATE: 04/04/2019 SUBJECTIVE: The patient is here for portal vein thrombosis. Did have some paracenteses yesterday. The patient still complains of abdominal pain, which is intractable. Pain is rated as 10/10, could not sleep last night. Continues to have morphine 2 mg every 4 hours and still not any pain controlled. MEDICATIONS: Include Rocephin, diphenhydramine, enoxaparin, furosemide, lactulose, pantoprazole, Aldactone, tramadol, and zolpidem. OBJECTIVE: VITAL SIGNS: Temperature is 97, he has been afebrile, pulse of 118, respirations of 20, blood pressure is 126/57, and pulse ox of 95%. HEENT: Normocephalic and atraumatic. Pupils are reactive to light and accommodation. Pallor is present. CVS: S1 and S2, tachycardic and slight ejection systolic murmur present. ABDOMEN: Distention has come down, still with some fluid thrill. EXTREMITIES: No clubbing. No cyanosis. Positive for trace edema. LABORATORY VALUES: White count 6.44 on . Hemoglobin and hematocrit are pending today. Chemistries are pending today too. MICROBIOLOGY: Blood cultures no growth. The patient's fluid color was red, turbid appearance of fluid. White count is 203, RBCs , and neutrophils 85. ASSESSMENT: 1. Portal vein thrombosis. 2. Hepatic encephalopathy. 3. Cirrhosis of the liver. 4. Hypertension. 5. Splenomegaly. 6. History of esophageal varices. 7. Pain control. For the portal vein thrombosis, I will continue with Lovenox. We will be switching to a NOAC on a later date and is discharge. For cirrhosis of the liver, the patient will continue with diuretics as needed. Hypertension, continue with antihypertensives. Blood pressure is on the lower side today versus continue monitoring of CBC. Anemia. Continue monitoring CBC. DISPOSITION: The patient if continues to be in pain, increase morphine to 4 mg today. SNF evaluation will be ordered. Further recommendation per clinical course. MD DOMINICK Lopez/MODL /[id number]
[2019-04-04 08:06] LABS: ANION GAP 16.5 mmol/L (8-16); CALCIUM 8.5 mg/dL (8.4-10.2); CREATININE, SERUM 1.32 mg/dL (0.72-1.25); POTASSIUM 5.5 mmol/L (3.5-5.1)
[2019-04-04 08:13] LABS: BASOPHILS # (AUTO) 0.1 (0.0-0.1); BASOPHILS % 0.4 % (0.0-1.0); EOSINOPHILS # (AUTO) 0.2 (0.0-0.4); EOSINOPHILS % 1.1 % (0.0-6.0); HEMATOCRIT 18.5 % (38.2-49.6); LYMPHOCYTES # (AUTO) 3.2 (1.0-3.2); LYMPHOCYTES % 23.3 % (18.0-39.1); MEAN CORPUSCULAR HEMOGLOBIN 25.9 pg (28-32); MEAN CORPUSCULAR HGB CONC 31.4 g/dL (31-35); MEAN CORPUSCULAR VOLUME 82.6 fL (81-99); MONOCYTES # (AUTO) 1.5 (0.2-0.8); MONOCYTES % 11.4 % (4.4-11.3); NEUTROPHILS % 59.4 % (38.7-80.0); PLATELET COUNT 251 x10e3/uL (140-360); RED BLOOD COUNT 2.24 x10e6/uL (4.3-5.7); RED CELL DISTRIBUTION WIDTH 16.2 % (11.7-14.4)
[2019-04-04 08:17] LABS: HEMOGLOBIN 5.8 g/dL (14.0-18.0)
[2019-04-04] MEDS: FUROSEMIDE 40 MG TAB PO SCH (08:40)
[2019-04-04] MEDS: MORPHINE SULFATE INJ 4 MG/ML INJ 1ML IV PRN ×4 (08:40→22:30)
[2019-04-04] MEDS: SPIRONOLACTONE 25 MG TAB PO SCH (08:40)
[2019-04-04] MEDS: PANTOPRAZOLE 40 MG 10ML VIAL IV SCH (08:40)
[2019-04-04] MEDS: ENOXAPARIN INJ 80 MG/0.8 ML SYR SC SCH ×2 (09:00→20:36)
[2019-04-04] MEDS ORDERED: FUROSEMIDE INJ 10 MG/ML 2 ML VIAL IV PRN (09:30)
--- NOTE | 2019-04-04 09:36 | NUR ---
A call was placed to Dr. Cortes to report the redraw of cbc and an order was received to transfuse 2 units prbc with lasix between units.
[2019-04-04] MEDS ORDERED: SODIUM CHLORIDE 0.9% 250ML 250 ML IV ONE (09:50)
[2019-04-04 10:43] LABS: LYMPHOCYTES % (MANUAL) 25 % (19-48); MONOCYTES % (MANUAL) 10 % (3.4-9.0); NEUTROPHILS % (MANUAL) 65 % (40-74); NUCLEATED RED BLOOD CELLS 6
[2019-04-04 10:44] LABS: ANISOCYTOSIS SLIGHT; POIKILOCYTOSIS SLIGHT; POLYCHROMASIA MODERATE; RBC MORPHOLOGY COMMENT ABNORMAL
[2019-04-04 10:45] LABS: PLATELET MORPHOLOGY COMMENT FEW LARGE
[2019-04-04 11:00] LABS: TOXIC GRANULATION SLIGHT
[2019-04-04 11:01] LABS: PLATELET ESTIMATE ADEQUATE
--- NOTE | 2019-04-04 11:27 | NUR ---
First of two units of blood initiated and infusing without difficulty.
[2019-04-04] MEDS: CEFTRIAXONE SOD 1 GM/NS 50 ML 50 ML IV SCH (12:00)
--- NOTE | 2019-04-04 12:58 | NUR ---
Blood transfusion in process and the pt's abx held until completion of blood.
--- NOTE | 2019-04-04 15:06 | NUR ---
Second of two units blood infusing at this time temp 99.2 and to pt. denies ill feelings at this time states he feels better.
--- NOTE | 2019-04-04 16:03 | NUR ---
Nutrition Intervention Note RD Recommendation(s) for Physician: -Continue low sodium diet as ordered -Rec Nepro BID to increase protein-calorie intake -The patient meets criteria for unspecified SEVERE protein-calorie malnutrition. Plan of Care: RD following, monitoring for tolerance and adequacy, ONS rec Nutrition reason for involvement: LOS RD Assessment 04/04 - 54yo M, who was admitted for abdominal pain with ascites and fever. Abd US showed moderate to severe ascites. Pt had ultrasound-guided paracentesis on 04/03 with drainage of 4800 mL of bloody fluid. Visited pt in the room. Pt reported poor appetite for more than a month. Per ex-, pt has been eating less than usual for the last couple weeks. Pt denied any nausea or vomiting today. Pt denied any chewing or swallowing difficulty. Pt also reported 10-15lbs weight loss in a month due to poor PO intake. Upon NFPA, pt had moderate muscle and fat loss with severe abdominal distention. K has elevated. RD offered oral nutrition supplement and pt was willing to try. Will continue to monitor and follow. Principal Problems/Diagnoses: 1. Portal vein thrombosis. 2. Hepatic encephalopathy. 3. Cirrhosis of the liver. 4. Hypertension. 5. Splenomegaly. PMH: cirrhosis, CAD, HTN, HLD, chronic pain, reflux esophagitis, portal vein thrombosis, hepatitis C GI: abdomen firm, ascitic Skin: no pressure wound noted Labs: (04/04) Na 130 L, K 5.5 H, BUN 31 H, Creatinine 1.32 H, Glucose 126 H, AST 79 H, ALT 96 H Meds: lovenox, morphine, aldactone, lasix, protonix, zofran Ht: 68in Wt: 166.31lb BMI: 25.3kg/m2 IBW: 154lb +/- 10% Malnutrition Evaluation (04/04/2019) The patient meets criteria for unspecified SEVERE protein-calorie malnutrition. Energy intake: <50% of estimated energy requirements for >1 month Weight loss: >5% in 1 month (Acute) Fat loss: Moderate clavicle protrusion Muscle loss: Moderate temporal depression , slight squaring of shoulder Supporting Evidence: Fluid accumulation: Moderate - Severe ascites Functional Status: reduced Nutrition Prescription (Diet Order): low sodium diet Estimated Nutritional Needs: Calories: 1925 2310kcal(25-30kcal/kg/d) Weight used : IBW Protein: 92 115g(1.2-1.5g/kg/d) Weight used: IBW Diet Adequacy: Not meeting calorie needs, Not meeting protein needs Diet Education Needs Assessment: Diet education indicated, but patient not appropriate for education at this time. Nutrition Care Level: mod Nutrition Diagnosis: Severe malnutrition related to liver cirrhosis and ascites as evidenced by <50% of estimated energy requirements for >1 month, >5% weight loss in 1 month, and moderate fat/ muscle loss. Goal: Patient will meet 75-100% of estimated needs by follow up Progress: Not Progressing Interventions: Modified diet, Commercial beverage Monitoring/Evaluation: Total energy intake, Total protein intake, Modified diet, Liquid supplement, Weight change Signed: Harriett Perez MS, RD, LD
[2019-04-05] VITALS (9 sets, daily range): BP systolic 95–117; BP diastolic 45–55
[2019-04-05] MEDS: MORPHINE SULFATE INJ 4 MG/ML INJ 1ML IV PRN ×5 (04:40→21:43)
[2019-04-05 06:34] LABS: BASOPHILS % 0.2 % (0.0-1.0); EOSINOPHILS # (AUTO) 0.1 (0.0-0.4); EOSINOPHILS % 0.5 % (0.0-6.0); HEMATOCRIT 21.2 % (38.2-49.6); LYMPHOCYTES # (AUTO) 2.4 (1.0-3.2); LYMPHOCYTES % 17.3 % (18.0-39.1); MEAN CORPUSCULAR HEMOGLOBIN 27.1 pg (28-32); MEAN CORPUSCULAR HGB CONC 32.1 g/dL (31-35); MEAN CORPUSCULAR VOLUME 84.5 fL (81-99); MONOCYTES % 14.3 % (4.4-11.3); NEUTROPHILS % 64.9 % (38.7-80.0); PLATELET COUNT 184 x10e3/uL (140-360); RED BLOOD COUNT 2.51 x10e6/uL (4.3-5.7)
[2019-04-05 06:40] LABS: HEMOGLOBIN 6.8 g/dL (14.0-18.0)
[2019-04-05 06:58] LABS: ANION GAP 17.1 mmol/L (8-16); CALCIUM 7.9 mg/dL (8.4-10.2); CREATININE, SERUM 1.47 mg/dL (0.72-1.25)
[2019-04-05 06:59] LABS: ALBUMIN 2.3 g/dL (3.5-5.0); ALBUMIN/GLOBULIN RATIO 1.2 (0.8-2.0)
[2019-04-05 07:07] LABS: POTASSIUM 6.1 mmol/L (3.5-5.1)
--- NOTE | 2019-04-05 07:09 | NUR ---
Dr. Cortes informed of pt lab results, orders received
--- NOTE | 2019-04-05 07:30 | NUR ---
RECEIVED REPORT FROM NIGHT NURSE. DURING ROUNDS, PT LAYING IN BED, WITH VISITOR SLEEPING ON THE COUCH. BED IN LOWEST POSITION, WHEELS OF BED LOCKED, CALL LIGHT WITHIN REACH. PT STATES HE HAS NO FURTHER CONCERNS AT THIS MOMENT, JUST WAITING ON TIME FOR PAIN MEDICATION. PT INFORMED THAT NEXT DOSE OF MEDICATION CAN BE ADMINISTERED AT 8:40 AT THE EARLIEST.
[2019-04-05 07:47] LABS: ANION GAP 15.7 mmol/L (8-16); CALCIUM 7.9 mg/dL (8.4-10.2); CREATININE, SERUM 1.37 mg/dL (0.72-1.25); POTASSIUM 5.7 mmol/L (3.5-5.1)
[2019-04-05 07:49] LABS: % IRON SATURATION 10 % (15-50); IRON 24 ug/dL (65-175); TOTAL IRON BINDING CAPACITY 239 ug/dL (261-478); TRANSFERRIN 171 mg/dL (174-364)
[2019-04-05] MEDS: FUROSEMIDE 40 MG TAB PO SCH (08:37)
[2019-04-05] MEDS: SPIRONOLACTONE 25 MG TAB PO SCH (08:37)
[2019-04-05 08:47] LABS: HYPOCHROMASIA MARKED; LYMPHOCYTES % (MANUAL) 13 % (19-48); MONOCYTES % (MANUAL) 16 % (3.4-9.0); NEUTROPHILS % (MANUAL) 69 % (40-74); PROMYELOCYTES % (MANUAL) 2 % (0-0)
[2019-04-05 08:48] LABS: PLATELET ESTIMATE ADEQUATE; PLATELET MORPHOLOGY COMMENT NORMAL; TEAR DROP CELLS FEW
[2019-04-05] MEDS: ENOXAPARIN INJ 80 MG/0.8 ML SYR SC SCH (08:53)
[2019-04-05] MEDS: ONDANSETRON HCL INJ 2MG/ML 2ML 2 MG/ML VIAL IV PRN ×3 (08:54→21:43)
--- NOTE | 2019-04-05 09:01 | Progress Note ---
DATE: 04/05/2019 SUBJECTIVE: The patient is status post 2 units of PRBCs. The patient's hemoglobin was low yesterday. The patient has no signs of variceal bleeds or rectal bleeding. No melena or melenic stool. The patient is currently fatigued, tired and also in pain from the abdomen. The patient slept. OBJECTIVE: VITAL SIGNS: Temperature is 98.3, T-max is 99.2, on 04/04 at 2100 hours. The patient's pulse of 112, respirations of 21, blood pressure is 103/54, and pulse oximetry of 98%. HEENT: Normocephalic and atraumatic. The patient has icterus. CVS: S1 and S2, tachycardic. Ejection systolic murmur present. ABDOMEN: Distended. EXTREMITIES: Positive for trace edema and positive for dermatitis. LABORATORY VALUES: Today's white count is 13,000, hemoglobin of 6.8, hematocrit 21.2, and platelet count is 184. MICROBIOLOGY: No growth in blood cultures and flu type shows ascites and also positive for white count. Coags are normal; INR is 1.28. The patient's chemistries are pending at this time. ASSESSMENT: 1. Portal vein thrombosis. 2. Hepatic encephalopathy. 3. Cirrhosis of the liver. 4. Hypertension. 5. Blood loss anemia. 6. Splenomegaly. 7. History of esophageal varices. 8. Pain control. 9. Ascites. PLAN: 1. Continue with Lovenox. The patient will need Lovenox. We will continue monitoring his hemoglobin. We will discuss the case with Dr. Lyon. 2. Hypertension, continue on antihypertensive. Be careful with lowering of blood pressure. 3. Anemia. Continue monitoring CBCs, possible transfusions in store. DISPOSITION: The patient is fairly sick and we will have to keep watching his CBC, discharge pending, stability of the patient's CBC and also his white count being up. MD DOMINICK Lopez/MODL /[id number]
[2019-04-05] MEDS: PANTOPRAZOLE 40 MG 10ML VIAL IV SCH (09:09)
[2019-04-05] MEDS: CEFTRIAXONE SOD 1 GM/NS 50 ML 50 ML IV SCH (12:30)
[2019-04-05] MEDS ORDERED: SOD POLYSTYRENE SULFONATE SUSP 15 GM/60 ML BTL PO ONE (13:00)
[2019-04-05] MEDS: LACTULOSE SYRUP 20 GM/30 ML UDC PO PRN (16:33)
--- NOTE | 2019-04-05 17:20 | NUR ---
REPORT GIVEN TO NIGHT RNJAIRO. PT REMINDED THAT PAIN MEDICATION WILL BE DUE AT 9:05PM. PT VERBALIZED UNDERSTANDING
--- NOTE | 2019-04-05 19:10 | NUR ---
Patient visited in room during nursing rounds. Patient alert and oriented x3. Abdomen noticeably distended and soft. Pt ambulatory in room with standby assist prn. Pt experiences frequent abdominal pain. Pt will be medicated accordingly. Will monitor closely. Call chan within reach.
--- NOTE | 2019-04-05 22:32 | NUR ---
Attempted to call Dr. Adan (Pain MD) but received no response. Left voice message to notify new consult and possible order for pain med. Awaiting on MD call back.
--- NOTE | 2019-04-05 22:44 | NUR ---
Called Dr. Cortes to inform pt still c/o of abd pain after receiving last pain med (MS 4mg IV) at 2142. stated ok to give x1 more dose of Morphine 4mg IV and if pain is not relieved, may give pt Dilaudid 1mg IV Q3hr prn.
[2019-04-05] MEDS ORDERED: MORPHINE SULFATE INJ 4 MG/ML INJ 1ML IV ONE (22:45)
[2019-04-05] MEDS ORDERED: HYDROMORPHONE 2MG/ML 2 MG/ML ML IV PRN (22:45)
[2019-04-06] VITALS (10 sets, daily range): BP systolic 63–88; BP diastolic 29–59
[2019-04-06] MEDS ORDERED: SODIUM CHLORIDE 0.9% 1000ML 500 ML IV ONE (00:15)
[2019-04-06] MEDS ORDERED: SODIUM CHLORIDE 0.9% 1000ML 1,000 ML IV SCH (00:15)
--- NOTE | 2019-04-06 00:15 | NUR ---
Called Dr. Cortes for pt having low BP (88/51) with HR of 111. MD aware and suspected pt having too much pain med. ordered to bolus pt with 500ml NS and start pt on IVF (NS at 70ml/hr).
[2019-04-06] MEDS ORDERED: SODIUM CHLORIDE 0.9% 500ML 500 ML ONE (00:24)
--- NOTE | 2019-04-06 01:15 | NUR ---
BP was low (66/59) and tachypneic (24 bpm). Rapid response was called.
--- NOTE | 2019-04-06 01:17 | NUR ---
Rapid response team in room. ER doctor (Dr. Menchaca) at bedside aware of pt situation and medical history. Pt on 2L NC. Respiratory therapist attempting to draw ABGs. ordered Narcan to be given to pt. Pt informed by Dr. Menchaca and ex- (at bedside) the need for intubation. Pt has agreed but appear less coherent than before. BP now 78/41, HR 106.
[2019-04-06] MEDS ORDERED: NALOXONE HCL INJ 0.4 MG/ML AMP ONE (01:37)
[2019-04-06] MEDS ORDERED: MIDAZOLAM HCL 2 MG/2 ML VIAL ONE (01:46)
--- NOTE | 2019-04-06 01:53 | NUR ---
Pt receiving ambubag oxygenation and non-reponsive but breathing and with pulse. Dr. Menchaca about to intubate pt. Pt in trendelenburg position. BP now 77/54, HR 119.
--- NOTE | 2019-04-06 02:01 | NUR ---
Central line (Right IJ) placed. Portable CXR ordered to verify placement. BP now 73/40, HR 115
[2019-04-06] MEDS ORDERED: SODIUM CHLORIDE 0.9% 1000ML 2,000 ML ONE (02:11)
--- NOTE | 2019-04-06 02:12 | NUR ---
Pt resting comfortably intubated and receiving Epinephrine drip at 5mcg/min and Norepinephrine at 30mcg/min via central line.
--- NOTE | 2019-04-06 02:25 | NUR ---
Portable CXR in progress. Test Lead Application Testing informed nurse (Jerzy) that patient will be transferred to 194 (ICU) and receiving ICU nurse is Emanuel. BP now 79/40, HR 112.
--- NOTE | 2019-04-06 02:35 | NUR ---
Pt safely transferred via hospital bed accompanied by ICU Charge nurse (Yamila) and Resp Therapist (Maru) and floor nurse (Jerzy).
--- NOTE | 2019-04-06 02:40 | NUR ---
Verbal bedside report given to Emanuel (ICU nurse) regarding pt information and reason for ICU transfer (rapid response notes included). Ex- of patient aware and located at waiting area.
--- NOTE | 2019-04-06 02:51 | NUR ---
Called Dr. Cortes and informed him that rapid response was called on patient and that patient was transferred to ICU rm 194 in stable condition. MD aware pt currently is intubated and being monitored closely in ICU. aware and ordered to d/c Pon[place].
--- NOTE | 2019-04-06 03:00 | NUR ---
Pt temp 90.7, ER aware, pt placed on jay jay hugger and warming blanket applied. Rectal Temp probe placed, will continue to monitor.
--- NOTE | 2019-04-06 03:00 | NUR ---
Dr. Orantes ( doctor) aware of pt ready for arterial line placement. Addendum: 04/06/19 at 0512 by Emanuel Leiva RN Dr. Casanova
[2019-04-06 03:02] LABS: ALBUMIN 1.9 g/dL (3.5-5.0); ALBUMIN/GLOBULIN RATIO 1.3 (0.8-2.0); ANION GAP 31.7 mmol/L (8-16); POTASSIUM 5.7 mmol/L (3.5-5.1)
--- NOTE | 2019-04-06 03:15 | NUR ---
Lab reported that the labs drawn during the rapid were diluted, was told to redraw. Pt stuck twice to attempt to draw labs. Unsuccessful. Awaiting chest x ray confirmation in order to draw labs from Central line.
[2019-04-06] MEDS ORDERED: EPINEPHRINE HCL 1:1000 1ML 4.8 MG in DEXTROSE 5% 250ML 300 ML IV SCH (03:26)
[2019-04-06 03:29] LABS: CREATININE, SERUM 2.12 mg/dL (0.72-1.25)
[2019-04-06] MEDS ORDERED: NOREPINEPHRINE INJ 4MG/4ML 8 MG in DEXTROSE 5% 250ML 250 ML IV PRN ×2 (03:45→04:00)
--- NOTE | 2019-04-06 03:55 | Diagnostic Imaging Report ---
EXAMINATION: CHEST SINGLE (PORTABLE) INDICATION: ^[id number] ^[id number] ^CENTRAL LINE AND ET TUBE PLACEMENT COMPARISON: 03/28/2019 FINDINGS: AP view TUBES and LINES: Endotracheal tube in place with tip approximately 1.5 cm above jas. Right IJ central line in place with tip projecting over inferior SVC or cavoatrial junction. LUNGS: Low lung volumes. Bilateral airspace opacities. PLEURA: No significant pleural effusion or pneumothorax. HEART AND MEDIASTINUM: The cardiomediastinal silhouette is unremarkable. BONES AND SOFT TISSUES: No acute osseous lesion. Soft tissues are unremarkable. UPPER ABDOMEN: No free air under the diaphragm. IMPRESSION: Status post intubation and right internal jugular central line placement. No visible pneumothorax. Bilateral airspace opacities, representing edema and/or pneumonia. Signed by: Dr. Michael Rosenberg MD on 04/06/2019 3:51 AM
[2019-04-06 04:23] LABS: ABG HCO3 7 mmol/L (23-28); ABG PCO2 26 mmHg (41-51); ABG PH 7.02 (7.31-7.41); ABG PO2 69 mmHg (80-105)
--- NOTE | 2019-04-06 04:25 | NUR ---
Labs drawn from central line and sent to lab.
--- NOTE | 2019-04-06 04:32 | NUR ---
Page out to Dr. Cortes about pt's hypotension with both pressors maxed out.
--- NOTE | 2019-04-06 04:52 | NUR ---
Rapid Response called for BP in the 50s.
--- NOTE | 2019-04-06 04:59 | NUR ---
Verbal order given to Dr. Casanova per pt's family member to make pt DNR status.
[2019-04-06] MEDS ORDERED: VASOPRESSIN INJ 20 UNIT/ML VIAL ONE (05:02)
--- NOTE | 2019-04-06 05:03 | NUR ---
Time of called at 05:03
[2019-04-06] MEDS ORDERED: DEXTROSE 5% 100ML 0 ML IV ONE (05:06)
--- NOTE | 2019-04-06 05:12 | NUR ---
Dr. Cortes returned MD estephania notified of pt's passing.
[2019-04-06 05:20] LABS: BASOPHILS # (AUTO) 0.1 (0.0-0.1); BASOPHILS % 0.4 % (0.0-1.0); EOSINOPHILS # (AUTO) 0.1 (0.0-0.4); EOSINOPHILS % 0.3 % (0.0-6.0); LYMPHOCYTES # (AUTO) 5.6 (1.0-3.2); LYMPHOCYTES % 20.4 % (18.0-39.1); MEAN CORPUSCULAR HEMOGLOBIN 28.1 pg (28-32); MEAN CORPUSCULAR HGB CONC 28.3 g/dL (31-35); MEAN CORPUSCULAR VOLUME 99.2 fL (81-99); MONOCYTES % 14.3 % (4.4-11.3); NEUTROPHILS # (AUTO) 15.3 (2.1-6.9); NEUTROPHILS % 55.4 % (38.7-80.0); PLATELET COUNT 131 x10e3/uL (140-360); RED BLOOD COUNT 1.21 x10e6/uL (4.3-5.7); RED CELL DISTRIBUTION WIDTH 16.7 % (11.7-14.4)
[2019-04-06 05:23] LABS: HEMOGLOBIN 3.4 g/dL (14.0-18.0)
[2019-04-06 05:43] LABS: CALCIUM 7.5 mg/dL (8.4-10.2); CREATININE, SERUM 2.08 mg/dL (0.72-1.25)
--- NOTE | 2019-04-06 06:10 | NUR ---
Remote Sensing Technologist notified of pt's . Pt's family out of room. Will attempt to follow up as able. Will mail condolence letter and grief brochure to [facility]. [facility] Department O: [phone] Pager: [phone] ([phone] number calling from)
--- NOTE | 2019-04-06 06:39 | NUR ---
All consulting doctors notified of pt's .
--- NOTE | 2019-04-06 07:17 | NUR ---
Abhishek Oneil, Farm Consultant, to bedside conversing with and daughter of the patient. [facility] ([address] [phone] en route to retrieve body of the patient as per , Emy Barriost, request. Dr Cortes to bedside.
--- NOTE | 2019-04-06 08:57 | NUR ---
Body released to Stevo Payton of [facility] [address]
[2019-04-06 09:19] LABS: BAND NEUTROPHILS % (MANUAL) 1 %; HYPOCHROMASIA MARKED; LYMPHOCYTES % (MANUAL) 21 % (19-48); MONOCYTES % (MANUAL) 12 % (3.4-9.0); NEUTROPHILS % (MANUAL) 64 % (40-74); NUCLEATED RED BLOOD CELLS 11; PROMYELOCYTES % (MANUAL) 2 % (0-0)
[2019-04-06 09:20] LABS: ACANTHOCYTES MODERATE; RBC MORPHOLOGY COMMENT ABNORMAL; TEAR DROP CELLS FEW
[2019-04-06 09:21] LABS: PLATELET ESTIMATE ADEQUATE; PLATELET MORPHOLOGY COMMENT NORMAL
[2019-04-06] MEDS ORDERED: WATER STERILE 10 ML VIAL ONE (14:04)
[2019-04-06] MEDS ORDERED: ETOMIDATE 40 MG/ 20ML VIAL IV ONE (14:04)
[2019-04-06] MEDS ORDERED: VECURONIUM BROMIDE FOR INJ 20 MG VIAL ONE (14:04)
[2019-04-06] MEDS ORDERED: EPINEPHRINE HCL SYRINGE ONE (14:04)
--- NOTE | 2019-04-10 02:51 | Discharge Summary ---
HOSPITAL COURSE: Mr. Beltran is a 54-year-old gentleman, who came in with a history of chronic hepatitis C, history of portal vein thrombosis in the past, history of ascites and the patient with fever greater than 100.7 degrees. The patient came in and consult was done with Dr. Lyon and also with Dr. Cruz, and his portal vein thrombosis which was discovered on CT. The patient had multifocal portal vein thrombosis and also portal vein hypertension. The patient also had ascites. Initially, the ascites ultrasound was done, could not be drained and the patient did not have drainage secondary to this portal vein thrombosis. Dr. Cruz was consulted and the plan was to anticoagulate the patient for at least 6 months, this was told up onto the patient and also the risk of bleeding given to the patient in detail. The patient agreed with the plan and also Dr. Lyon was consulted. The patient was followed through on a daily basis with low-molecular weight Lovenox. The patient felt better in the 1st two days and felt like he was moving better and getting better, but on the 4th day, the patient developed some ascites. An ultrasound repeat was done and the patient also noted a drop in hemoglobin. The patient also underwent a paracentesis with the amount of ascites that was present. The patient did drop his hematocrit to 5.8 at one point. The patient was transfused at that point of time, and the transfusion dropped the hemoglobin to 6.8. The patient continued to do well at that point of time. However, after transfusion, the patient continued to have lots of belly pain and abdominal pain. Pain medicine had to be increased and this was mentioned to the patient that increasing it would decrease his blood pressure, the patient still wanted it. I did give him morphine upper doses 4 mg q.3 hours. The patient's blood pressure did drop prior to the day of admission to the ICU. The patient's hemoglobin dropped again to 6.8. We talked to the patient about transfusion. At that point in time, the patient did not want a transfusion because of the pain that he experienced the last one. We held back on transfusion at that time. After talking to the patient and decided to stabilize the patient and to be asked about the continue with both medication and he agreed with it. We continued Lovenox, but on that night the patient developed abdominal pain that was more intense. Blood pressures dropped drastically. A rapid response was called and the patient was transferred to ICU, started on pressors. Unfortunately, the patient developed bleeding, hemoglobin dropped to 3.4. The blood pressure is not responding to pressors. Dr. Perez talk to the patient's family and the patient was made DNR and unfortunately the patient . The time of internalization was at 5:[address] Lim. FINAL DIAGNOSES AND REASON FOR : Portal vein thrombosis, portal hypertension, bleeding and ascites and history of encephalopathy and history of cirrhosis with liver failure. David Cortes MD ASJ/MODL /[id number]
--- NOTE | 2019-04-27 22:40 | NUR ---
PATIENT INFORMATION ENTERED INTO THE LOG ON 04/06/19 @ 0300AM.
--- NOTE | 2019-04-30 18:37 | NUR ---
7-25-19 restraint log completed
== END 2019-04-06 09:16 | disposition expired | DRG 441 ==
LOC: ER 04:32 → ERHOLD 07:29 → IMCU 09:02 → OBSVTOIN 03-29 10:36 → MED/SURG2 03-30 18:29 → ICU 04-06 03:00
PROVIDERS: ADMIT Family Medicine; ATTEND Family Medicine
PROC: 0W9G3ZZ Drainage of Peritoneal Cavity, Percutaneous Approach (ICD-10-PCS; 2019-04-03)
PROC: 30250N1 (ICD-10-PCS; principal; 2019-04-04)
PROC: 0BH17EZ Insertion of Endotracheal Airway into Trachea, Via Natural or Artificial Opening (ICD-10-PCS; 2019-04-06)
PROC: 5A1935Z Respiratory Ventilation, Less than 24 Consecutive Hours (ICD-10-PCS; 2019-04-06)
DX: I81 Portal vein thrombosis (principal); E43 Unspecified severe protein-calorie malnutrition; J96.00 Acute respiratory failure, unspecified whether with hypoxia or hypercapnia; K72.00 Acute and subacute hepatic failure without coma; D61.818 Other pancytopenia; R18.8 Other ascites; K76.6 Portal hypertension; I85.10 Secondary esophageal varices without bleeding; I10 Essential (primary) hypertension; K74.60 Unspecified cirrhosis of liver; R16.1 Splenomegaly, not elsewhere classified; D63.8 Anemia in other chronic diseases classified elsewhere; J44.9 Chronic obstructive pulmonary disease, unspecified; D50.0 Iron deficiency anemia secondary to blood loss (chronic); I25.10 Atherosclerotic heart disease of native coronary artery without angina pectoris; F41.9 Anxiety disorder, unspecified; B19.20 Unspecified viral hepatitis C without hepatic coma
CPT/HCPCS: 31500; 36415; 36600; 49083; 71045; 74177; 74470; 76705; 80048; 80053; 82105; 82140; 82150; 82805; 82948; 83540; 83690; 83735; 84466; 85025; 85610; 85730; 86850; 86900; 86920; 87040; 88112; 88305; 89051; 93005; 94002; 99284; C1729; G0378; J0171; J0696; J1650; J1940; J2250; J2270; J2310; J2405; J7030; J7040; J7050; J7121; P9016; Q9967